=== PATIENT | male | born 1995 | race Hispanic/Latino ===

== ENCOUNTER 2025-02-14 16:53 | Emergency (ER) | payer OTHER, SELFPAY ==
[2025-02-14] VITALS (8 sets, daily range): BP systolic 106–181; BP diastolic 65–116; PULSE 90–116; RESP 14–20; TEMP 36.5; O2SAT 98–100
--- NOTE | ~2025-02-14 | XR_ITS ---
XR chest 2V Ordering provider: MANAGER OF MARKETING PHYSICIAN History: 29 years Male with . chest pain x 1 wk, vapes . Comparison: None. FINDINGS: MEDIASTINUM: The cardiac silhouette is not enlarged. LUNGS: No infiltrates, effusions or pneumothorax. OTHER: No free air under the diaphragm. IMPRESSION: No acute cardiopulmonary pathology. Reviewed, dictated and finalized at location A.
--- NOTE | ~2025-02-14 | CT_ITS ---
CT abdomen pelvis w con Ordering provider: Juliana Santos PA-C History: 29 years Male with . epigastric pain, transaminitis, alcohol abuse . Comparison: None. Technique: CT abdomen and pelvis with IV and without oral contrast. Automated exposure control and it erative reconstruction technique were employed. The dose-length product was 439.57 mGy-cm. 100 mL Omn ipaque 350 was given IV Findings: VISUALIZED LOWER CHEST: Normal. UPPER ABDOMINAL ORGANS: Liver: Fat infiltration. Area of focal fat infiltration is also seen in the left lobe adjacent to the interlobar fissure. Gallbladder: Normal. Spleen: Normal. Stomach/duodenum: Normal. Pancreas: Focal area of enlargement is seen in the body of the pancreas near to the tail with no defi nite fat stranding seen around the pancreas. Clinical correlation for pancreatitis and follow-up advi sed. Adrenals: Normal. Kidneys: Small hypodensity in the right kidney upper pole suggestive of a cyst. Minimal fullness in t he right renal pelvis with no definite stones. PELVIC ORGANS: The bladder is underfilled with thickened wall. Evaluation for cystitis advised. BOWEL AND MESENTERY: Colon: No evidence of diverticulitis.. Normal appendix. Small Bowel: Normal. No obstruction. Peritoneum/mesentery: No free air or free fluid. No mesenteric lymphadenopathy. RETROPERITONEUM: Normal aorta. No retroperitoneal lymphadenopathy. MUSCULOSKELETAL: Superficial soft tissues: The superficial soft tissues are normal. Bones: Normal spine. IMPRESSION: 1. No evidence of appendicitis, diverticulitis or intestinal obstruction. 2. Focal area of enlargement seen in the body of the pancreas near to the tail with no definite surr ounding fat stranding. Further evaluation for pancreatitis and follow-up advised. 3. Fat infiltration of the liver. 4. Slight thickening of the wall of the urinary bladder. Evaluation for cystitis advised. Reviewed, dictated and finalized at location A. IMPRESSION: 1. No evidence of appendicitis, diverticulitis or intestinal obstruction. 2. Focal area of enlargement seen in the body of the pancreas near to the tail with no definite surrounding fat stranding. Further evaluation for pancreatiti s and follow-up advised. 3. Fat infiltration of the liver. 4. Slight thickening of the wall of the urinary bladder. Evaluation for cystit is advised.
--- NOTE | 2025-02-14 17:02 | ECG_ITS ---
Test Date: 2025-02-14 17:06:13 Measurements Intervals [place] Rate: 115 P: 65 IA: 129 QRS: 22 QRSD: 86 T: 70 QT: 289 QTc: 401 Interpretive Statements SINUS TACHYCARDIA DELAYED PRECORDIAL R/S TRANSITION BASELINE ARTIFACT- I, II, III, AVR, AVL,A VF, V1 ABNORMAL ECG No previous ECG available for comparison Electronically Signed On 02-14-2025 20:22:16 CDT by Stephen Alfonso D.O.
[2025-02-14 17:18] LABS: Basophils Absolute Auto 0.1 K/mm3 (0.0-0.1); Basophils Percent Auto 0.7 % (0.2-1.2); Hematocrit 48.4 % (42.0-52.0); Hemoglobin 16.6 g/dL (14.0-18.0); Immature Granulocyte Absolute 0.03 K/mm3 (0.00-0.031); Immature Granulocyte Percent A 0.3 % (0-0.5); Lymphocytes Absolute Auto 0.65 K/mm3 (0.9-3.2); Lymphocytes Percent Auto 7.5 % (18.3-44.2); Mean Corpuscular HGB Conc 34.3 g/dl (32-36); Mean Corpuscular Volume 84.6 fl (80-100); Mean Platelet Volume 8.6 fl (7.4-10.4); Monocytes Absolute Auto 0.7 K/mm3 (0.1-0.6); Monocytes Percent Auto 8.4 % (2.6-8.5); Neutrophils Absolute Auto 7.2 K/mm3 (1.3-6.7); Neutrophils Percent Auto 83.1 % (45.5-73.1); Platelet Count Result 210 k/mm3 (150-375); Red Blood Count 5.72 M/mm3 (4.6-6.20); White Blood Count 8.6 K/mm3 (4.5-10.0)
[2025-02-14 17:31] LABS: INR 0.9
[2025-02-14 17:32] LABS: Partial Thromboplastin Time 26.8 Seconds (22.3-36.8)
[2025-02-14 17:35] LABS: Alanine Aminotransferase 263 U/L (6-50); Albumin Level 5.3 g/dL (3.5-5.1); Alkaline Phosphatase 93 U/L (38-126); Anion Gap 17 mmol/L (4-12); Aspartate Amino Transferase 225 U/L (17-59); Bilirubin,Total 1.1 mg/dL (0.2-1.3); Blood Urea Nitrogen 7 mg/dL (9-20); Calcium 10.2 mg/dL (8.4-10.2); Carbon Dioxide 23 mmol/L (22-30); Chloride 98 mmol/L (98-107); Estimated CRCL calculation 145 ml/min; Estimated Glomerular Filt Rate > 60; Glucose 112 mg/dL (65-110); Lipase 207 U/L (23-300); Potassium 4.2 mmol/L (3.4-5.0); Sodium 138 mmol/L (137-145); Total Protein 9.3 g/dL (6.3-8.2)
[2025-02-14 17:47] LABS: Troponin I < 0.012 ng/mL (0.000-0.034)
--- NOTE | 2025-02-14 19:59 | ED_ITS ---
HPI - Chest Pain General Chief Complaint: Chest Pain Stated Complaint: chest pain Time Seen by Provider: 02/14/25 19:50 Source: patient Mode of arrival: ambulatory Limitations: no limitations History of Present Illness HPI narrative: This is a 29 year old male that presents to the ER for chest pain. Reports symptoms ongoing over the last week. Reports chest discomfort, palpitations, anxiety, shakiness. Reports his symptoms are relieved by drinking. Patient drinks about 12 beers a night. Reports he would like to stop drinking. Related Data Allergies Allergy/AdvReac Type Severity Reaction Status Date / Time No Known Allergies Allergy Verified 02/14/25 17:01 Review of Systems 2 Review of Systems: All systems reviewed & are unremarkable except as noted in HPI and below PMFSH Past Medical History Medical History (Updated 02/14/25 @ 23:12 by Juliana Santos PA-C) History of atrial fibrillation Social History Social History (Updated 02/14/25 @ 20:01 by Juliana Santos PA-C) Alcohol intake: current Exam 2 Narrative: GENERAL: Anxious, shaky HEAD: Normocephalic, atraumatic. EYES: EOMI. ENT: Nares clear, no rhinorrhea or epistaxis. Mucous membranes moist. Oropharynx without tonsillar hypertrophy exudate or other lesions. CHEST: Clear to auscultation. No respiratory distress. No wheezes rales or rhonchi HEART: Regular rate and rhythm. No murmur heard. Normal peripheral pulses. ABDOMEN: Soft, nontender, nondistended, normal active bowel sounds. EXTREMITIES: Normal range of motion. No edema. SKIN: Warm, dry, no rash. NEURO: No focal deficits. Alert and oriented x3. PSYCH: Anxious Course Course Emergency Course: Patient updated on his workup, resting comfortably. Agrees with plan of care Vital Signs Vital signs: Vital Signs Temperature 97.7 F 02/14/25 16:57 Pulse Rate 116 H 02/14/25 16:57 Respiratory Rate 20 02/14/25 16:57 Blood Pressure 173/116 H 02/14/25 16:57 Pulse Oximetry 99 02/14/25 16:57 Oxygen Delivery Room Air 02/14/25 16:57 Temperature 97.7 F 02/14/25 16:57 Pulse Rate 95 02/14/25 22:57 Respiratory Rate 14 02/14/25 22:57 Blood Pressure 121/90 06/21/25 22:57 Pulse Oximetry 100 02/14/25 22:57 Oxygen Delivery Room Air 02/14/25 19:43 MDM - Chest Pain MDM Narrative Medical decision making narrative: Patient presents the emergency department for symptoms of chest pain, anxiety, shakiness. Reports they are relieved when he drinks alcohol. Reports he drinks beer nightly. He does reports he would like to stop drinking. No previous history of alcohol withdrawal or seizures. Tachycardic and hypertensive upon arrival, hydrated with IV fluids, given dose of Ativan with normalization of his vital signs. CBC without concerning findings. Metabolic panel with transaminitis. Lipase is normal. Urine drug screen is negative. Alcohol level is not elevated. EKG without acute ST changes, baseline and 3 hour troponin are negative. Chest x-ray without acute cardiopulmonary abnormality. CT abdomen and pelvis shows some enlargement of the pancreas, patient's lipase is normal. Fatty infiltration of the liver. Patient updated on his workup, resting comfortably. Agrees with plan of care. He will be started on Librium taper and pantoprazole. Provided resources for alcohol abuse. Given warnings to return to the ER Differential Diagnosis Differential diagnosis: Likely stable angina, unstable angina pectoris, costochondritis, chest pain, biliary colic and other (Pancreatitis) Lab Data Attestation: I reviewed the patient's lab results. 02/14/25 17:13 02/14/25 17:13 Labs: Lab Results 02/14/25 02/14/25 02/14/25 Range/Units 17:13 20:24 22:02 WBC 8.6 (4.5-10.0) K/mm3 RBC 5.72 (4.6-6.20) M/mm3 Hgb 16.6 (14.0-18.0) g/dL Hct 48.4 (42.0-52.0) % MCV 84.6 (80-100) fl MCH 29.0 (26-34) pg MCHC 34.3 (32-36) g/dl RDW 13.0 (11.5-14.5) % Plt Count 210 (150-375) k/mm3 MPV 8.6 (7.4-10.4) fl Immature Gran % (Auto) 0.3 (0-0.5) % Neut % (Auto) 83.1 H (45.5-73.1) % Lymph % (Auto) 7.5 L (18.3-44.2) % [place] % (Auto) 8.4 (2.6-8.5) % Eos % (Auto) 0.0 (0-4.4) % Baso % (Auto) 0.7 (0.2-1.2) % Lymph # (Auto) 0.65 L (0.9-3.2) K/mm3 [place] # (Auto) 0.7 H (0.1-0.6) K/mm3 Eos # (Auto) 0.0 (0-0.3) K/mm3 Baso # (Auto) 0.1 (0.0-0.1) K/mm3 Abs Immat Gran (auto) 0.03 (0.00-0.031) K/mm3 Absolute Neuts (auto) 7.2 H (1.3-6.7) K/mm3 Absolute Nucleated RBC 0.000 (0.0-0.012) K/mm3 Nucleated RBC % 0.0 (0.0-0.2) % PT 12.0 (11.1-14.7) Seconds INR 0.9 APTT 26.8 (22.3-36.8) Seconds Sodium 138 (137-145) mmol/L Potassium 4.2 (3.4-5.0) mmol/L Chloride 98 (98-107) mmol/L Carbon Dioxide 23 (22-30) mmol/L Anion Gap 17 H (4-12) mmol/L BUN 7 L (9-20) mg/dL Creatinine 0.61 L (0.7-1.3) mg/dL Estim Creat Clear Calc 145 ml/min Estimated GFR > 60 (59 - ) Glucose 112 H (65-110) mg/dL Calcium 10.2 (8.4-10.2) mg/dL Total Bilirubin 1.1 (0.2-1.3) mg/dL AST 225 H (17-59) U/L ALT 263 H (6-50) U/L Alkaline Phosphatase 93 (38-126) U/L Troponin I < 0.012 < 0.012 (0.000-0.034) ng/mL Total Protein 9.3 H (6.3-8.2) g/dL Albumin 5.3 H (3.5-5.1) g/dL Lipase 207 (23-300) U/L Urine Opiates Screen Negative (Negative) Urine Methadone Screen Negative (Negative) Ur Barbiturates Screen Negative (Negative) Ur Phencyclidine Scrn Negative (Negative) Ur Amphetamine Screen Negative (Negative) U Benzodiazepines Scrn Negative (Negative) Urine Cocaine Screen Negative (Negative) U Cannabinoids Screen Negative (Negative) Ethyl Alcohol < 10 (<10) mg/dL Imaging Data Radiologist's impression: ITS Impressions Chest X-Ray 02/14/25 18:26 IMPRESSION: No acute cardiopulmonary pathology. Abdomen/Pelvis CT 02/14/25 22:04 IMPRESSION: 1. No evidence of appendicitis, diverticulitis or intestinal obstruction. 2. Focal area of enlargement seen in the body of the pancreas near to the tail with no definite surrounding fat stranding. Further evaluation for pancreatitis and follow-up advised. 3. Fat infiltration of the liver. 4. Slight thickening of the wall of the urinary bladder. Evaluation for cystitis advised. ECG Data EKG #1: ECG completion date: 02/14/25 EKG Interpretation: tachycardia, sinus rhythm, no ST changes and normal QT Critical Care Time Critical Care Time Critical Care Time: No Discharge Plan Discharge Clinical Impression: Alcohol abuse, Transaminitis Chest pain Qualifiers: Chest pain type: unspecified Qualified Code(s): R07.9 - Chest pain, unspecified Patient Disposition: Home Condition: Improved Instructions: Chest Pain (ED), Abuse of Alcohol (ED), Transaminitis (ED) Additional Instructions: Return to the emergency department if you experience fever, chest pain, shortness of breath, abdominal pain with nausea and vomiting, weakness, numbness, you pass out, or any other symptoms that are concerning to you. Take Chlordiazepoxide for your withdrawal symptoms. Take pantoprazole as prescribed Follow up with resources provided for alcohol abuse Patient Language: French Prescriptions: New chlordiazepoxide HCl 25 mg capsule See Rx Instructions .ROUTE .COMPLEX PRN (Reason: alcohol withdrawal) Qty: 20 0RF Rx Instructions: Day 1, 50mg every 6 hours. Day 2, 50mg every 8 hours. Day 3, 50mg every 12 hours. Day 4, 25mg every 12 hours, then discontinue. pantoprazole 40 mg tablet,delayed release (DR/EC) 40 mg PO HS 28 Days Qty: 28 0RF Follow-up/Referrals: PHYSICIAN,SERVICE OPERATIONS MANAGER [Primary Care Provider] - Valentin Davis MD [Physician] - Quality HEART score for chest pain patients History: slightly suspicious ECG: normal Age: < or = to 45 years Risk factors: 1 or 2 risk factors Troponin: < or = to 1x normal limit Heart score: 1
[2025-02-14 20:55] LABS: Ethanol < 10 mg/dL (<10)
[2025-02-14 21:06] LABS: Troponin I < 0.012 ng/mL (0.000-0.034)
[2025-02-14] MEDS: SODIUM CHLORIDE 0.9% IV 1,000 ML 999 ML IV CONT (21:13)
[2025-02-14] MEDS: ONDANSETRON INJ 4 MG/2 ML VIAL IV PUSH (21:13)
[2025-02-14] MEDS: FAMOTIDINE 20 MG/2 ML VIAL IV PUSH (21:15)
[2025-02-14] MEDS: LORazepam INJ (*CRX) 2 MG/ML VIAL 1 MG IV PUSH (21:17)
[2025-02-14 22:26] LABS: Amphetamine Screen Urine Negative (Negative); Barbiturate Screen Urine Negative (Negative); Benzodiazepines Screen Urine Negative (Negative); Cannabinoid Screen Urine Negative (Negative); Cocaine Screen Urine Negative (Negative); Methadone Screen Urine Negative (Negative); Opiate Screen Urine Negative (Negative); Phencyclidine Screen Urine Negative (Negative)
[2025-02-14] MEDS: chlordiazePOXIDE (*CRX) 25 MG CAPSULE 50 MG PO (23:16)
== END 2025-02-14 23:33 | disposition home or self-care (01) ==
PROVIDERS: Emergency Provider Physician Assistant
DX: R07.89 Other chest pain (principal); F10.10 Alcohol abuse, uncomplicated; Y90.0 Blood alcohol level of less than 20 mg/100 ml; R74.01 Elevation of levels of liver transaminase levels; I48.91 Unspecified atrial fibrillation; R00.0 Tachycardia, unspecified; R94.31 Abnormal electrocardiogram [ECG] [EKG]
CPT/HCPCS: 36415; 71046; 74177; 80053; 80307; 82077; 83690; 84484; 85025; 85610; 85730; 93005; 96361; 96374; 96375; 99284; A9270; J2060; J2405; J7030; Q9967

== ENCOUNTER 2025-03-13 03:15 | Emergency (ER) | payer OTHER, SELFPAY ==
--- NOTE | ~2025-03-13 | XR_ITS ---
Clinical Indication: Chest pain PA and lateral views of the chest: Comparison: 02/14/2025 Findings: The lungs are clear, without evidence of focal consolidation or pleural effusion. Cardiome diastinal silhouette is within normal limits. Bones and soft tissues are unremarkable. Impression: Normal chest. Reviewed, dictated and finalized at location . Impression: Normal chest.
[2025-03-13 03:16] VITALS: BP 135/100; PULSE 108; RESP 16; TEMP 36.3; O2SAT 97
--- OUTSIDE RECORDS SUMMARY | 2025-03-13 03:17 | XMS_ITS | Clinical Summary ---
Author Organization [facility] Address [address] [place] [id number] Care Team Providers Care Process Checker Name Role Phone No, Physician Primary Care Provider [phone] Allergies No known active allergies Medications No known medications Active Problems Problem Noted Date Diagnosed Date Alcohol abuse with withdrawal without complicati on 02/05/2025 Alcohol withdrawal syndrome without complication 01/28/2024 Atrial fibrillation with RVR 08/24/2021 Alcohol abuse Encounters Date Type Department Care Team Description 02/14/2025 1:19 PM CDT - 02/14/2025 4:16 PM CDT Emergency [address] [address] Discharge Disposition: Left without being seen 02/11/[address] [address] Pricila Basilio RN 02/10/2025 3:19 PM CDT - 02/10/2025 4:46 PM CDT Emergency [address] [address] Discharge Disposition: Left Against Medical Advice 02/05/2025 10:54 AM CDT - 02/06/2025 10:55 AM CDT Hospital Encounter [address] [address] Martin Potts MD Smith, Jose Johnson MD Alcohol abuse with withdrawal without complication (HCC) (Primary Dx); Sinus tachycardia Discharge Disposition: Left Against Medical Advice from Last 3 Months Social History Tobacco Use Types Packs/Day Years Used Date Smoking Tobacco: Never Smokeless Tobacco: Never Tobacco Cessation:Counseling Given: Not Answered Alcohol Use Standard Drinks/Week Comments Yes 6 (1 standard drink = 0.6 oz pur e alcohol) [facility] Utilities Answer Date Recorded In the past 12 months has th e electric, gas, oil, or water company threatened to shut off services in your home? No 02/06/2025 Social Connection and Isolat ion Panel [NHANES] Answer Date Recorded In a typical week, how many times do you talk on the phone with family, friends, or neighbors? More than three times a week 02/06/2025 How often do you get togethe r with friends or relatives? More than three times a week 02/06/2025 How often do you attend chur ch or judaism services? 1 to 4 times per year 02/06/2025 Do you belong to any clubs o r organizations such as mosque groups, unions, fraternal or athletic groups, or school groups? No 02/06/2025 How often do you attend meet ings of the clubs or organizations you belong to? Never 02/06/2025 Are you , , di vorced, , never , or living with a partner? Never 02/06/2025 AUDIT-C Answer Date Recorded Q1: How often do you have a drink containing alcohol? 4 or more times a week 01/28/2024 Q2: How many drinks containi ng alcohol do you have on a typical day when you are drinking? 7 to 9 Q3: How often do you have si x or more drinks on one occasion? Daily or almost daily 01/28/2024 Overall Financial Resource Strain (CARDIA) Answe r Date Recorded How hard is it for you to pa y for the very basics like food, housing, medical care, and heating? Somewhat hard 02/06/2025 Hunger Vital Sign Answer Date Recorded Within the past 12 months, y ou worried that your food would run out before you got the money to buy more. Never true 02/07/20 25 Within the past 12 months, t he food you bought just didn't last and you didn't have money to get more. Never true 02/06/2025 PRAPARE - Transportation Answer Date Re corded In the past 12 months, has l ack of transportation kept you from medical appointments or from getting medications? No 01/25 In the past 12 months, has l ack of transportation kept you from meetings, work, or from getting things needed for daily living? No 02/06/2025 Housing Stability Vital Sign Answer Chase e Recorded In the last 12 months, was t here a time when you were not able to pay the mortgage or rent on time? No 02/06/2025 In the past 12 months, how m any times have you moved where you were living? 0 02/06/2025 At any time in the past 12 m [facility], were you homeless or living in a jail (including now)? No 02/06/2025 Personal Safety Answer Date Recorded Have you ever been in or are you currently in a harmful physical or emotional relationship or is someone making you feel afraid or unsafe? Denies 02/14/2025 Sex and Gender Information Value Date Recorded Sex Assigned at Not on file Legal Sex Male 8:46 PM [employer] Gender Identity Male 08/26/2023 6:42 AM [employer] Sexual Orientation Not on file Obstetrics History Last Filed Vital Signs Vital Sign Reading Time Taken Comments Blood Pressure 165/115 02/14/2025 2:59 PM CDT Pulse 123 02/14/2025 2:59 PM CDT Temperature 36.7 C (98.1 F) 02/14/2025 2:59 PM CDT Respiratory Rate 16 02/14/2025 2:59 PM CDT Oxygen Saturation 98% 02/14/2025 2:59 PM CDT Inhaled Oxygen Concentration - - Weight 81.6 kg (180 lb) 02/14/2025 2:59 PM CDT Height 170.2 cm (5' 7) 02/14/2025 2:59 PM CDT Body Mass Index 28.19 02/14/2025 2:59 PM CDT Plan of Treatment Health Maintenance Due Date Last Done Comments Depression Screening 1997 Regular Well Visit/Exam 18-64 2015 Influenza Vaccine (Season Ended) 2025 06/02/20 13 DTaP/Tdap/Td Vaccine (4 - Td or Tdap) 06/11/2025 06/11/2015, 03/26/2009, 04/11/2001 Hepatitis B Screening Completed 03/18/1998 , 1997, 1997 Pneumococcal vaccine <65 Completed 04/11/2001 Varicella Vaccines Completed 03/09/2007, 03/19/1998 HPV Vaccines Completed 10/07/2013, 02/2013, 04/01/2013 Hepatitis C Screening Completed 01/29/2024 Procedures Procedure Name Priority Date/Time Associated Diagnosis Comments TROPONIN T HIGH-SENSITIVITY 2-HOUR Timed 02/14/2025 3:41 PM CDT XR CHEST PA LATERAL 2 VIEWS ED 02/14/2025 2:17 PM CDT EGFR STAT 02/14/2025 1:44 PM CDT DIFFERENTIAL AUTO STAT 02/14/2025 1:4 4 PM CDT TROPONIN T HIGH-SENSITIVITY SERIES (BASELINE, 2HR, 4HR, 6HR) STAT 02/14/2025 1:44 PM CDT COMPREHENSIVE METABOLIC PANEL STAT 02/14/2025 1:44 PM CDT CBC WITH AUTO DIFFERENTIAL STAT 02/14/2025 1:44 PM CDT ECG 12-LEAD STAT 02/14/2025 1:26 PM CDT EGFR Routine 02/06/2025 2:36 AM CDT BASIC METABOLIC PANEL Routine 02/06/2025 2:36 AM CDT CBC WITHOUT DIFFERENTIAL Routine 02/06/2025 2:36 AM CDT D-DIMER, QUANTITATIVE STAT 02/05/2025 2:31 PM CDT ECG 12-LEAD Routine 02/05/2025 2:14 PM CDT THYROID FUNCTION CASCADE Timed 02/05/2025 12:32 PM CDT LIPASE Timed 02/05/2025 12:32 PM CDT TROPONIN T HIGH-SENSITIVITY 2-HOUR Timed 02/05/2025 12:32 PM CDT PRO B-TYPE NATRIURETIC PEPTIDE STAT 02/05/2025 10:53 AM CDT TROPONIN T HIGH-SENSITIVITY SERIES (BASELINE, 2HR, 4HR, 6HR) STAT 02/05/2025 10:53 AM CDT MAGNESIUM STAT 02/05/2025 10:53 AM CDT EGFR STAT 02/05/2025 10:53 AM CDT URINALYSIS, MICROSCOPIC ONLY STAT 02/05/2025 10:53 AM CDT DIFFERENTIAL AUTO STAT 02/05/2025 10: 53 AM CDT DRUGS OF ABUSE SCREEN, URINE WITHOUT CONFIRMATION STAT 02/05/2025 10:53 AM CDT ETHANOL STAT 02/05/2025 10:53 AM CDT COMPREHENSIVE METABOLIC PANEL STAT 02/05/2025 10:53 AM CDT CBC WITH AUTO DIFFERENTIAL STAT 02/05/2025 10:53 AM CDT URINALYSIS AND REFLEX TO MICROSCOPIC AND CULTURE STAT 02/05/2025 10:53 AM CDT ECG 12-LEAD STAT 02/05/2025 10:40 AM CDT HEPATITIS PANEL, ACUTE Routine 4:59 AM CDT from Last 3 Months or Most Recently Relevant to Health Maintenance Results * Troponin T high-sensitivity 2-hour (02/14/2025 3:41 PM CDT) Trop T hs See Comment <=22 Comment: Credited due to hemolysis; if immediate recollection is needed, enter an order for a standalone troponin. Do not reorder the troponin series. Interpretive Data For further hscTnT resources including the diagnostic algorithm and an aid in interpretation, copy and paste this link: https://nrl.testcatalog.org/show/hsTrop Current Interpretive Data last revised 2020. Trop T hs interp See Comment CARMELLA HORTON Comment:Credited due to hemo lysis. If immediate recollection needed order a stand alone troponin. Blood 02/14/2025 3:41 PM CDT 02/14/2025 3:52 PM CDT us Tess STERLING LAB BLOOD ORDERABLES Final Re sult CARMELLA HORTON [address] [facility] [place] [address] * XR Chest PA Lateral 2 Views (02/14/2025 2:17 PM CDT) Anatomical Region Laterality Modality Body, Chest N/A Computed Radiogr aphy 02/14/2025 2:39 PM CDT Narrative 02/14/2025 2:42 PM CDT EXAM DESCRIPTION: XR CHEST PA LATERAL 2 VIEWS REASON FOR STUDY: chest pain Chest pain x 2 weeks and nausea and vomiting x 3 days. Pt states that he has HTN, denies meds. Pt states he uses ETOH daily for blood pressure and chest pain. He states this numbs his pain. TECHNIQUE: Frontal and lateral radiographic view(s) of the chest. COMPARISON: None available. FINDINGS: LUNGS: No focal opacity, pleural effusion, or pneumothorax. HEART/MEDIASTINUM: Cardiac silhouette normal in size. Mediastinal and hilar contours appear normal. LINES/TUBES: None. BONES: No acute osseous abnormality. IMPRESSION: No acute cardiopulmonary abnormality. THIS IS AN ELECTRONICALLY VERIFIED FINAL REPORT 02/14/2025 2:42 PM - Electronically signed by Freedom Thomas M.D. T: Report ID: [id number] Reading Location: [place] [address] Procedure Note Freedom Thomas, DO - 02/14/2025 EXAM DESCRIPTION: XR CHEST PA LATERAL 2 VIEWS REASON FOR STUDY: chest pain Chest pain x 2 weeks and nausea and vomiting x 3 days. Pt states that hehas HTN, denies meds. Pt states he uses ETOH daily for blood pressureand chest pain. He states this numbs his pain. TECHNIQUE: Frontal and lateral radiographic view(s) of the chest. COMPARISON: None available. FINDINGS: LUNGS: No focal opacity, pleural effusion, or pneumothorax. HEART/MEDIASTINUM: Cardiac silhouette normal in size. Mediastinal andhilar contours appear normal. LINES/TUBES: None. BONES: No acute osseous abnormality. IMPRESSION: No acute cardiopulmonary abnormality. THIS IS AN ELECTRONICALLY VERIFIED FINAL REPORT 02/14/2025 2:42 PM - Electronically signed by Freedom Thomas M.D. T: Report ID: [id number] Reading Location: [place] [address] Tess STERLING IMG XR PROCEDURES Final Resul t * Troponin T high-sensitivity series (baseline, 2hr, 4hr, 6hr) (02/14/2025 1:44 PM CDT) [facility] Trop T hs <6 <=22 ng/L Comment: Interpretive Data For further hscTnT resources including the diagnostic algorithm and an aid in interpretation, copy and paste this link: https://nrl.testcatalog.org/show/hsTrop Current Interpretive Data last revised 2020. Blood 02/14/2025 1:44 PM CDT 02/14/2025 1:48 PM CDT Tess STERLING LAB BLOOD ORDERABLES Final Re sult CARMELLA [address] [facility] Department [place] [address] * eGFR (02/14/2025 1:44 PM CDT) [facility] eGFR >90 >=60 mL/min/1. 73 m2 Comment: Interpretive Data Reference Interval Normal >/= 90 mL/min/1.73m2 Mildly decreased* 60 - 89 mL/min/1.73m2 Mildly to moderately decreased 45 - 59 mL/min/1.73m2 Moderately to severely decreased 30 - 44 mL/min/1.73m2 Severely decreased 15 - 29 mL/min/1.73m2 Kidney Failure < 15 mL/min/1.73m2 *Relative to young adult level Estimated glomerular filtration rate is determined by the 2020 CKD-EPI equation recommended by the National Kidney Foundation (A Unifying Approach to GFR Estimation: Recommendations of the NKF-ASK Task Force on Reassessing the Inclusion of Race in Diagnosing Kidney Disease, JASN 202). The CKD-EPI equation should not be used for patients with unstable renal function and has not been validated in children and those over 70. Current interpretive data was last reviewed 2021. Blood 02/14/2025 1:44 PM CDT 02/14/2025 1:48 PM CDT us Tess STERLING LAB BLOOD ORDERABLES Final Re sult [place] [id number] [facility] Department [place] [address] * (ABNORMAL) Differential, auto (02/14/2025 1:44 PM CDT) Pathologist [facility] Neutrophil abs 4.12 1.50 - 6.50 K/cumm Imm gran abs 0.01 0.00 - 0.10 K/cumm [facility] Lymphocyte abs 0.68(L) 0.80 - 3.30 K/cumm [facility] Monocyte abs 0.45 0.20 - 0.80 K/cumm [facility] Eosinophil abs 0.02 0.00 - 0.50 K/cumm [facility] Basophil abs 0.05 0.00 - 0.10 K/cumm [facility] Neutrophil pct 77.3 % [facility] Comment: Interpretive Data Percent cell count reference ranges are not reported, since discordance with absolute values may lead to misinterpretation of CBC data. Current Interpretive Data was last revised on 2017. Imm gran pct 0.2 % [facility] Comment: Interpretive Data Percent cell count reference ranges are not reported, since discordance with absolute values may lead to misinterpretation of CBC data. Current Interpretive Data was last revised on 2017. Lymphocyte pct 12.8 % [facility] Comment: Interpretive Data Percent cell count reference ranges are not reported, since discordance with absolute values may lead to misinterpretation of CBC data. Current Interpretive Data was last revised on 2017. Monocyte pct 8.4 % [facility] Comment: Interpretive Data Percent cell count reference ranges are not reported, since discordance with absolute values may lead to misinterpretation of CBC data. Current Interpretive Data was last revised on 2017. Eosinophil pct 0.4 % [facility] Comment: Interpretive Data Percent cell count reference ranges are not reported, since discordance with absolute values may lead to misinterpretation of CBC data. Current Interpretive Data was last revised on 2017. Basophil pct 0.9 % [facility] Comment: Interpretive Data Percent cell count reference ranges are not reported, since discordance with absolute values may lead to misinterpretation of CBC data. Current Interpretive Data was last revised on 2017. Blood 02/14/2025 1:44 PM CDT 02/14/2025 1:48 PM CDT us Tess STERLING LAB BLOOD ORDERABLES Final Re sult [facility] [address] [facility] Department of Laboratories [place], [place] [id number] * (ABNORMAL) CBC with auto differential (02/14/2025 1:44 PM CDT) Pathologist [facility] WBC 5.33 3.80 - 9.90 K/cumm Hgb 17.0 13.0 - 17.5 g/dL [facility] Hct 48.9 38.9 - 50.3 % [facility] Plt 198 150 - 400 K/cumm [facility] MPV 8.9(L) 9.1 - 12.3 fL [facility] RBC 5.83(H) 4.30 - 5.80 M/cumm [facility] MCV 83.9 81.3 - 96.4 fL [facility] MCH 29.2 27.1 - 33.3 pg [facility] MCHC 34.8 32.3 - 35.7 g/dL [facility] RDW CV 13.0 11.1 - 14.9 % [facility] RDW SD 39.0 35.7 - 48.1 fL [facility] NRBC abs 0.00 0.00 - 0.01 K/cumm [facility] Blood Venous blood specimen / Unknown 02/14/2025 1:44 PM CDT 02/14/2025 1:48 PM CDT us Tess STERLING LAB BLOOD ORDERABLES Final Re sult [facility] [address] [facility] Department [place] [address] * (ABNORMAL) Comprehensive metabolic panel (02/14/2025 1:44 PM CDT) Sodium 139 135 - 145 mmol/L Potassium, pl 4.0 3.3 - 4.9 mmol/L [facility] Comment:Hemolyzed; Potassium value may be falsely elevated by as much as 1.0 mmol/L. Suggest redraw and reanalysis. Chloride 98 97 - 110 mmol/L [facility] CO2 21(L) 22 - 32 mmol/L [facility] Anion gap 20(H) 2 - 15 mmol/L [facility] BUN 7 6 - 25 mg/dL [facility] Creatinine 0.63(L) 0.80 - 1.30 mg/dL [facility] Glucose 100 70 - 199 mg/dL [facility] Comment: Interpretive Data Fasting glucose >/= 126 mg/dl is diagnostic for diabetes. Fasting is defined as no caloric intake for at least 8 hours. Fasting glucose between 100 mg/dl to 125 mg/dl is diagnostic of prediabetes. In a patient with classic symptoms of hyperglycemia or hyperglycemic crisis, a random glucose >/= 200 mg/dl is diagnostic for diabetes. In the absence of unequivocal hyperglycemia, results should be confirmed by repeat testing. The classification and Diagnosis of Diabetes Diabetes Care 2021; 46: S19-S40. Current interpretive data was last revised 2022. Calcium 9.8 8.5 - 10.3 mg/dL [facility] Bilirubin, total 0.7 0.1 - 1.2 mg/dL [facility] Protein, pl 8.6(H) 6.5 - 8.5 g/dL [facility] Albumin 5.0 3.5 - 5.0 g/dL [facility] Alk phos 86 40 - 130 Units/L [facility] ALT 238(H) 7 - 55 Units/L [facility] AST 203(H) 10 - 50 Units/L [facility] Comment:Hemolyzed; result ma y be falsely elevated Blood 02/14/2025 1:44 PM CDT 02/14/2025 1:48 PM CDT Tess STERLING LAB BLOOD ORDERABLES Final Re sult Performing Organization Address City/[facility]/ZIP Co de Phone Number [facility] [address] [facility] Department [place] [address] * ECG 12 lead (02/14/2025 1:26 PM CDT) Pathologist [facility] Ventricular Rate EKG/Min 117 BPM [facility] Atrial Rate 117 BPM [facility] NV-Interval (MSEC) 126 ms [facility] QRS-Interval (MSEC) 78 ms [facility] QT-Interval (MSEC) 308 ms [facility] QTc 429 ms [facility] P [place] 51 degrees [facility] R [place] 39 degrees [facility] T [place] 59 degrees [facility] Diagnosis Sinus tachycardia Otherwise normal ECG When compared with ECG of 05-FEB-2025 14:14, No significant change was found Confirmed by AMANDA MCCRACKEN M.D. ([id number]) on 02/16/2025 9:13:41 AM [facility] 02/14/2025 1:26 PM CDT 02/16/2025 9:13 AM CDT us Tess STERLING ECG ORDERABLES Final Result Performing Organization Address City/[facility]/ZIP Co de Phone Number [facility] * eGFR (02/06/2025 2:36 AM CDT) Pathologist [facility] eGFR >90 >=60 mL/min/1. 73 m2 Comment: Interpretive Data Reference Interval Normal >/= 90 mL/min/1.73m2 Mildly decreased* 60 - 89 mL/min/1.73m2 Mildly to moderately decreased 45 - 59 mL/min/1.73m2 Moderately to severely decreased 30 - 44 mL/min/1.73m2 Severely decreased 15 - 29 mL/min/1.73m2 Kidney Failure < 15 mL/min/1.73m2 *Relative to young adult level Estimated glomerular filtration rate is determined by the 2020 CKD-EPI equation recommended by the National Kidney Foundation (A Unifying Approach to GFR Estimation: Recommendations of the NKF-ASK Task Force on Reassessing the Inclusion of Race in Diagnosing Kidney Disease, JASN 2020). The CKD-EPI equation should not be used for patients with unstable renal function and has not been validated in children and those over 70. Current interpretive data was last reviewed 2021. Blood 02/06/2025 2:36 AM CDT 02/06/2025 3:00 AM CDT us Melanie Guzman NP LAB BLOOD ORDERABLES Final R esult [facility] [address] [facility] Department [place] [address] * CBC without differential (02/06/2025 2:36 AM CDT) [facility] WBC 7.53 3.80 - 9.90 K/cumm Hgb 15.2 13.0 - 17.5 g/dL [facility] Hct 43.2 38.9 - 50.3 % [facility] Plt 193 150 - 400 K/cumm [facility] MPV 9.3 9.1 - 12.3 fL [facility] RBC 5.00 4.30 - 5.80 M/cumm [facility] MCV 86.4 81.3 - 96.4 fL [facility] MCH 30.4 27.1 - 33.3 pg [facility] MCHC 35.2 32.3 - 35.7 g/dL [facility] RDW CV 12.6 11.1 - 14.9 % [facility] RDW SD 39.5 35.7 - 48.1 fL [facility] NRBC abs 0.00 0.00 - 0.01 K/cumm [facility] Blood 02/06/2025 2:36 AM CDT 02/06/2025 3:00 AM CDT Melanie Guzman LAB BLOOD ORDERABLES Final R esult Performing Organization Address City/[facility] Co de Phone Number [facility] [address] [facility] Department [place] [address] * (ABNORMAL) Basic metabolic panel (02/06/2025 2:36 AM CDT) Pathologist [facility] Sodium 137 135 - 145 mmol/L Potassium, pl 4.2 3.3 - 4.9 mmol/L [facility] Chloride 99 97 - 110 mmol/L [facility] CO2 27 22 - 32 mmol/L [facility] Anion gap 11 2 - 15 mmol/L [facility] BUN 10 6 - 25 mg/dL [facility] Creatinine 0.70(L) 0.80 - 1.30 mg/dL [facility] Glucose 89 70 - 199 mg/dL [facility] Comment: Interpretive Data Fasting glucose >/= 126 mg/dl is diagnostic for diabetes. Fasting is defined as no caloric intake for at least 8 hours. Fasting glucose between 100 mg/dl to 125 mg/dl is diagnostic of prediabetes. In a patient with classic symptoms of hyperglycemia or hyperglycemic crisis, a random glucose >/= 200 mg/dl is diagnostic for diabetes. In the absence of unequivocal hyperglycemia, results should be confirmed by repeat testing. The classification and Diagnosis of Diabetes Diabetes Care 202; 46: S19-S40. Current interpretive data was last revised 2022. Calcium 9.2 8.5 - 10.3 mg/dL [facility] Blood 02/06/2025 2:36 AM CDT 02/06/2025 3:00 AM CDT Melanie Guzman NP LAB BLOOD ORDERABLES Final R esult Performing Organization Address City/[facility] Co de Phone Number CARMELLA [address] [place] [address] * D-dimer, quantitative (02/05/2025 2:31 PM CDT) D-Dimer <270 <=499 ng/mL FEU Comment: Interpretive data FDA approved the D-dimer, in conjunction with a low or moderate pretest probability score, to exclude venous thromboembolic events (VTE) (PE and DVT) in outpatients when the D-dimer result is < 500 ng/ml FEU. Evidence supports using an age-adjusted D-dimer cut-off for outpatients older than 50 (age x 10) to improve specificity without sacrificing sensitivity. Example: age 68, VTE cut-off 680 ng/ml FEU. References; Schaleksandr HT et al. Brit Med J. 2013;346:f2492. Consuelo et al. Annals Int Med. 2015;163:701-11. Current interpretive data was last revised on 2019. Blood 02/05/2025 2:31 PM CDT 02/05/2025 2:33 PM CDT us Martin Potts MD LAB BLOOD ORDERABLE S Final Result Performing Organization Address [facility] Co de Phone Number CARMELLA [address] [place] [address] * ECG 12 lead (02/05/2025 2:14 PM CDT) Ventricular Rate EKG/Min 143 BPM [facility] Atrial Rate 143 BPM [facility] [place]-Interval (MSEC) 122 ms [facility] QRS-Interval (MSEC) 78 ms [facility] QT-Interval (MSEC) 290 ms [facility] QTc 447 ms [facility] P [place] 47 degrees [facility] R [place] -6 degrees [facility] T [place] 72 degrees [facility] Diagnosis Sinus tachycardia Otherwise normal ECG When compared with ECG of 05-FEB-2025 10:40, Rate has increased Confirmed by RUSSEL DON M.D. ([id number]) on 02/09/2025 11:46:12 AM [facility] 02/05/2025 2:14 PM CDT 02/09/2025 11:46 AM CDT us Martin Potts MD ECG ORDERABLES Fin al Result Performing Organization Address City/[facility]/ZIP Co de Phone Number [facility] * Troponin T high-sensitivity 2-hour (02/05/2025 12:32 PM CDT) Trop T hs <6 <=22 ng/L Comment: Interpretive Data For further hscTnT resources including the diagnostic algorithm and an aid in interpretation, copy and paste this link: https://nrl.testcatalog.org/show/hsTrop Current Interpretive Data last revised 2020. Trop T hs delta 0 ng/L [facility] Trop T hs interp Insignificant [facility] Blood 02/05/2025 12:3 2 PM CDT 02/05/2025 12:36 PM CDT us Martin Potts MD LAB BLOOD ORDERABLE S Final Result Performing Organization Address [facility] de Phone Number CARMELLA [address] [place] [address] * Thyroid Function [place] (02/05/2025 12:32 PM CDT) TSH 1.71 0.30 - 4.20 mcIUnit/mL Blood 02/05/2025 12:3 2 PM CDT 02/05/2025 12:36 PM CDT Melanie Guzman NP LAB BLOOD ORDERABLES Final R esult Performing Organization Address [facility] Co de Phone Number CARMELLA [address] [employer] [place] [place] [address] * Lipase (02/05/2025 12:32 PM CDT) Lipase 42 10 - 99 Units/L Blood 02/05/2025 12:3 2 PM CDT 02/05/2025 12:36 PM CDT Melanie Guzman NP LAB BLOOD ORDERABLES Final R esult Performing Organization Address [facility] Co de Phone Number CARMELLA [address] [place] [address] * Troponin T high-sensitivity series (baseline, 2hr, 4hr, 6hr) (02/05/2025 10:53 AM CDT) Trop T hs <6 <=22 ng/L Comment: Interpretive Data For further hscTnT resources including the diagnostic algorithm and an aid in interpretation, copy and paste this link: [email or web address].testcatalog.org/show/[email or web address] Current Interpretive Data last revised 2020. Blood 02/05/2025 10:5 3 AM CDT 02/05/2025 10:57 AM CDT Martin Potts MD LAB BLOOD ORDERABLE S Final Result Performing Organization Address [facility] Co de Phone Number CARMELLA [address] [place] [address] * eGFR (02/05/2025 10:53 AM CDT) eGFR >90 >=60 mL/min/1. 73 m2 Comment: Interpretive Data Reference Interval Normal >/= 90 mL/min/1.73m2 Mildly decreased* 60 - 89 mL/min/1.73m2 Mildly to moderately decreased 45 - 59 mL/min/1.73m2 Moderately to severely decreased 30 - 44 mL/min/1.73m2 Severely decreased 15 - 29 mL/min/1.73m2 Kidney Failure < 15 mL/min/1.73m2 *Relative to young adult level Estimated glomerular filtration rate is determined by the 2020 CKD-EPI equation recommended by the National Kidney Foundation (A Unifying Approach to GFR Estimation: Recommendations of the NKF-ASK Task Force on Reassessing the Inclusion of Race in Diagnosing Kidney Disease, JASN 2020). The CKD-EPI equation should not be used for patients with unstable renal function and has not been validated in children and those over 70. Current interpretive data was last reviewed 2021. Blood 02/05/2025 10:5 3 AM CDT 02/05/2025 10:57 AM CDT us Robert Sheehan MD LAB BLOOD ORDERABLES Final Resul t [place] [id number] [facility] [place] [address] * Differential, auto (02/05/2025 10:53 AM CDT) Neutrophil abs 5.05 1.50 - 6.50 K/cumm Imm gran abs 0.02 0.00 - 0.10 K/cumm [facility] Lymphocyte abs 1.20 0.80 - 3.30 K/cumm [facility] Monocyte abs 0.48 0.20 - 0.80 K/cumm [facility] Eosinophil abs 0.03 0.00 - 0.50 K/cumm [facility] Basophil abs 0.04 0.00 - 0.10 K/cumm [facility] Neutrophil pct 74.1 % [facility] Comment: Interpretive Data Percent cell count reference ranges are not reported, since discordance with absolute values may lead to misinterpretation of CBC data. Current Interpretive Data was last revised on 2017. Imm gran pct 0.3 % [facility] Comment: Interpretive Data Percent cell count reference ranges are not reported, since discordance with absolute values may lead to misinterpretation of CBC data. Current Interpretive Data was last revised on 2017. Lymphocyte pct 17.6 % [facility] Comment: Interpretive Data Percent cell count reference ranges are not reported, since discordance with absolute values may lead to misinterpretation of CBC data. Current Interpretive Data was last revised on 2017. Monocyte pct 7.0 % [facility] Comment: Interpretive Data Percent cell count reference ranges are not reported, since discordance with absolute values may lead to misinterpretation of CBC data. Current Interpretive Data was last revised on 2017. Eosinophil pct 0.4 % CARMELLA Comment: Interpretive Data Percent cell count reference ranges are not reported, since discordance with absolute values may lead to misinterpretation of CBC data. Current Interpretive Data was last revised on 2017. Basophil pct 0.6 % CARMELLA Comment: Interpretive Data Percent cell count reference ranges are not reported, since discordance with absolute values may lead to misinterpretation of CBC data. Current Interpretive Data was last revised on 2017. Blood 02/05/2025 10:5 3 AM CDT 02/05/2025 10:57 AM CDT us Martin Potts MD LAB BLOOD ORDERABLE S Final Result CARMELLA [address] [facility] [place] [address] * Pro B-type natriuretic peptide (02/05/2025 10:53 AM CDT) NT-proBNP <36 <=300 pg/mL Comment: Interpretive Comments: A. Dyspnea in Acute Care Setting All Ages: < 300 pg/ml, acute heart failure unlikely. < 50 yrs: 300 - 450 pg/ml, further investigation warranted. > 450 pg/ml, acute heart failure likely. 50 - 74 yrs: 300 - 900 pg/ml, further investigation warranted. > 900 pg/ml, acute heart failure likely . > or = 75 yrs: 450 - 1800 pg/ml, further investigation warranted. > 1800 pg/ml, acute heart failure likely. B. Non-acute Setting < 75 yrs < 125 pg/ml, rules out heart failure. > or = 125 pg/ml, further investigation warranted. > or = 75 yrs < 450 pg/ml, rules out heart failure. > or = 450 pg/ml, further investigation warranted. - Knowledge of each individual patient's NT-proBNP range may be more useful than using similar cut-points for every patient. Please note that marked elevations in NT-proBNP levels may be observed in state other than Left Ventricular Congestive Failure, including: acute coronary syndromes, right heart strain/failure (including pulmonary embolism and cor pulmonale), critical illness, renal failure, as well as advanced age. - References: 1. Vasu HARRELL et.al. Eur Heart J. 2006:27:330-337. 2. Moncho RW, Jose CLEMENTS. J. AM Luz Cardiol: Cardiovasc Imag. 2009;2: 216- 225. Interpretive Data Last Revised Date: 2018. Blood 02/05/2025 10:5 3 AM CDT 02/05/2025 10:57 AM CDT Martin Potts MD LAB BLOOD ORDERABLE S Final Result CARMELLA [facility] [place] [address] * (ABNORMAL) Urinalysis reflex to microscopic and culture Urine (02/05/2025 10:53 AM CDT) Color, ur Straw Yellow Clarity, ur Clear Clear CARMELLA Specific gravity, ur 1.005 1.003 - 1.030 [facility] pH, urine 5.5 CARMELLA Comment: Interpretive Data U rine pH is affected by diet, medications, systemic acid-base disturbances, and renal tubular function. pH may affect urinary stone formation. For example, urine pH below 6.0 may help reduce the tendency for calcium phosphate stones and pH greater than 6.0 may reduce the tendency for uric acid stone formation. Source: [facility] Current Interpretive Data was last revised on 2017 Protein, ur ql 1+(A) Negative [facility] Glucose, ur ql Negative Negative [facility] Ketones, ur 1+(A) Negative [facility] Bilirubin, ur Negative Negative [facility] Blood, ur Negative Negative [facility] Urobilinogen, ur <2.0 <2.0 mg/dL [facility] Nitrite, ur Negative Negative [facility] Leukocyte esterase, ur Negative Negative [facility] UA reflex comment Reflex to microscopic UA will be performed. CARMELLA Urine 02/05/2025 10:5 3 AM CDT 02/05/2025 10:57 AM CDT us Martin Potts MD LAB MICROBIOLOGY - GENERAL ORDERABLES Final Result Performing Organization Address [facility] Co de Phone Number CARMELLA [address] [address] * (ABNORMAL) CBC with auto differential (02/05/2025 10:53 AM CDT) [facility] WBC 6.82 3.80 - 9.90 K/cumm Hgb 17.3 13.0 - 17.5 g/dL [facility] Hct 49.7 38.9 - 50.3 % [facility] Plt 240 150 - 400 K/cumm [facility] MPV 8.7(L) 9.1 - 12.3 fL [facility] RBC 5.83(H) 4.30 - 5.80 M/cumm [facility] MCV 85.2 81.3 - 96.4 fL [facility] MCH 29.7 27.1 - 33.3 pg [facility] MCHC 34.8 32.3 - 35.7 g/dL [facility] RDW CV 12.9 11.1 - 14.9 % [facility] RDW SD 40.0 35.7 - 48.1 fL [facility] NRBC abs 0.00 0.00 - 0.01 K/cumm [facility] Blood 02/05/2025 10:5 3 AM CDT 02/05/2025 10:57 AM CDT Martin Potts MD LAB BLOOD ORDERABLE S Final Result Performing Organization Address [facility] Co de Phone Number CARMELLA [address] [address] * Drugs of Abuse Screen, Urine without Confirmation (02/05/2025 10:53 AM CDT) [facility] Amphetamine, ur Not Detected CutOff 500ng/mL Comment: Interpretive Data - Amphetamines: Samples containing greater than 500 ng/mL d-methamphetamine or other cross-reacting amphetamine compounds are reported as positive. Amphetamine immunoassays are subject to significant false positive rates due to cross-reactivity of non-amphetamine drugs. Confirmatory testing required for definitive results. Current Interpretive Data was last reviewed 2023. Barbiturates, ur Not Detected CutOff 200ng/mL [facility] Comment: Interpretive Data - Barbiturates: Samples containing greater than 200 ng/mL secobarbital or other cross-reacting barbiturate compounds are reported as positive. False positive and false negative results are possible. Confirmatory testing required for definitive results. Current Interpretive Data was last reviewed 2023. Benzodiazepines, ur Not Detected CutOff 100ng/mL [facility] Comment: Interpretive Data - Benzodiazepines: Samples containing greater than 100 ng/mL nordiazepam or other cross-reacting compounds are reported as positive. False positive and false negative results are possible. Confirmatory testing required for definitive results. Current Interpretive Data was last reviewed 2023. Cannabinoids, ur Not Detected CutOff 50 ng/mL [facility] Comment: Interpretive Data - Cannabinoids: Samples containing greater than 50 ng/mL delta-9 THC -COOH or other cross- reacting compounds are reported as positive. False positive and false negative results are possible. Confirmatory testing required for definitive results. Current Interpretive Data was last reviewed 2023. Cocaine, ur Not Detected CutOff 150ng/mL [facility] Comment: Interpretive Data - Cocaine: Samples containing greater than 150 ng/mL benzoylecgonine or other cross- reacting compounds are reported as positive. False positive and false negative results are possible. Confirmatory testing required for definitive results. Current Interpretive Data was last reviewed 2023. Fentanyl, Ur Not Detected CutOff 5 ng/mL [facility] Comment: Interpretive Data - Fentanyl: Samples containing greater than 5 ng/mL norfentanyl, fentanyl, or other cross-reacting fentanyl compounds are reported as positive. False positive and false negative results are possible. Confirmatory testing required for definitive results. Current Interpretive Data was last reviewed 2023. Methadone, ur Not Detected CutOff 300ng/mL [facility] Comment: Interpretive Data - Methadone: Samples containing greater than 300 ng/mL d,l-methadone or other cross-reacting compounds are reported as positive. False positive and false negative results are possible. Confirmatory testing required for definitive results. Current Interpretive Data was last reviewed 2023. Opiates, ur Not Detected CutOff 300ng/mL [facility] Comment: Interpretive Data - Opiates: Samples containing greater than 300 ng/mL morphine or other cross-reacting compounds are reported as positive. False positive and false negative results are possible. Confirmatory testing required for definitive results. Current Interpretive Data was last reviewed 2023. Oxycodone, ur Not Detected CutOff 100ng/mL [facility] Comment: Interpretive Data - Oxycodone: Samples containing greater than 100 ng/mL oxycodone or other cross-reacting compounds are reported as positive. False positive and false negative results are possible. Confirmatory testing required for definitive results. Current Interpretive Data was last reviewed 2023. Phencyclidine, ur Not Detected CutOff 25 ng/mL [facility] Comment: Interpretive Data - Phencyclidine: Samples containing greater than 25 ng/mL phencyclidine or other cross-reacting compounds are reported as positive. False positive and false negative results are possible. Confirmatory testing required for definitive results. Current Interpretive Data was last reviewed 2023. Urine Creatinine 44 mg/dL CARMELLA Comment: Interpretive Data Urine Creatinine: < 10 mg/dL is extremely dilute = or > 10 but < 20 mg/dL is dilute = or > 20 mg/dL is normal Current Interpretive Data was last revised on 2017. Urine 02/05/2025 10:5 3 AM CDT 02/05/2025 10:56 AM CDT Narrative [facility] - 02/05/2025 11:25 AM CDT Drug of Abuse screening is performed by immunoassay for medical purposes only. This is not to be used for Pain Management purposes. Martin Potts MD LAB URINE ORDERABLE S Final Result CARMELLA [address] [facility] [place] [address] * Urinalysis, microscopic only (02/05/2025 10:53 AM CDT) WBC, ur 0-5 0 - 5 /HPF RBC, ur 0-2 0 - 2 /HPF [facility] Culture Reflex Comment Reflex conditions for urine culture (WBC >10) not met. CARMELLA Urine 02/05/2025 10:5 3 AM CDT 02/05/2025 10:57 AM CDT Martin Potts MD LAB URINE ORDERABLE S Final Result Performing Organization Address [facility] de Phone Number GAL[address] [address] * Magnesium (02/05/2025 10:53 AM CDT) [facility] Magnesium 2.1 1.4 - 2.5 mg/dL Blood 02/05/2025 10:5 3 AM CDT 02/05/2025 10:57 AM CDT Martin Potts MD [facility] BLOOD ORDERABLE S Final Result Performing Organization Address [facility] Phone Number [address] [address] * (ABNORMAL) Ethanol (02/05/2025 10:53 AM CDT) [facility] Ethanol 142(H) <=10 mg/dL Comment: Interpretive Data Legal limit of intoxication > or = 80 mg/dL Levels > or = 400 mg/dL are potentially TOXIC. Current interpretive data was last revised on 2018. Blood 02/05/2025 10:5 3 AM CDT 02/05/2025 10:57 AM CDT Martin Potts MD LAB BLOOD ORDERABLE S Final Result Performing Organization Address [facility] de Phone Number [address] [address] * (ABNORMAL) Comprehensive metabolic panel (02/05/2025 10:53 AM CDT) [facility] Sodium 132(L) 135 - 145 mmol/L Potassium, pl 4.1 3.3 - 4.9 mmol/L [facility] Chloride 92(L) 97 - 110 mmol/L [facility] CO2 22 22 - 32 mmol/L [facility] Anion gap 18(H) 2 - 15 mmol/L [facility] BUN 6 6 - 25 mg/dL [facility] Creatinine 0.58(L) 0.80 - 1.30 mg/dL [facility] Glucose 99 70 - 199 mg/dL [facility] Comment: Interpretive Data Fasting glucose >/= 126 mg/dl is diagnostic for diabetes. Fasting is defined as no caloric intake for at least 8 hours. Fasting glucose between 100 mg/dl to 125 mg/dl is diagnostic of prediabetes. In a patient with classic symptoms of hyperglycemia or hyperglycemic crisis, a random glucose >/= 200 mg/dl is diagnostic for diabetes. In the absence of unequivocal hyperglycemia, results should be confirmed by repeat testing. The classification and Diagnosis of Diabetes Diabetes Care 2021; 46: S19-S40. Current interpretive data was last revised 2022. Calcium 9.0 8.5 - 10.3 mg/dL [facility] Bilirubin, total 0.5 0.1 - 1.2 mg/dL [facility] Protein, pl 8.1 6.5 - 8.5 g/dL [facility] Albumin 4.7 3.5 - 5.0 g/dL [facility] Alk phos 79 40 - 130 Units/L [facility] ALT 92(H) 7 - 55 Units/L [facility] AST 111(H) 10 - 50 Units/L [facility] Blood 02/05/2025 10:5 3 AM CDT 02/05/2025 10:57 AM CDT Martin Potts MD LAB BLOOD ORDERABLE S Final Result [facility] [address] [facility] [place] [address] * ECG 12 lead (02/05/2025 10:40 AM CDT) Ventricular Rate EKG/Min 99 BPM [facility] Atrial Rate 99 BPM [facility] NV-Interval (MSEC) 130 ms [facility] QRS-Interval (MSEC) 78 ms [facility] QT-Interval (MSEC) 340 ms [facility] QTc 436 ms [facility] P [place] 44 degrees [facility] R [place] 36 degrees [facility] T [place] 62 degrees [facility] Diagnosis Normal sinus rhythm Normal ECG When compared with ECG of 28-JAN-2024 11:14, No significant change was found Confirmed by RUSSEL DON M.D. ([id number]) on 02/09/2025 11:36:08 AM [facility] 02/05/2025 10:4 0 AM CDT 02/09/2025 11:36 AM CDT Martin Potts MD ECG ORDERABLES Fin al Result [facility] * Hepatitis panel, acute Blood (01/29/2024 4:59 AM CDT) Hep A IgM Nonreactive Nonreactive Comment: Interpretive Data: If Hep A IgM Ab is reported as Equivocal, a new sample should be drawn in two weeks for testing. Current interpretive data was last revised on 19. Hep B core IgM Nonreactive Nonreactive [facility] Comment: Interpretive Data If HepB Core IgM Ab is reported as Equivocal, a new sample should be drawn in two weeks for testing. Current interpretive data was last revised on 19. Hep C Ab Nonreactive Nonreactive [facility] Comment: Antibodies to HCV not detected. Does NOT exclude the possibility of recent exposure to HCV. Current interpretive data was last revised on 22 Interpretive Data Nonreactive: Antibodies to HCV not detected. Does NOT exclude the possibility of recent exposure to HCV. Equivocal: Equivocal for HCV antibodies. Supplemental molecular testing will be automatically performed to determine infection status in accordance with current CDC screening recommendations. Reactive: Positive for HCV antibodies. This may represent current or past HCV infection. Supplemental molecular testing will be automatically performed to determine current infection status in accordance with current CDC screening recommendations. Interpretive data was last revised on 2019. HepBsAg Nonreactive Nonreactive [facility] Blood 01/29/2024 4:59 AM CDT 01/29/2024 5:09 AM CDT us Santana Chaudhry MD LAB MICROBIOLOGY - GENE RAL ORDERABLES Final Result [facility] [address] [place] [address] from Last 3 Months or Most Recently Relevant to Health Maintenance Insurance [facility] P[facility] * Guarantor: Matt Forman Account Type Relation to Patient Date of Phone Billing Address Personal/Family Self 1995 [id number] [place] [address] [facility] PPO Advance Directives For more information, please contact: [phone] * Full Code (Latest Code Status on File) Date Activated Date Inactivated Comments 02/05/2025 4:29 PM 02/06/2025 3:10 PM * Full Code Date Activated Date Inactivated Comments 01/28/2024 5:53 PM 01/29/2024 4:04 PM * Full Code Date Activated Date Inactivated Comments 08/25/2021 9:18 AM 08/25/2021 4:55 PM Care Teams Process Checker Relationship Specialty Start Date End Date No, Physician PCP - General 08/24/21
--- OUTSIDE RECORDS SUMMARY | 2025-03-13 03:17 | XMS_ITS | Clinical Summary ---
Author Organization [facility] Address [address] [place] [address] Care Team Providers Care Plug Cutter Name Role Phone Lebron Tanner MD Primary Care Provider [phone] Source Comments [facility] [employer],non-owned Affiliates and Associated Physician Practices is amultiple site organization consisting of ambulatory clinics and hospital sitesin [place], [place], [place] and [place]. This disclosure is being madepursuant to the Care Everywhere program and may not contain all information available regarding this patient. Last updated 18.[facility] [employer] Allergies No known active allergies Medications * Be aware that medications may not be up to date on this document. Alwaysverify current medications with the patient. acetaminophen (TYLENOL) 160 MG/5ML suspension Take 20 mL by mouth every 4 hours as needed for Fever or Pain. 240 mL 1 06/18/2011 Active hydrocodone-acet aminophen solution (LORTAB) 7.5-500 MG/15ML solution Take 5-10 mL by mouth every 6 hours as needed for Pain. 120 mL 0 06/18/2011 Active Social History Tobacco Use Types Packs/Day Years Used Date Smoking Tobacco: Never Assessed Sex and Gender Information Value Date Recorded Sex Assigned at Not on file Legal Sex Male 12:39 PM [employer] Gender Identity Not on file Sexual Orientation Not on file Last Filed Vital Signs Vital Sign Reading Time Taken Comments Blood Pressure 129/80 06/18/2011 4:30 PM CDT Pulse 90 06/18/2011 4:30 PM CDT Temperature 37.6 C (99.7 F) 06/18/2011 11:49 AM CDT Respiratory Rate 24 06/18/2011 4:30 PM CDT Oxygen Saturation 100% 06/18/2011 4:30 PM CDT Inhaled Oxygen Concentration - - Weight 57 kg (125 lb 10.6 oz) 06/18/2011 11:49 A M CDT Height - - Body Mass Index - - Plan of Treatment Health Maintenance Due Date Last Done Comments HIV SCREENING 2012 HEPATITIS C SCREENING 02/25/2015 DTAP/TDAP/TD VACCINES (1 - Tdap) 2016 HEPATITIS B VACCINE (1 of 3 - 19+ 3-dose series) 2016 HPV VACCINE (1 - 3-dose SCDM series) 2024 COVID-19 VACCINE (1 - 2023-2 5 season) 2024 DEPRESSION SCREENING 08/27/2024 INFLUENZA VACCINE (#1) 2025 ZOSTER VACCINE (1 of 2) 2047 HIB VACCINE Aged Out No longer eligi ble based on patient's age to complete this topic MENINGOCOCCAL (Group B) VACC INE SHARED DECISION-MAKING Aged Out No longer eligibl e based on patient's age to complete this topic MENINGOCOCCAL GROUPS A/C/Y/W VACCINE Aged Out No longer eligible b ased on patient's age to complete this topic PNEUMOCOCCAL VACCINE Aged Out No long er eligible based on patient's age to complete this topic Care Teams Plug Cutter Relationship Specialty Start Date End Date Lebron Tanner MD [address] [address] PCP - General 06/18/11
--- OUTSIDE RECORDS SUMMARY | 2025-03-13 03:18 | XMS_ITS | Referral Summary ---
Author Organization [facility] Address [address] [place] [id number] Care Team Providers Care Faculty Member Name Role Phone No, Physician Primary Care Provider [phone] Encounters Date Type Department Care Team Description 02/14/2025 1:19 PM CDT - 02/14/2025 4:16 PM CDT Emergency [address] [address] Discharge Disposition: Left without being seen 02/11/[address] [address] Pricila Basilio RN 02/10/2025 3:19 PM CDT - 02/10/2025 4:46 PM CDT Emergency [address] [address] Discharge Disposition: Left Against Medical Advice 02/05/2025 10:54 AM CDT - 02/06/2025 10:55 AM CDT Hospital Encounter [address] [address] Martin Potts MD Smith, Jose Johnson MD Alcohol abuse with withdrawal without complication (HCC) (Primary Dx); Sinus tachycardia Discharge Disposition: Left Against Medical Advice from Last 3 Months Allergies No known active allergies Medications No known medications Active Problems Problem Noted Date Diagnosed Date Alcohol abuse with withdrawal without complicati on 02/05/2025 Alcohol withdrawal syndrome without complication 01/28/2024 Atrial fibrillation with RVR 08/24/2021 Alcohol abuse Social History Tobacco Use Types Packs/Day Years Used Date Smoking Tobacco: Never Smokeless Tobacco: Never Tobacco Cessation:Counseling Given: Not Answered Alcohol Use Standard Drinks/Week Comments Yes 6 (1 standard drink = 0.6 oz pur e alcohol) [facility] Utilities Answer Date Recorded In the past [...] often do you attend chur ch or sikh services? 1 to 4 times per year 02/06/2025 Do you belong to any clubs o r organizations such as scientology groups, unions, fraternal or athletic groups, or [...] any time in the past 12 m [facility], were you homeless or living in a group home (including now)? No 02/06/2025 Personal Safety Answer Date Recorded Have you ever been in or are you currently in a harmful physical or emotional relationship or is someone making you feel afraid or unsafe? 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 T: Report ID: [id number] Reading Location: [place] [address] Procedure Note Freedom Thomas, DO - 02/14/2025 [...] by Freedom Thomas M.D. T: Report ID: [id number] Reading Location: [place] [address] Tess STERLING IMG XR PROCEDURES Final Resul t * Troponin T high-sensitivity series (baseline, 2hr, 4hr, 6hr) (02/14/2025 1:44 PM CDT) Trop T hs <6 <=22 ng/L Comment: Interpretive Data For further hscTnT resources including the diagnostic algorithm and an aid in interpretation, copy and paste this link: https://nrl.testcatalog.org/show/hsTrop Current Interpretive Data last revised 2020. Blood 02/14/2025 1:44 PM CDT 02/14/2025 1:48 PM CDT Tess STERLING LAB BLOOD ORDERABLES [facility] [address] [facility] [place] [address] * eGFR (02/14/2025 1:44 PM CDT) eGFR >90 >=60 mL/min/1. 73 m2 [...] STERLING LAB BLOOD ORDERABLES Final Re sult [facility] [address] [facility] [place] [address] * (ABNORMAL) Differential, auto (02/14/2025 1:44 PM CDT) Neutrophil abs 4.12 1.50 - 6.50 K/cumm Imm gran abs 0.01 0.00 - 0.10 K/cumm [facility] Lymphocyte abs 0.68(L) 0.80 - 3.30 K/cumm [facility] Monocyte abs 0.45 0.20 - 0.80 K/cumm [facility] Eosinophil abs 0.02 0.00 - 0.50 K/cumm [facility] Basophil abs 0.05 0.00 - 0.10 K/cumm [facility] Neutrophil pct 77.3 % [facility] Comment: Interpretive Data Percent cell count reference ranges are not reported, since discordance with absolute values may lead to misinterpretation of CBC data. Current Interpretive Data was last revised on 2017. Imm gran pct 0.2 % [facility] Comment: Interpretive Data Percent cell count reference ranges are not reported, since discordance with absolute values may lead to misinterpretation of CBC data. Current Interpretive Data was last revised on 2017. Lymphocyte pct 12.8 % [facility] Comment: Interpretive Data Percent cell count reference ranges are not reported, since discordance with absolute values may lead to misinterpretation of CBC data. Current Interpretive Data was last revised on 2017. Monocyte pct 8.4 % [facility] Comment: Interpretive Data Percent cell count reference ranges are not reported, since discordance with absolute values may lead to misinterpretation of CBC data. Current Interpretive Data was last revised on 2017. Eosinophil pct 0.4 % [facility] Comment: Interpretive Data Percent cell count reference ranges are not reported, since discordance with absolute values may lead to misinterpretation of CBC data. Current Interpretive Data was last revised on 2017. Basophil pct 0.9 % [facility] Comment: Interpretive Data Percent cell count reference ranges are not reported, since discordance with absolute values may lead to misinterpretation of CBC data. Current Interpretive Data was last revised on 2017. Blood 02/14/2025 1:44 PM CDT 02/14/2025 1:48 PM CDT Tess STERLING LAB BLOOD ORDERABLES Final Re sult [facility] [address] [facility] [place] [address] * (ABNORMAL) CBC with auto differential (02/14/2025 1:44 PM CDT) WBC 5.33 3.80 - 9.90 K/cumm Hgb 17.0 13.0 - 17.5 g/dL [facility] Hct 48.9 38.9 - 50.3 % [facility] Plt 198 150 - 400 K/cumm [facility] MPV 8.9(L) 9.1 - 12.3 fL [facility] RBC 5.83(H) 4.30 - 5.80 M/cumm [facility] MCV 83.9 81.3 - 96.4 fL [facility] MCH 29.2 27.1 - 33.3 pg [facility] MCHC 34.8 32.3 - 35.7 g/dL [facility] RDW CV 13.0 11.1 - 14.9 % [facility] RDW SD 39.0 35.7 - 48.1 fL [facility] NRBC abs 0.00 0.00 - 0.01 K/cumm [facility] Blood Venous blood specimen / Unknown 02/14/2025 1:44 PM CDT 02/14/2025 1:48 PM CDT Tess STERLING LAB BLOOD ORDERABLES Final Re sult [facility] [address] [facility] [place] [address] * (ABNORMAL) Comprehensive metabolic panel (02/14/2025 1:44 PM CDT) Sodium 139 135 - 145 mmol/L Potassium, pl 4.0 3.3 - 4.9 mmol/L [facility] Comment:Hemolyzed; Potassium value may be falsely elevated by as much as 1.0 mmol/L. Suggest redraw and reanalysis. Chloride 98 97 - 110 mmol/L [facility] CO2 21(L) 22 - 32 mmol/L [facility] Anion gap 20(H) 2 - 15 mmol/L [facility] BUN 7 6 - 25 mg/dL [facility] Creatinine 0.63(L) 0.80 - 1.30 mg/dL [facility] Glucose 100 70 - 199 mg/dL [facility] Comment: Interpretive Data Fasting glucose >/= 126 [...] 2022. Calcium 9.8 8.5 - 10.3 mg/dL [facility] Bilirubin, total 0.7 0.1 - 1.2 mg/dL [facility] Protein, pl 8.6(H) 6.5 - 8.5 g/dL [facility] Albumin 5.0 3.5 - 5.0 g/dL [facility] Alk phos 86 40 - 130 Units/L [facility] ALT 238(H) 7 - 55 Units/L [facility] AST 203(H) 10 - 50 Units/L [facility] Comment:Hemolyzed; result ma y be falsely elevated Blood 02/14/2025 1:44 PM CDT 02/14/2025 1:48 PM CDT Tess STERLING LAB BLOOD ORDERABLES Final Re sult [facility] [address] [facility] [place] [address] * ECG 12 lead (02/14/2025 1:26 PM CDT) Ventricular Rate EKG/Min 117 BPM [facility] Atrial Rate 117 BPM [facility] HI-Interval (MSEC) 126 ms [facility] QRS-Interval (MSEC) 78 ms [facility] QT-Interval (MSEC) 308 ms [facility] QTc 429 ms [facility] P Hammond 51 degrees [facility] R Hammond 39 degrees [facility] T Hammond 59 degrees [facility] Diagnosis Sinus tachycardia Otherwise normal ECG When compared with ECG of 05-FEB-2025 14:14, No significant change was found Confirmed by AMANDA MCCRACKEN M.D. ([id number]) on 02/16/2025 9:13:41 AM [facility] 02/14/2025 1:26 PM CDT 02/16/2025 9:13 AM CDT Tess STERLING ECG ORDERABLES Final Result Performing Organization Address [facility]/ZIP Co de Phone Number [facility] * eGFR (02/06/2025 2:36 AM CDT) eGFR >90 >=60 mL/min/1. 73 [...] 2:36 AM CDT 02/06/2025 3:00 AM CDT Melaniematthew Guzman CIVIL DRAFTER LAB BLOOD ORDERABLES Final R esult Performing Organization Address [facility] Co de Phone Number CARMELLA [address] [place] [address] * CBC without differential (02/06/2025 2:36 AM CDT) WBC 7.53 3.80 - 9.90 K/cumm Hgb 15.2 13.0 - 17.5 g/dL [facility] Hct 43.2 38.9 - 50.3 % [facility] Plt 193 150 - 400 K/cumm [facility] MPV 9.3 9.1 - 12.3 fL [facility] RBC 5.00 4.30 - 5.80 M/cumm [facility] MCV 86.4 81.3 - 96.4 fL [facility] MCH 30.4 27.1 - 33.3 pg [facility] MCHC 35.2 32.3 - 35.7 g/dL [facility] RDW CV 12.6 11.1 - 14.9 % [facility] RDW SD 39.5 35.7 - 48.1 fL [facility] NRBC abs 0.00 0.00 - 0.01 K/cumm [facility] Blood 02/06/2025 2:36 AM CDT 02/06/2025 3:00 AM CDT Melanie Megan CIVIL DRAFTER LAB BLOOD ORDERABLES Final R esult Performing Organization Address [facility] Co de Phone Number CARME[facility]A [address] [place] [address] * (ABNORMAL) Basic metabolic panel (02/06/2025 2:36 AM CDT) Sodium 137 135 - 145 mmol/L Potassium, pl 4.2 3.3 - 4.9 mmol/L [facility] Chloride 99 97 - 110 mmol/L [facility] CO2 27 22 - 32 mmol/L [facility] Anion gap 11 2 - 15 mmol/L [facility] BUN 10 6 - 25 mg/dL [facility] Creatinine 0.70(L) 0.80 - 1.30 mg/dL [facility] Glucose 89 70 - 199 mg/dL [facility] Comment: Interpretive Data Fasting glucose >/= 126 [...] 2022. Calcium 9.2 8.5 - 10.3 mg/dL [facility] Blood 02/06/2025 2:36 AM CDT 02/06/2025 3:00 AM CDT Melanie Guzman NP LAB BLOOD ORDERABLES Final R esult [facility] [address] [facility] [place] [address] * D-dimer, quantitative (02/05/2025 2:31 PM CDT) [...] 68, VTE cut-off 680 ng/ml FEU. References; Schouten HT et al. Brit Med J. 2013;346:f2492. Consuelo et al. Annals Int Med. 2015;163:701-11. Current interpretive data was last revised on 2019. Blood 02/05/2025 2:31 PM CDT 02/05/2025 2:33 PM CDT us Martin Potts MD LAB BLOOD ORDERABLE S Final Result Performing Organization Address [facility]/ZIP Co de Phone Number [facility] [address] [facility] [place] [address] * ECG 12 lead (02/05/2025 2:14 PM CDT) Ventricular Rate EKG/Min 143 BPM [facility] Atrial Rate 143 BPM [facility] HI-Interval (MSEC) 122 ms [facility] QRS-Interval (MSEC) 78 ms [facility] QT-Interval (MSEC) 290 ms [facility] QTc 447 ms [facility] P Hammond 47 degrees [facility] R Hammond -6 degrees [facility] T Hammond 72 degrees [facility] Diagnosis Sinus tachycardia Otherwise normal ECG When compared with ECG of 05-FEB-2025 10:40, Rate has increased Confirmed by RUSSEL DON M.D. ([id number]) on 02/09/2025 11:46:12 AM [facility] 02/05/2025 2:14 PM CDT 02/09/2025 11:46 AM CDT us Martin Potts MD ECG ORDERABLES Fin al Result Performing Organization Address [facility]/ZIP Co de Phone Number [facility] * Troponin T high-sensitivity 2-hour (02/05/2025 12:32 PM CDT) Trop T hs <6 <=22 ng/L Comment: Interpretive Data For further hscTnT resources including the diagnostic algorithm and an aid in interpretation, copy and paste this link: https://nrl.testcatalog.org/show/hsTrop Current Interpretive Data last revised 2020. Trop T hs delta 0 ng/L [facility] Trop T hs interp Insignificant [facility] Blood 02/05/2025 12:3 2 PM CDT 02/05/2025 12:36 PM CDT us Martin Potts MD LAB BLOOD ORDERABLE S Final Result Performing Organization Address [facility]/ZIP Co de Phone Number [address] [place] [address] * Thyroid Function Morrison (02/05/2025 12:32 PM CDT) [facility] TSH 1.71 0.30 - 4.20 mcIUnit/mL Blood 02/05/2025 12:3 2 PM CDT 02/05/2025 12:36 PM CDT Melanie Megan CIVIL DRAFTER LAB BLOOD ORDERABLES Final R esult Performing Organization Address [facility] Co de Phone Number [address] [place] [address] * Lipase (02/05/2025 12:32 PM CDT) [facility] Lipase 42 10 - 99 Units/L Blood 02/05/2025 12:3 2 PM CDT 02/05/2025 12:36 PM CDT [facility] Megan CIVIL DRAFTER LAB BLOOD ORDERABLES Final R esult Performing Organization Address [facility] Co de Phone Number [address] [place] [address] * Troponin T high-sensitivity series (baseline, 2hr, 4hr, 6hr) (02/05/2025 10:53 AM CDT) [facility] Trop T hs <6 <=22 ng/L Comment: Interpretive Data For further hscTnT resources including the diagnostic algorithm and an aid in interpretation, copy and paste this link: https://nrl.testcatalog.org/show/hsTrop Current Interpretive Data last revised 2020. Blood 02/05/2025 10:5 3 AM CDT 02/05/2025 10:57 AM CDT us Martin Potts MD LAB BLOOD ORDERABLE S Final Result Performing Organization Address [facility] Co de Phone Number CARME[facility]A [address] [place] [address] * eGFR (02/05/2025 10:53 AM CDT) eGFR [...] MD LAB BLOOD ORDERABLES Final Resul t Performing Organization Address [facility]/ZIP Co de Phone Number CARME[facility]A [address] [place] [address] * Differential, auto (02/05/2025 10:53 AM CDT) Neutrophil abs 5.05 1.50 - 6.50 K/cumm Imm gran abs 0.02 0.00 - 0.10 K/cumm [facility] Lymphocyte abs 1.20 0.80 - 3.30 K/cumm [facility] Monocyte abs 0.48 0.20 - 0.80 K/cumm [facility] Eosinophil abs 0.03 0.00 - 0.50 K/cumm [facility] Basophil abs 0.04 0.00 - 0.10 K/cumm [facility] Neutrophil pct 74.1 % [facility] Comment: Interpretive Data Percent cell count reference ranges are not reported, since discordance with absolute values may lead to misinterpretation of CBC data. Current Interpretive Data was last revised on 2017. Imm gran pct 0.3 % [facility] Comment: Interpretive Data Percent cell count reference ranges are not reported, since discordance with absolute values may lead to misinterpretation of CBC data. Current Interpretive Data was last revised on 2017. Lymphocyte pct 17.6 % [facility] Comment: Interpretive Data Percent cell count reference ranges are not reported, since discordance with absolute values may lead to misinterpretation of CBC data. Current Interpretive Data was last revised on 2017. Monocyte pct 7.0 % [facility] Comment: Interpretive Data Percent cell count reference ranges are not reported, since discordance with absolute values may lead to misinterpretation of CBC data. Current Interpretive Data was last revised on 2017. Eosinophil pct 0.4 % [facility] Comment: Interpretive Data Percent cell count reference ranges are not reported, since discordance with absolute values may lead to misinterpretation of CBC data. Current Interpretive Data was last revised on 2017. Basophil pct 0.6 % [facility] Comment: Interpretive Data Percent cell count reference ranges are not reported, since discordance with absolute values may lead to misinterpretation of CBC data. Current Interpretive Data was last revised on 2017. Blood 02/05/2025 10:5 3 AM CDT 02/05/2025 10:57 AM CDT us Martin Chacorta Potts MD LAB BLOOD ORDERABLE S Final Result [facility] [address] [place] [address] * Pro B-type natriuretic peptide (02/05/2025 10:53 [...] ORDERABLE S Final Result Performing Organization Address [facility]/ZIP Co de Phone Number [facility]MELLA H[facility] [place] [address] * (ABNORMAL) Urinalysis reflex to microscopic and culture Urine (02/05/2025 10:53 AM CDT) Pathologist [facility] Color, ur Straw Yellow Clarity, ur Clear Clear [facility] Specific gravity, ur 1.005 1.003 - 1.030 [facility] pH, urine 5.5 [facility] Comment: Interpretive Data U rine pH is affected by diet, medications, systemic acid-base disturbances, and renal tubular function. pH may affect urinary stone formation. For example, urine pH below 6.0 may help reduce the tendency for calcium phosphate stones and pH greater than 6.0 may reduce the tendency for uric acid stone formation. Source: [facility] Current Interpretive Data was last revised on 2017 Protein, ur ql 1+(A) Negative [facility] Glucose, ur ql Negative Negative [facility] Ketones, ur 1+(A) Negative [facility] Bilirubin, ur Negative Negative [facility] Blood, ur Negative Negative [facility] Urobilinogen, ur <2.0 <2.0 mg/dL [facility] Nitrite, ur Negative Negative [facility] Leukocyte esterase, ur Negative Negative [facility] UA reflex comment Reflex to microscopic UA will be performed. [facility] Urine 02/05/2025 10:5 3 AM CDT 02/05/2025 10:57 AM CDT Martin Potts MD LAB MICROBIOLOGY - GENERAL ORDERABLES Final Result [facility]A [facility] [address] [facility] [place] [address] * (ABNORMAL) CBC with auto differential (02/05/2025 10:53 AM CDT) Pathologist [facility] WBC 6.82 3.80 - 9.90 K/cumm Hgb 17.3 13.0 - 17.5 g/dL [facility] Hct 49.7 38.9 - 50.3 % [facility] Plt 240 150 - 400 K/cumm [facility] MPV 8.7(L) 9.1 - 12.3 fL [facility] RBC 5.83(H) 4.30 - 5.80 M/cumm [facility] MCV 85.2 81.3 - 96.4 fL [facility] MCH 29.7 27.1 - 33.3 pg [facility] MCHC 34.8 32.3 - 35.7 g/dL [facility] RDW CV 12.9 11.1 - 14.9 % [facility] RDW SD 40.0 35.7 - 48.1 fL [facility] NRBC abs 0.00 0.00 - 0.01 K/cumm [facility] Blood 02/05/2025 10:5 3 AM CDT 02/05/2025 10:57 AM CDT us Martin Potts MD LAB BLOOD ORDERABLE S Final Result [facility] [address] [facility] [place] [address] * Drugs of Abuse Screen, Urine without Confirmation (02/05/2025 10:53 AM CDT) Amphetamine, ur Not Detected CutOff 500ng/mL Comment: Interpretive Data - Amphetamines: Samples containing greater than 500 ng/mL d-methamphetamine or other cross-reacting amphetamine compounds are reported as positive. Amphetamine immunoassays are subject to significant false positive rates due to cross-reactivity of non-amphetamine drugs. Confirmatory testing required for definitive results. Current Interpretive Data was last reviewed 2023. Barbiturates, ur Not Detected CutOff 200ng/mL [facility] Comment: Interpretive Data - Barbiturates: Samples containing greater than 200 ng/mL secobarbital or other cross-reacting barbiturate compounds are reported as positive. False positive and false negative results are possible. Confirmatory testing required for definitive results. Current Interpretive Data was last reviewed 2023. Benzodiazepines, ur Not Detected CutOff 100ng/mL [facility] Comment: Interpretive Data - Benzodiazepines: Samples containing greater than 100 ng/mL nordiazepam or other cross-reacting compounds are reported as positive. False positive and false negative results are possible. Confirmatory testing required for definitive results. Current Interpretive Data was last reviewed 2023. Cannabinoids, ur Not Detected CutOff 50 ng/mL [facility] Comment: Interpretive Data - Cannabinoids: Samples containing greater than 50 ng/mL delta-9 THC -COOH or other cross- reacting compounds are reported as positive. False positive and false negative results are possible. Confirmatory testing required for definitive results. Current Interpretive Data was last reviewed 2023. Cocaine, ur Not Detected CutOff 150ng/mL [facility] Comment: Interpretive Data - Cocaine: Samples containing greater than 150 ng/mL benzoylecgonine or other cross- reacting compounds are reported as positive. False positive and false negative results are possible. Confirmatory testing required for definitive results. Current Interpretive Data was last reviewed 2023. Fentanyl, Ur Not Detected CutOff 5 ng/mL [facility] Comment: Interpretive Data - Fentanyl: Samples containing greater than 5 ng/mL norfentanyl, fentanyl, or other cross-reacting fentanyl compounds are reported as positive. False positive and false negative results are possible. Confirmatory testing required for definitive results. Current Interpretive Data was last reviewed 2023. Methadone, ur Not Detected CutOff 300ng/mL [facility] Comment: Interpretive Data - Methadone: Samples containing greater than 300 ng/mL d,l-methadone or other cross-reacting compounds are reported as positive. False positive and false negative results are possible. Confirmatory testing required for definitive results. Current Interpretive Data was last reviewed 2023. Opiates, ur Not Detected CutOff 300ng/mL [facility] Comment: Interpretive Data - Opiates: Samples containing greater than 300 ng/mL morphine or other cross-reacting compounds are reported as positive. False positive and false negative results are possible. Confirmatory testing required for definitive results. Current Interpretive Data was last reviewed 2023. Oxycodone, ur Not Detected CutOff 100ng/mL [facility] Comment: Interpretive Data - Oxycodone: Samples containing greater than 100 ng/mL oxycodone or other cross-reacting compounds are reported as positive. False positive and false negative results are possible. Confirmatory testing required for definitive results. Current Interpretive Data was last reviewed 2023. Phencyclidine, ur Not Detected CutOff 25 ng/mL [facility] Comment: Interpretive Data - Phencyclidine: Samples containing [...] AM CDT 02/05/2025 10:56 AM CDT Narrative [facility] [facility] - 02/05/2025 11:25 AM CDT Drug of Abuse screening is performed by immunoassay for medical purposes only. This is not to be used for Pain Management purposes. Martin Potts MD LAB URINE ORDERABLE S Final Result Performing Organization Address [facility] Co de Phone Number CARMELLA [address] [place] [address] * Urinalysis, microscopic only (02/05/2025 10:53 AM CDT) WBC, ur 0-5 0 - 5 /HPF RBC, ur 0-2 0 - 2 /HPF CARMELLA Culture Reflex Comment Reflex conditions for urine culture (WBC >10) not met. CARMELLA Urine 02/05/2025 10:5 3 AM CDT 02/05/2025 10:57 AM CDT Martin Potts MD LAB URINE ORDERABLE S Final Result Performing Organization Address City/[facility] Co de Phone Number [address] [employer] [place], [place] [id number] * Magnesium (02/05/2025 10:53 AM CDT) Magnesium 2.1 1.4 - 2.5 mg/dL Blood 02/05/2025 10:5 3 AM CDT 02/05/2025 10:57 AM CDT Mratin Potts MD LAB BLOOD ORDERABLE S Final Result Performing Organization Address [facility] de Phone Number CARMELLA [address] [address] * (ABNORMAL) Ethanol (02/05/2025 10:53 AM CDT) Pathologist [facility] Ethanol 142(H) <=10 mg/dL Comment: Interpretive Data Legal limit of intoxication > or = 80 mg/dL Levels > or = 400 mg/dL are potentially TOXIC. Current interpretive data was last revised on 2018. Blood 02/05/2025 10:5 3 AM CDT 02/05/2025 10:57 AM CDT Martin Potts MD LAB BLOOD ORDERABLE S Final Result Performing Organization Address [facility] de Phone Number CARMELLA [address] [address] * (ABNORMAL) Comprehensive metabolic panel (02/05/2025 10:53 AM CDT) [facility] Sodium 132(L) 135 - 145 mmol/L Potassium, pl 4.1 3.3 - 4.9 mmol/L [facility] Chloride 92(L) 97 - 110 mmol/L [facility] CO2 22 22 - 32 mmol/L [facility] Anion gap 18(H) 2 - 15 mmol/L [facility] BUN 6 6 - 25 mg/dL [facility] Creatinine 0.58(L) 0.80 - 1.30 mg/dL [facility] Glucose 99 70 - 199 mg/dL [facility] Comment: Interpretive Data Fasting glucose >/= 126 [...] 2022. Calcium 9.0 8.5 - 10.3 mg/dL [facility] Bilirubin, total 0.5 0.1 - 1.2 mg/dL [facility] Protein, pl 8.1 6.5 - 8.5 g/dL [facility] Albumin 4.7 3.5 - 5.0 g/dL [facility] Alk phos 79 40 - 130 Units/L [facility] ALT 92(H) 7 - 55 Units/L [facility] AST 111(H) 10 - 50 Units/L [facility] Blood 02/05/2025 10:5 3 AM CDT 02/05/2025 10:57 AM CDT us Martin Potts MD LAB BLOOD ORDERABLE S Final Result Performing Organization Address [facility] de Phone Number [facility] [address] [place] [address] * ECG 12 lead (02/05/2025 10:40 AM CDT) Pathologist [facility] Ventricular Rate EKG/Min 99 BPM [facility] Atrial Rate 99 BPM [facility] HI-Interval (MSEC) 130 ms [facility] QRS-Interval (MSEC) 78 ms [facility] QT-Interval (MSEC) 340 ms [facility] QTc 436 ms [facility] P [place] 44 degrees [facility] R [place] 36 degrees [facility] T [place] 62 degrees [facility] Diagnosis Normal sinus rhythm Normal ECG When compared with ECG of 28-JAN-2024 11:14, No significant change was found Confirmed by RUSSEL DON M.D. ([id number]) on 02/09/2025 11:36:08 AM [facility] 02/05/2025 10:4 0 AM CDT 02/09/2025 11:36 AM CDT us Martin Potts MD ECG ORDERABLES Fin al Result Performing Organization Address [facility] Co de Phone Number [facility] * Hepatitis panel, acute Blood (01/29/2024 4:59 AM CDT) Hep A IgM Nonreactive Nonreactive Comment: Interpretive Data: If Hep A IgM Ab is reported as Equivocal, a new sample should be drawn in two weeks for testing. Current interpretive data was last revised on 19. Hep B core IgM Nonreactive Nonreactive [facility] Comment: Interpretive Data If HepB Core IgM Ab is reported as Equivocal, a new sample should be drawn in two weeks for testing. Current interpretive data was last revised on 19. Hep C Ab Nonreactive Nonreactive [facility] Comment: Antibodies to HCV not detected. Does [...] last revised on 2019. HepBsAg Nonreactive Nonreactive [facility] Blood 01/29/2024 4:59 AM CDT 01/29/2024 5:09 AM CDT Santana Chaudhry MD LAB MICROBIOLOGY - [facility] ORDERABLES Final Result Performing Organization Address City/[facility]/ZIP Co de Phone Number [facility] [address] [place] [address] from Last 3 Months or Most Recently Relevant to Health Maintenance Insurance [employer] [facility] PPO [facility] PPO * Guarantor: Matt Forman Account Type Relation to Patient Date of Phone Billing Address Personal/Family Self [id number] [place] [address] [facility] PPO Advance Directives For more information, please contact: [phone] * Full Code (Latest Code Status on File) Date Activated Date Inactivated Comments 02/05/2025 4:29 PM 02/06/2025 3:10 PM * Full Code Date Activated Date Inactivated Comments 01/28/2024 5:53 PM 01/29/2024 4:04 PM * Full Code Date Activated Date Inactivated Comments 08/25/2021 9:18 AM 08/25/2021 4:55 PM Care Teams Faculty Member Relationship Specialty Start Date End Date No, Physician PCP - General 08/24/21
--- NOTE | 2025-03-13 03:33 | ECG_ITS ---
Test Date: 2025-03-13 03:40:22 Measurements Intervals [place] Rate: 90 P: 11 IA: 108 QRS: 56 QRSD: 95 T: 77 QT: 347 QTc: 427 Interpretive Statements SINUS RHYTHM WITH SHORT IA INTERVAL NORMAL ELECTROCARDIOGRAM Compared to ECG 02/14/2025 17:06:13 NO SIGNIFICANT DIFFERENCE Electronically Signed On 03-13-2025 07:50:04 CDT by Freedom Aguiar M.D.
[2025-03-13 04:07] VITALS: BP 134/89; PULSE 91; RESP 23; O2SAT 99
[2025-03-13 04:39] LABS: INR 0.9; Prothrombin Time 11.9 Seconds (11.1-14.7)
[2025-03-13 04:40] LABS: Partial Thromboplastin Time 29.1 Seconds (22.3-36.8)
--- NOTE | 2025-03-13 04:46 | ED.ALCOHOL ---
HPI - Alcohol General Chief Complaint: Alcohol Stated Complaint: Alcohol Withdrawl Time Seen by Provider: 03/13/25 04:35 History of Present Illness HPI narrative: 30-year-old male with a history of alcohol abuse presenting to the emergency department for concerns of alcohol withdrawal. He states his last drink was 1 hour ago. Drinks approximately 12 beers per day. States whenever he gets tremulous at home and feels hot and sweaty he takes alcohol and this comes down his sensations. He is interested in stopping drinking. States that he is about to lose his job because he drinks too much. Has been here recently for alcohol withdrawal and was prescribed Librium which he did take and felt much improved but had a relapse. No trauma or injury. Denies any nausea, vomiting, abdominal pain, back pain, chest pain presently. Was otherwise in his normal state of health. Denies any other substance use. Related Data Allergies Allergy/AdvReac Type Severity Reaction Status Date / Time No Known Allergies Allergy Verified 03/13/25 03:16 Review of Systems Review of Systems: As reviewed above in HPI [facility] Past Medical History Medical History History of atrial fibrillation Social History Social History Alcohol intake: current Exam Narrative: GENERAL: [Well-appearing, well-nourished, and in no acute distress.] HEAD: [Normocephalic, atraumatic.] EYES: [PERRLA and EOMI.] ENT: Nares clear, no rhinorrhea or epistaxis. Mucous membranes moist. NECK: Supple. CHEST: [Clear to auscultation. No respiratory distress.] HEART: [Regular rate and rhythm]. No murmur heard. [Normal peripheral pulses.] ABDOMEN: [Soft, nondistended], [nontender], [No rigidity or guarding] EXTREMITIES: Normal range of motion. [No edema.] SKIN: Warm, dry, no rash. NEURO: [No focal deficits]. Alert and oriented [x3.] PSYCH: [Normal mood and affect.] Course Vital Signs Vital signs: Vital Signs Temperature 36.3 C L 03/13/25 03:16 Pulse Rate 108 H 03/13/25 03:16 Respiratory Rate 16 03/13/25 03:16 Blood Pressure 135/100 H 03/13/25 03:16 Pulse Oximetry 97 03/13/25 03:16 Oxygen Delivery Room Air 03/13/25 03:16 Temperature 36.3 C L 03/13/25 03:16 Pulse Rate 83 03/13/25 06:07 Respiratory Rate 22 H 03/13/25 06:07 Blood Pressure 118/77 03/13/25 06:07 Pulse Oximetry 97 03/13/25 06:07 Oxygen Delivery Room Air 03/13/25 04:07 MDM - Alcohol MDM Narrative Medical decision making narrative: 30-year-old male with a history of alcohol abuse presenting to the emergency department for concerns of alcohol withdrawal. He states his last drink was 1 hour ago. Drinks approximately 12 beers per day. States whenever he gets tremulous at home and feels hot and sweaty he takes alcohol and this comes down his sensations. He is interested in stopping drinking. States that he is about to lose his job because he drinks too much. Has been here recently for alcohol withdrawal and was prescribed Librium which he did take and felt much improved but had a relapse. No trauma or injury. Denies any nausea, vomiting, abdominal pain, back pain, chest pain presently. Was otherwise in his normal state of health. Denies any other substance use. Patient is clinically sober at this time, not appearing intoxicated, normal vital signs with any tachycardia, fever, hypoxia, blood pressure elevations. Given his drink was 1 hour prior to arrival unlikely that he is actually going through alcohol withdrawal but he does have a history of alcohol dependence. Laboratory studies were drawn including alcohol level, CBC, CMP, troponin, EKG and chest x-ray were obtained. He was given a banana bag for fluid rehydration and electrolytes. Placed on retail security professional and re-evaluated. Is interested in starting Librium once again and upon discharge will get a prescription. Patient's workup shows no leukocytosis or anemia. Normal platelet count. Electrolytes her largely normal with normal sodium chloride and potassium. Mildly elevated anion gap and no acidosis. Likely secondary from alcoholic ketoacidosis and starvation ketosis. Normal glucose, LFTs chronically elevated, troponin negative. Normal lipase. Alcohol level elevated 257. Patient has no clinical signs or symptoms withdrawn he is alcohol intoxicated at this time. Patient received fluid hydration and electrolyte replenishment. Patient is interested in getting a prescription for Librium when he verónica up to prevent withdrawals and this was provided on discharge. Patient has a sober local delivery driver that can take him home at this time and clinically he is well-appearing and does not appear intoxicated, able to ambulate without any difficulty. Patient given return precautions and discharge instructions. Medical Records Attestation: I reviewed the patient's medical records. Lab Data Attestation: I reviewed the patient's lab results. 03/13/25 04:12 03/13/25 04:12 Labs: Lab Results 03/13/25 Range/Units 04:12 WBC 7.7 (4.5-10.0) K/mm3 RBC 5.88 (4.6-6.20) M/mm3 Hgb 17.6 (14.0-18.0) g/dL Hct 50.3 (42.0-52.0) % MCV 85.5 (80-100) fl MCH 29.9 (26-34) pg MCHC 35.0 (32-36) g/dl RDW 13.1 (11.5-14.5) % Plt Count 203 (150-375) k/mm3 MPV 9.5 (7.4-10.4) fl Immature Gran % (Auto) 0.1 (0-0.5) % Neut % (Auto) 62.9 (45.5-73.1) % Lymph % (Auto) 26.9 (18.3-44.2) % [place] % (Auto) 8.2 (2.6-8.5) % Eos % (Auto) 0.9 (0-4.4) % Baso % (Auto) 1.0 (0.2-1.2) % Lymph # (Auto) 2.07 (0.9-3.2) K/mm3 [place] # (Auto) 0.6 (0.1-0.6) K/mm3 Eos # (Auto) 0.1 (0-0.3) K/mm3 Baso # (Auto) 0.1 (0.0-0.1) K/mm3 Abs Immat Gran (auto) 0.01 (0.00-0.031) K/mm3 Absolute Neuts (auto) 4.8 (1.3-6.7) K/mm3 Absolute Nucleated RBC 0.000 (0.0-0.012) K/mm3 Nucleated RBC % 0.0 (0.0-0.2) % PT 11.9 (11.1-14.7) Seconds INR 0.9 APTT 29.1 (22.3-36.8) Seconds Sodium 142 (137-145) mmol/L Potassium 4.0 (3.4-5.0) mmol/L Chloride 103 (98-107) mmol/L Carbon Dioxide 21 L (22-30) mmol/L Anion Gap 18 H (4-12) mmol/L BUN 5 L (9-20) mg/dL Creatinine 0.65 L (0.7-1.3) mg/dL Estim Creat Clear Calc 140 ml/min Estimated GFR > 60 (59 - ) Glucose 107 (65-110) mg/dL Calcium 9.6 (8.4-10.2) mg/dL Total Bilirubin 0.5 (0.2-1.3) mg/dL AST 162 H (17-59) U/L ALT 162 H (6-50) U/L Alkaline Phosphatase 112 (38-126) U/L Troponin I < 0.012 (0.000-0.034) ng/mL Total Protein 8.8 H (6.3-8.2) g/dL Albumin 5.0 (3.5-5.1) g/dL Lipase 291 (23-300) U/L Ethyl Alcohol 257 (<10) mg/dL Imaging Data Attestation: I personally reviewed and interpreted this imaging study as follows: My impression: Impressions Chest X-Ray 03/13/25 05:48 Impression: Normal chest. Radiologist's impression: ITS Impressions Chest X-Ray 03/13/25 05:48 Impression: Normal chest. Discharge Plan Discharge Clinical Impression: Alcoholic intoxication Patient Disposition: Home Condition: Stable Instructions: Antibiotic Form Additional Instructions: Your alcohol level is elevated today and you are not going through withdrawal but you do have a higher propensity for alcohol withdrawal so we will prescribe you Librium to take but he cannot drink on this medication as it can cause profound sedation and health issues. Take the medication only if you plan on stopping drinking entirely. Return with any new or worsening/emergent concerns at any time. Patient Language: Nicaraguan Prescriptions: New chlordiazepoxide HCl 25 mg capsule See Rx Instructions .Route .COMPLEX Qty: 20 0RF Rx Instructions: 50mg of chlordiazepoxide every 8 hours for two days, then decrease to 25mg every 8 hours for another two days followed by 25mg as needed No Action chlordiazepoxide HCl 25 mg capsule See Rx Instructions .ROUTE .COMPLEX PRN (Reason: alcohol withdrawal) Qty: 20 0RF Rx Instructions: Day 1, 50mg every 6 hours. Day 2, 50mg every 8 hours. Day 3, 50mg every 12 hours. Day 4, 25mg every 12 hours, then discontinue. pantoprazole 40 mg tablet,delayed release (DR/EC) 40 mg PO HS 28 Days Qty: 28 0RF chlordiazepoxide HCl 25 mg capsule See Rx Instructions .ROUTE .COMPLEX PRN (Reason: alcohol withdrawal) Qty: 20 0RF Rx Instructions: 25mg dose; Day 1, 50mg every 6 hours. Day 2, 50mg every 8 hours. Day 3, 50mg every 12 hours. Day 4, 25mg every 12 hours, then discontinue. Follow-up/Referrals: PHYSICIAN,MERCHANDISE DIRECTOR [Primary Care Provider] - Time of Disposition: 06:38
[2025-03-13 04:48] LABS: Alanine Aminotransferase 162 U/L (6-50); Albumin Level 5.0 g/dL (3.5-5.1); Alkaline Phosphatase 112 U/L (38-126); Anion Gap 18 mmol/L (4-12); Aspartate Amino Transferase 162 U/L (17-59); Bilirubin,Total 0.5 mg/dL (0.2-1.3); Blood Urea Nitrogen 5 mg/dL (9-20); Calcium 9.6 mg/dL (8.4-10.2); Carbon Dioxide 21 mmol/L (22-30); Chloride 103 mmol/L (98-107); Estimated CRCL calculation 140 ml/min; Estimated Glomerular Filt Rate > 60; Glucose 107 mg/dL (65-110); Lipase 291 U/L (23-300); Potassium 4.0 mmol/L (3.4-5.0); Sodium 142 mmol/L (137-145); Total Protein 8.8 g/dL (6.3-8.2)
[2025-03-13 04:49] LABS: Hematocrit 50.3 % (42.0-52.0); Hemoglobin 17.6 g/dL (14.0-18.0); Immature Granulocyte Percent A 0.1 % (0-0.5); Lymphocytes Absolute Auto 2.07 K/mm3 (0.9-3.2); Mean Corpuscular HGB Conc 35.0 g/dl (32-36); Mean Corpuscular Hemoglobin 29.9 pg (26-34); Mean Corpuscular Volume 85.5 fl (80-100); Nucleated Red Blood Cells Absolute Auto 0.000 K/mm3 (0.0-0.012); Nucleated Red Blood Cells Perc 0.0 % (0.0-0.2); Platelet Count Result 203 k/mm3 (150-375); Red Blood Count 5.88 M/mm3 (4.6-6.20); White Blood Count 7.7 K/mm3 (4.5-10.0)
[2025-03-13 04:59] LABS: Troponin I < 0.012 ng/mL (0.000-0.034)
--- OUTSIDE RECORDS SUMMARY | 2025-03-13 05:07 | XMS_ITS | Clinical Summary ---
Author Organization [facility] Address [address] [place] [address] Care Team Providers Care Manager Fitness Name Role Phone Lebron Tanner MD Primary Care Provider [phone] Source Comments [facility],non-owned Affiliates and Associated Physician Practices is amultiple site organization consisting of ambulatory clinics and hospital sitesin [place], [place], [place] and [place]. This disclosure is being madepursuant to the Care Everywhere program and may not contain all information available regarding this patient. Last updated 18.[facility] Allergies No known active allergies Medications * [...] on file Legal Sex Male 12:39 PM [employer] Gender Identity Not on file Sexual Orientation [...] age to complete this topic Care Teams Manager Fitness Relationship Specialty Start Date End Date Lebron Tanner MD [address] [address] PCP - General 06/18/11
--- OUTSIDE RECORDS SUMMARY | 2025-03-13 05:07 | XMS_ITS | Referral Summary ---
Author Organization [facility] Address [address] [place] [id number] Care Team Providers Care Group Marketing Vp Name Role Phone No, Physician Primary Care Provider [phone] Encounters Date Type Department Care Team Description 02/14/2025 1:19 PM CDT - 02/14/2025 4:16 PM CDT Emergency [address] [address] Discharge Disposition: Left without being seen 02/11/[address] [address] Pricila Basilio RN 02/10/2025 3:19 PM CDT - 02/10/2025 4:46 PM CDT Emergency [address] [address] Discharge Disposition: Left Against Medical Advice 02/05/2025 10:54 AM CDT - 02/06/2025 10:55 AM CDT Hospital Encounter [address] [address] Martin Potts MD Smith, Jose Johnson MD [...] drink = 0.6 oz pur e alcohol) [facility] Utilities Answer Date Recorded In the past [...] often do you attend chur ch or taoist services? 1 to 4 times per year 02/06/2025 Do you belong to any clubs o r organizations such as buddhist groups, unions, fraternal or athletic groups, or [...] any time in the past 12 [facility], were you homeless or living in a detention (including now)? No 02/06/2025 Personal Safety Answer Date Recorded Have you ever been in or are you currently in a harmful physical or emotional relationship or is someone making you feel afraid or unsafe? 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 T: Report ID: [id number] Reading Location: [place] [address] Procedure Note Freedom Thomas, DO - 02/14/2025 [...] by Freedom Thomas M.D. T: Report ID: [id number] Reading Location: [place] [address] Tess STERLING IMG XR PROCEDURES Final Resul [...] [facility]ERLING LAB BLOOD ORDERABLES [facility] [address] [facility] [place] [address] * eGFR (02/14/2025 1:44 PM [...] STERLING LAB BLOOD ORDERABLES Final Re sult [facility] [address] [facility] [place] [address] * (ABNORMAL) Differential, auto (02/14/2025 1:44 PM CDT) Neutrophil abs 4.12 1.50 - 6.50 K/cumm Imm gran abs 0.01 0.00 - 0.10 K/cumm [facility] Lymphocyte abs 0.68(L) 0.80 - 3.30 K/cumm [facility] Monocyte abs 0.45 0.20 - 0.80 K/cumm [facility] Eosinophil abs 0.02 0.00 - 0.50 K/cumm [facility] Basophil abs 0.05 0.00 - 0.10 K/cumm [facility] Neutrophil pct 77.3 % [facility] Comment: Interpretive Data Percent cell count reference ranges are not reported, since discordance with absolute values may lead to misinterpretation of CBC data. Current Interpretive Data was last revised on 2017. Imm gran pct 0.2 % [facility] Comment: Interpretive Data Percent cell count reference ranges are not reported, since discordance with absolute values may lead to misinterpretation of CBC data. Current Interpretive Data was last revised on 2017. Lymphocyte pct 12.8 % [facility] Comment: Interpretive Data Percent cell count reference ranges are not reported, since discordance with absolute values may lead to misinterpretation of CBC data. Current Interpretive Data was last revised on 2017. Monocyte pct 8.4 % [facility] Comment: Interpretive Data Percent cell count reference ranges are not reported, since discordance with absolute values may lead to misinterpretation of CBC data. Current Interpretive Data was last revised on 2017. Eosinophil pct 0.4 % [facility] Comment: Interpretive Data Percent cell count reference ranges are not reported, since discordance with absolute values may lead to misinterpretation of CBC data. Current Interpretive Data was last revised on 2017. Basophil pct 0.9 % [facility] Comment: Interpretive Data Percent cell count reference ranges are not reported, since discordance with absolute values may lead to misinterpretation of CBC data. Current Interpretive Data was last revised on 2017. Blood 02/14/2025 1:44 PM CDT 02/14/2025 1:48 PM CDT Tess STERLING LAB BLOOD ORDERABLES Final Re sult [facility] [address] [facility] Department [place] [address] * (ABNORMAL) CBC with auto differential (02/14/2025 1:44 PM CDT) WBC 5.33 3.80 - 9.90 K/cumm Hgb 17.0 13.0 - 17.5 g/dL [facility] Hct 48.9 38.9 - 50.3 % [facility] Plt 198 150 - 400 K/cumm [facility] MPV 8.9(L) 9.1 - 12.3 fL [facility] RBC 5.83(H) 4.30 - 5.80 M/cumm [facility] MCV 83.9 81.3 - 96.4 fL [facility] MCH 29.2 27.1 - 33.3 pg [facility] MCHC 34.8 32.3 - 35.7 g/dL [facility] RDW CV 13.0 11.1 - 14.9 % [facility] RDW SD 39.0 35.7 - 48.1 fL [facility] NRBC abs 0.00 0.00 - 0.01 K/cumm [facility] Blood Venous blood specimen / Unknown 02/14/2025 1:44 PM CDT 02/14/2025 1:48 PM CDT Tess STERLING LAB BLOOD ORDERABLES Final Re sult [facility] [address] [facility] [place] [address] * (ABNORMAL) Comprehensive metabolic panel (02/14/2025 1:44 PM CDT) Sodium 139 135 - 145 mmol/L Potassium, pl 4.0 3.3 - 4.9 mmol/L [facility] Comment:Hemolyzed; Potassium value may be falsely elevated by as much as 1.0 mmol/L. Suggest redraw and reanalysis. Chloride 98 97 - 110 mmol/L [facility] CO2 21(L) 22 - 32 mmol/L [facility] Anion gap 20(H) 2 - 15 mmol/L [facility] BUN 7 6 - 25 mg/dL [facility] Creatinine 0.63(L) 0.80 - 1.30 mg/dL [facility] Glucose 100 70 - 199 mg/dL [facility] Comment: Interpretive Data Fasting glucose >/= 126 [...] 2022. Calcium 9.8 8.5 - 10.3 mg/dL [facility] Bilirubin, total 0.7 0.1 - 1.2 mg/dL [facility] Protein, pl 8.6(H) 6.5 - 8.5 g/dL [facility] Albumin 5.0 3.5 - 5.0 g/dL [facility] Alk phos 86 40 - 130 Units/L [facility] ALT 238(H) 7 - 55 Units/L [facility] AST 203(H) 10 - 50 Units/L [facility] Comment:Hemolyzed; result ma y be falsely elevated Blood 02/14/2025 1:44 PM CDT 02/14/2025 1:48 PM CDT Tess STERLING LAB BLOOD ORDERABLES Final Re sult [facility] [address] [facility] [place] [address] * ECG 12 lead (02/14/2025 1:26 PM CDT) Ventricular Rate EKG/Min 117 BPM [facility] Atrial Rate 117 BPM [facility] DE-Interval (MSEC) 126 ms [facility] QRS-Interval (MSEC) 78 ms [facility] QT-Interval (MSEC) 308 ms [facility] QTc 429 ms [facility] P [place] 51 degrees [facility] R [place] 39 degrees [facility] T [place] 59 degrees [facility] Diagnosis Sinus tachycardia Otherwise normal ECG When compared with ECG of 05-FEB-2025 14:14, No significant change was found Confirmed by AMANDA MCCRACKEN M.D. ([id number]) on 02/16/2025 9:13:41 AM [facility] 02/14/2025 1:26 PM CDT 02/16/2025 9:13 AM CDT Tess STERLING ECG ORDERABLES Final Result Performing Organization Address [facility]/ZIP Co de Phone Number [facility] * eGFR (02/06/2025 2:36 AM CDT) eGFR [...] CDT 02/06/2025 3:00 AM CDT Melaniematthew Guzman WOMEN'S ACTIVITIES ADVISER LAB BLOOD ORDERABLES Final R esult Performing Organization Address [facility] Co de Phone Number CARMELLA [address] [place] [address] * CBC without differential (02/06/2025 2:36 AM CDT) WBC 7.53 3.80 - 9.90 K/cumm Hgb 15.2 13.0 - 17.5 g/dL [facility] Hct 43.2 38.9 - 50.3 % [facility] Plt 193 150 - 400 K/cumm [facility] MPV 9.3 9.1 - 12.3 fL [facility] RBC 5.00 4.30 - 5.80 M/cumm [facility] MCV 86.4 81.3 - 96.4 fL [facility] MCH 30.4 27.1 - 33.3 pg [facility] MCHC 35.2 32.3 - 35.7 g/dL [facility] RDW CV 12.6 11.1 - 14.9 % [facility] RDW SD 39.5 35.7 - 48.1 fL [facility] NRBC abs 0.00 0.00 - 0.01 K/cumm [facility] Blood 02/06/2025 2:36 AM CDT 02/06/2025 3:00 AM CDT Melanie Megan WOMEN'S ACTIVITIES ADVISER LAB BLOOD ORDERABLES Final R esult Performing Organization Address City/[facility] Co de Phone Number CAR[facility]LLA [address] [place] [address] * (ABNORMAL) Basic metabolic panel (02/06/2025 2:36 AM CDT) Sodium 137 135 - 145 mmol/L Potassium, pl 4.2 3.3 - 4.9 mmol/L [facility] Chloride 99 97 - 110 mmol/L [facility] CO2 27 22 - 32 mmol/L [facility] Anion gap 11 2 - 15 mmol/L [facility] BUN 10 6 - 25 mg/dL [facility] Creatinine 0.70(L) 0.80 - 1.30 mg/dL [facility] Glucose 89 70 - 199 mg/dL [facility] Comment: Interpretive Data Fasting glucose >/= 126 [...] 2022. Calcium 9.2 8.5 - 10.3 mg/dL [facility] Blood 02/06/2025 2:36 AM CDT 02/06/2025 3:00 AM CDT Melanie Guzman NP LAB BLOOD ORDERABLES Final R esult [facility] [address] [facility] [place] [address] * D-dimer, quantitative (02/05/2025 2:31 PM CDT) [...] ORDERABLE S Final Result Performing Organization Address City/[facility]/ZIP Co de Phone Number [facility]A [address] [facility] [place] [address] * ECG 12 lead (02/05/2025 2:14 PM CDT) Ventricular Rate EKG/Min 143 BPM [facility] Atrial Rate 143 BPM [facility] DE-Interval (MSEC) 122 ms [facility] QRS-Interval (MSEC) 78 ms [facility] QT-Interval (MSEC) 290 ms [facility] QTc 447 ms [facility] P [place] 47 degrees [facility] R [place] -6 degrees [facility] T [place] 72 degrees [facility] Diagnosis Sinus tachycardia Otherwise normal ECG When compared with ECG of 05-FEB-2025 10:40, Rate has increased Confirmed by RUSSEL DON M.D. ([id number]) on 02/09/2025 11:46:12 AM [facility] 02/05/2025 2:14 PM CDT 02/09/2025 11:46 AM CDT us Martin Potts MD ECG ORDERABLES Fin al Result Performing Organization Address [facility]/ZIP Co de Phone Number [facility] * Troponin T high-sensitivity 2-hour (02/05/2025 12:32 [...] ORDERABLE S Final Result Performing Organization Address City/[facility]/ZIP Co de Phone Number [facility] [place] [address] * Thyroid Function Cassia (02/05/2025 12:32 PM CDT) [facility] TSH 1.71 0.30 - 4.20 mcIUnit/mL Blood 02/05/2025 12:3 2 PM CDT 02/05/2025 12:36 PM CDT Melanie Megan WOMEN'S ACTIVITIES ADVISER LAB BLOOD ORDERABLES Final R esult Performing Organization Address [facility] Co de Phone Number [address] [place] [address] * Lipase (02/05/2025 12:32 PM CDT) [facility] Lipase 42 10 - 99 Units/L Blood 02/05/2025 12:3 2 PM CDT 02/05/2025 12:36 PM CDT [facility] Megan WOMEN'S ACTIVITIES ADVISER LAB BLOOD ORDERABLES Final R esult Performing Organization Address [facility] Co de Phone Number [address] [place] [address] * Troponin T high-sensitivity series (baseline, 2hr, 4hr, 6hr) (02/05/2025 10:53 AM CDT) [facility] Trop T hs <6 <=22 ng/L Comment: Interpretive Data For further hscTnT resources including the diagnostic algorithm and an aid in interpretation, copy and paste this link: [email or web address].testcatalog.org/show/[email or web address] Current Interpretive Data last revised 2020. Blood 02/05/2025 10:5 3 AM CDT 02/05/2025 10:57 AM CDT us Martin Potts MD LAB BLOOD ORDERABLE S Final Result Performing Organization Address [facility] Co de Phone Number [facility]LLA [address] [place] [address] * eGFR (02/05/2025 10:53 AM CDT) eGFR [...] ORDERABLES Final Resul t Performing Organization Address City/[facility]/ZIP Co de Phone Number [facility]LLA [address] [place] [address] * Differential, auto (02/05/2025 10:53 AM CDT) Neutrophil abs 5.05 1.50 - 6.50 K/cumm Imm gran abs 0.02 0.00 - 0.10 K/cumm [facility] Lymphocyte abs 1.20 0.80 - 3.30 K/cumm [facility] Monocyte abs 0.48 0.20 - 0.80 K/cumm [facility] Eosinophil abs 0.03 0.00 - 0.50 K/cumm [facility] Basophil abs 0.04 0.00 - 0.10 K/cumm [facility] Neutrophil pct 74.1 % [facility] Comment: Interpretive Data Percent cell count reference ranges are not reported, since discordance with absolute values may lead to misinterpretation of CBC data. Current Interpretive Data was last revised on 2017. Imm gran pct 0.3 % [facility] Comment: Interpretive Data Percent cell count reference ranges are not reported, since discordance with absolute values may lead to misinterpretation of CBC data. Current Interpretive Data was last revised on 2017. Lymphocyte pct 17.6 % [facility] Comment: Interpretive Data Percent cell count reference ranges are not reported, since discordance with absolute values may lead to misinterpretation of CBC data. Current Interpretive Data was last revised on 2017. Monocyte pct 7.0 % [facility] Comment: Interpretive Data Percent cell count reference ranges are not reported, since discordance with absolute values may lead to misinterpretation of CBC data. Current Interpretive Data was last revised on 2017. Eosinophil pct 0.4 % [facility] Comment: Interpretive Data Percent cell count reference ranges are not reported, since discordance with absolute values may lead to misinterpretation of CBC data. Current Interpretive Data was last revised on 2017. Basophil pct 0.6 % [facility] Comment: Interpretive Data Percent cell count reference ranges are not reported, since discordance with absolute values may lead to misinterpretation of CBC data. Current Interpretive Data was last revised on 2017. Blood 02/05/2025 10:5 3 AM CDT 02/05/2025 10:57 AM CDT us Martin Chacorta Potts MD LAB BLOOD ORDERABLE S Final Result [facility] [address] [place] [address] * Pro B-type natriuretic peptide (02/05/2025 10:53 [...] CDT 02/05/2025 10:57 AM CDT us Martin oPtts MD LAB BLOOD ORDERABLE S Final Result Performing Organization Address City/[facility]/ZIP Co de Phone Number [facility] [place] [address] * (ABNORMAL) Urinalysis reflex to microscopic and culture Urine (02/05/2025 10:53 AM CDT) Pathologist [facility] Color, ur Straw Yellow Clarity, ur Clear Clear [facility] Specific gravity, ur 1.005 1.003 - 1.030 [facility] pH, urine 5.5 [facility] Comment: Interpretive Data U rine pH is affected by diet, medications, systemic acid-base disturbances, and renal tubular function. pH may affect urinary stone formation. For example, urine pH below 6.0 may help reduce the tendency for calcium phosphate stones and pH greater than 6.0 may reduce the tendency for uric acid stone formation. Source: [facility] Current Interpretive Data was last revised on 2017 Protein, ur ql 1+(A) Negative [facility] Glucose, ur ql Negative Negative [facility] Ketones, ur 1+(A) Negative [facility] Bilirubin, ur Negative Negative [facility] Blood, ur Negative Negative [facility] Urobilinogen, ur <2.0 <2.0 mg/dL [facility] Nitrite, ur Negative Negative [facility] Leukocyte esterase, ur Negative Negative [facility] UA reflex comment Reflex to microscopic UA will be performed. [facility] Urine 02/05/2025 10:5 3 AM CDT 02/05/2025 10:57 AM CDT Martin Potts MD LAB MICROBIOLOGY - GENERAL ORDERABLES Final Result [facility] [address] [facility] [place] [address] * (ABNORMAL) CBC with auto differential (02/05/2025 10:53 AM CDT) Pathologist [facility] WBC 6.82 3.80 - 9.90 K/cumm Hgb 17.3 13.0 - 17.5 g/dL [facility] Hct 49.7 38.9 - 50.3 % [facility] Plt 240 150 - 400 K/cumm [facility] MPV 8.7(L) 9.1 - 12.3 fL [facility] RBC 5.83(H) 4.30 - 5.80 M/cumm [facility] MCV 85.2 81.3 - 96.4 fL [facility] MCH 29.7 27.1 - 33.3 pg [facility] MCHC 34.8 32.3 - 35.7 g/dL [facility] RDW CV 12.9 11.1 - 14.9 % [facility] RDW SD 40.0 35.7 - 48.1 fL [facility] NRBC abs 0.00 0.00 - 0.01 K/cumm [facility] Blood 02/05/2025 10:5 3 AM CDT 02/05/2025 10:57 AM CDT us Martin Potts MD LAB BLOOD ORDERABLE S Final Result [facility] [address] [facility] [place] [address] * Drugs of Abuse Screen, Urine without [...] 2023. Barbiturates, ur Not Detected CutOff 200ng/mL [facility] Comment: Interpretive Data - Barbiturates: Samples containing greater than 200 ng/mL secobarbital or other cross-reacting barbiturate compounds are reported as positive. False positive and false negative results are possible. Confirmatory testing required for definitive results. Current Interpretive Data was last reviewed 2023. Benzodiazepines, ur Not Detected CutOff 100ng/mL [facility] Comment: Interpretive Data - Benzodiazepines: Samples containing greater than 100 ng/mL nordiazepam or other cross-reacting compounds are reported as positive. False positive and false negative results are possible. Confirmatory testing required for definitive results. Current Interpretive Data was last reviewed 2023. Cannabinoids, ur Not Detected CutOff 50 ng/mL [facility] Comment: Interpretive Data - Cannabinoids: Samples containing greater than 50 ng/mL delta-9 THC -COOH or other cross- reacting compounds are reported as positive. False positive and false negative results are possible. Confirmatory testing required for definitive results. Current Interpretive Data was last reviewed 2023. Cocaine, ur Not Detected CutOff 150ng/mL [facility] Comment: Interpretive Data - Cocaine: Samples containing greater than 150 ng/mL benzoylecgonine or other cross- reacting compounds are reported as positive. False positive and false negative results are possible. Confirmatory testing required for definitive results. Current Interpretive Data was last reviewed 2023. Fentanyl, Ur Not Detected CutOff 5 ng/mL [facility] Comment: Interpretive Data - Fentanyl: Samples containing greater than 5 ng/mL norfentanyl, fentanyl, or other cross-reacting fentanyl compounds are reported as positive. False positive and false negative results are possible. Confirmatory testing required for definitive results. Current Interpretive Data was last reviewed 2023. Methadone, ur Not Detected CutOff 300ng/mL [facility] Comment: Interpretive Data - Methadone: Samples containing greater than 300 ng/mL d,l-methadone or other cross-reacting compounds are reported as positive. False positive and false negative results are possible. Confirmatory testing required for definitive results. Current Interpretive Data was last reviewed 2023. Opiates, ur Not Detected CutOff 300ng/mL [facility] Comment: Interpretive Data - Opiates: Samples containing greater than 300 ng/mL morphine or other cross-reacting compounds are reported as positive. False positive and false negative results are possible. Confirmatory testing required for definitive results. Current Interpretive Data was last reviewed 2023. Oxycodone, ur Not Detected CutOff 100ng/mL [facility] Comment: Interpretive Data - Oxycodone: Samples containing greater than 100 ng/mL oxycodone or other cross-reacting compounds are reported as positive. False positive and false negative results are possible. Confirmatory testing required for definitive results. Current Interpretive Data was last reviewed 2023. Phencyclidine, ur Not Detected CutOff 25 ng/mL [facility] Comment: Interpretive Data - Phencyclidine: Samples containing [...] AM CDT 02/05/2025 10:56 AM CDT Narrative [facility] - 02/05/2025 11:25 AM CDT Drug of Abuse screening is performed by immunoassay for medical purposes only. This is not to be used for Pain Management purposes. Martin Potts MD LAB URINE ORDERABLE S Final Result Performing Organization Address [facility] Co de Phone Number CARMELLA [address] [place] [address] * Urinalysis, microscopic only (02/05/2025 10:53 AM CDT) WBC, ur 0-5 0 - 5 /HPF RBC, ur 0-2 0 - 2 /HPF [facility] Culture Reflex Comment Reflex conditions for urine culture (WBC >10) not met. [facility] Urine 02/05/2025 10:5 3 AM CDT 02/05/2025 10:57 AM CDT Martin Potts MD LAB URINE ORDERABLE S Final Result Performing Organization Address City/[facility] Co de Phone Number [address] [place], [place] [id number] * Magnesium (02/05/2025 10:53 AM CDT) Magnesium 2.1 1.4 - 2.5 mg/dL Blood 02/05/2025 10:5 3 AM CDT 02/05/2025 10:57 AM CDT Martin Potts MD LAB BLOOD ORDERABLE S Final Result Performing Organization Address [facility] de Phone Number CARMELLA [address] [address] * (ABNORMAL) Ethanol (02/05/2025 10:53 AM CDT) Pathologist [facility] Ethanol 142(H) <=10 mg/dL Comment: Interpretive Data Legal limit of intoxication > or = 80 mg/dL Levels > or = 400 mg/dL are potentially TOXIC. Current interpretive data was last revised on 2018. Blood 02/05/2025 10:5 3 AM CDT 02/05/2025 10:57 AM CDT Martin Potts MD LAB BLOOD ORDERABLE S Final Result Performing Organization Address [facility] de Phone Number CARMELLA [address] [address] * (ABNORMAL) Comprehensive metabolic panel (02/05/2025 10:53 AM CDT) [facility] Sodium 132(L) 135 - 145 mmol/L Potassium, pl 4.1 3.3 - 4.9 mmol/L [facility] Chloride 92(L) 97 - 110 mmol/L [facility] CO2 22 22 - 32 mmol/L [facility] Anion gap 18(H) 2 - 15 mmol/L [facility] BUN 6 6 - 25 mg/dL [facility] Creatinine 0.58(L) 0.80 - 1.30 mg/dL [facility] Glucose 99 70 - 199 mg/dL [facility] Comment: Interpretive Data Fasting glucose >/= 126 [...] 2022. Calcium 9.0 8.5 - 10.3 mg/dL [facility] Bilirubin, total 0.5 0.1 - 1.2 mg/dL [facility] Protein, pl 8.1 6.5 - 8.5 g/dL [facility] Albumin 4.7 3.5 - 5.0 g/dL [facility] Alk phos 79 40 - 130 Units/L [facility] ALT 92(H) 7 - 55 Units/L [facility] AST 111(H) 10 - 50 Units/L [facility] Blood 02/05/2025 10:5 3 AM CDT 02/05/2025 10:57 AM CDT us Martin Potts MD LAB BLOOD ORDERABLE S Final Result Performing Organization Address [facility] de Phone Number [facility] [address] [facility] [place] [address] * ECG 12 lead (02/05/2025 10:40 AM CDT) Pathologist [facility] Ventricular Rate EKG/Min 99 BPM [facility] Atrial Rate 99 BPM [facility] DE-Interval (MSEC) 130 ms [facility] QRS-Interval (MSEC) 78 ms [facility] QT-Interval (MSEC) 340 ms [facility] QTc 436 ms [facility] P [place] 44 degrees [facility] R [place] 36 degrees [facility] T [place] 62 degrees [facility] Diagnosis Normal sinus rhythm Normal ECG When compared with ECG of 28-JAN-2024 11:14, No significant change was found Confirmed by RUSSEL DON M.D. ([id number]) on 02/09/2025 11:36:08 AM [facility] 02/05/2025 10:4 0 AM CDT 02/09/2025 11:36 AM CDT us Martin Potts MD ECG ORDERABLES Fin al Result Performing Organization Address [facility] Co de Phone Number [facility] * Hepatitis panel, acute Blood (01/29/2024 4:59 AM CDT) Hep A IgM Nonreactive Nonreactive Comment: Interpretive Data: If Hep A IgM Ab is reported as Equivocal, a new sample should be drawn in two weeks for testing. Current interpretive data was last revised on 19. Hep B core IgM Nonreactive [facility] Comment: Interpretive Data If HepB Core IgM Ab is reported as Equivocal, a new sample should be drawn in two weeks for testing. Current interpretive data was last revised on 19. Hep C Ab Nonreactive Nonreactive [facility] Comment: Antibodies to HCV not detected. Does [...] last revised on 2019. HepBsAg Nonreactive Nonreactive [facility] Blood 01/29/2024 4:59 AM CDT 01/29/2024 5:09 AM CDT Santana Chaudhry MD LAB MICROBIOLOGY - [facility] ORDERABLES Final Result Performing Organization Address City/[facility]/ZIP Co de Phone Number [facility] [phone] [place] [address] from Last 3 Months or Most Recently Relevant to Health Maintenance Insurance [employer] [facility] PPO [facility] PPO * Guarantor: Matt Forman Account Type Relation to Patient Date of Phone Billing Address Personal/Family Self 1995 [id number] [place] [address] [facility] PPO Advance Directives For more information, please contact: [phone] * Full Code (Latest Code Status on File) Date Activated Date Inactivated Comments 02/05/2025 4:29 PM 02/06/2025 3:10 PM * Full Code Date Activated Date Inactivated Comments 01/28/2024 5:53 PM 01/29/2024 4:04 PM * Full Code Date Activated Date Inactivated Comments 08/25/2021 9:18 AM 08/25/2021 4:55 PM [employer] Relationship Specialty Start Date End Date No, Physician PCP - General 08/24/21
--- OUTSIDE RECORDS SUMMARY | 2025-03-13 05:07 | XMS_ITS | Clinical Summary ---
Author Organization [facility] Address [address] [place] [id number] Care Team Providers Care Computational Theory Scientist Name Role Phone No, Physician Primary Care Provider [phone] Allergies No known active allergies Medications No known medications Active Problems Problem Noted Date Diagnosed Date Alcohol abuse with withdrawal without complicati on 02/05/2025 Alcohol withdrawal syndrome without complication 01/28/2024 Atrial fibrillation with RVR 08/24/2021 Alcohol abuse Encounters Date Type Department Care Team Description 02/14/2025 1:19 PM CDT - 02/14/2025 4:16 PM CDT Emergency [address] [address] Discharge Disposition: Left without being seen 02/11/[address] [address] Pricila Basilio RN 02/10/2025 3:19 PM CDT - 02/10/2025 4:46 PM CDT Emergency [address] [address] Discharge Disposition: Left Against Medical Advice 02/05/2025 10:54 AM CDT - 02/06/2025 10:55 AM CDT Hospital Encounter [address] [address] Martin Potts MD Smith, Jose Johnson MD [...] drink = 0.6 oz pur e alcohol) [facility] Utilities Answer Date Recorded In the [...] often do you attend chur ch or methodist services? 1 to 4 times per year 02/06/2025 Do you belong to any clubs o r organizations such as restorationist groups, unions, fraternal or athletic groups, or [...] any time in the past 12 [facility], were you homeless or living in a chcf (including now)? No 02/06/2025 Personal Safety Answer Date Recorded Have you ever been in or are you currently in a harmful physical or emotional relationship or is someone making you feel afraid or unsafe? 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 T: Report ID: [id number] Reading Location: [place] [address] Procedure Note Freedom Thomas, DO - 02/14/2025 [...] by Freedom Thomas M.D. T: Report ID: [id number] Reading Location: [place] [address] Tess STERLING IMG XR PROCEDURES Final Resul t * Troponin T high-sensitivity series (baseline, 2hr, 4hr, 6hr) (02/14/2025 1:44 PM CDT) [facility] Trop T hs <6 <=22 ng/L Comment: Interpretive Data For further hscTnT resources including the diagnostic algorithm and an aid in interpretation, copy and paste this link: https://nrl.testcatalog.org/show/hsTrop Current Interpretive Data last revised 2020. Blood 02/14/2025 1:44 PM CDT 02/14/2025 1:48 PM CDT Tess STERLING LAB BLOOD ORDERABLES Final Re sult CARMELLA [address] [facility] [place] [address] * eGFR (02/14/2025 1:44 PM CDT) [facility] eGFR >90 >=60 mL/min/1. 73 m2 [...] STERLING LAB BLOOD ORDERABLES Final Re sult [place] [address] [facility] Department [place] [address] * (ABNORMAL) Differential, auto (02/14/2025 1:44 PM CDT) Pathologist [facility] Neutrophil abs 4.12 1.50 - 6.50 K/cumm Imm gran abs 0.01 0.00 - 0.10 K/cumm [facility] Lymphocyte abs 0.68(L) 0.80 - 3.30 K/cumm [facility] Monocyte abs 0.45 0.20 - 0.80 K/cumm [facility] Eosinophil abs 0.02 0.00 - 0.50 K/cumm [facility] Basophil abs 0.05 0.00 - 0.10 K/cumm [facility] Neutrophil pct 77.3 % [facility] Comment: Interpretive Data Percent cell count reference [...] revised on 2017. Lymphocyte pct 12.8 % [facility] Comment: Interpretive Data Percent cell count reference ranges are not reported, since discordance with absolute values may lead to misinterpretation of CBC data. Current Interpretive Data was last revised on 2017. Monocyte pct 8.4 % [facility] Comment: Interpretive Data Percent cell count reference ranges are not reported, since discordance with absolute values may lead to misinterpretation of CBC data. Current Interpretive Data was last revised on 2017. Eosinophil pct 0.4 % [facility] Comment: Interpretive Data Percent cell count reference ranges are not reported, since discordance with absolute values may lead to misinterpretation of CBC data. Current Interpretive Data was last revised on 2017. Basophil pct 0.9 % [facility] Comment: Interpretive Data Percent cell count reference ranges are not reported, since discordance with absolute values may lead to misinterpretation of CBC data. Current Interpretive Data was last revised on 2017. Blood 02/14/2025 1:44 PM CDT 02/14/2025 1:48 PM CDT us Tess STERLING LAB BLOOD ORDERABLES Final Re sult [facility] [address] [facility] Department of Laboratories [place], [place] [id number] * (ABNORMAL) CBC with auto differential (02/14/2025 1:44 PM CDT) Pathologist [facility] WBC 5.33 3.80 - 9.90 K/cumm Hgb 17.0 13.0 - 17.5 g/dL [facility] Hct 48.9 38.9 - 50.3 % [facility] Plt 198 150 - 400 K/cumm [facility] MPV 8.9(L) 9.1 - 12.3 fL [facility] RBC 5.83(H) 4.30 - 5.80 M/cumm [facility] MCV 83.9 81.3 - 96.4 fL [facility] MCH 29.2 27.1 - 33.3 pg [facility] MCHC 34.8 32.3 - 35.7 g/dL [facility] RDW CV 13.0 11.1 - 14.9 % [facility] RDW SD 39.0 35.7 - 48.1 fL [facility] NRBC abs 0.00 0.00 - 0.01 K/cumm [facility] Blood Venous blood specimen / Unknown 02/14/2025 1:44 PM CDT 02/14/2025 1:48 PM CDT us Tess STERLING LAB BLOOD ORDERABLES Final Re sult [facility] [address] [facility] [place] [address] * (ABNORMAL) Comprehensive metabolic panel (02/14/2025 1:44 PM CDT) Sodium 139 135 - 145 mmol/L Potassium, pl 4.0 3.3 - 4.9 mmol/L [facility] Comment:Hemolyzed; Potassium value may be falsely elevated by as much as 1.0 mmol/L. Suggest redraw and reanalysis. Chloride 98 97 - 110 mmol/L [facility] CO2 21(L) 22 - 32 mmol/L [facility] Anion gap 20(H) 2 - 15 mmol/L [facility] BUN 7 6 - 25 mg/dL [facility] Creatinine 0.63(L) 0.80 - 1.30 mg/dL [facility] Glucose 100 70 - 199 mg/dL [facility] Comment: Interpretive Data Fasting glucose >/= 126 [...] 2022. Calcium 9.8 8.5 - 10.3 mg/dL [facility] Bilirubin, total 0.7 0.1 - 1.2 mg/dL [facility] Protein, pl 8.6(H) 6.5 - 8.5 g/dL [facility] Albumin 5.0 3.5 - 5.0 g/dL [facility] Alk phos 86 40 - 130 Units/L [facility] ALT 238(H) 7 - 55 Units/L [facility] AST 203(H) 10 - 50 Units/L [facility] Comment:Hemolyzed; result ma y be falsely elevated Blood 02/14/2025 1:44 PM CDT 02/14/2025 1:48 PM CDT Tess STERLING LAB BLOOD ORDERABLES Final Re sult Performing Organization Address City/[facility]/ZIP Co de Phone Number [facility] [place] [address] [facility] Department [place] [address] * ECG 12 lead (02/14/2025 1:26 PM CDT) Pathologist [facility] Ventricular Rate EKG/Min 117 BPM [facility] Atrial Rate 117 BPM [facility] AK-Interval (MSEC) 126 ms [facility] QRS-Interval (MSEC) 78 ms [facility] QT-Interval (MSEC) 308 ms [facility] QTc 429 ms [facility] P Stella 51 degrees [facility] R Stella 39 degrees [facility] T Stella 59 degrees [facility] Diagnosis Sinus tachycardia Otherwise normal ECG When compared with ECG of 05-FEB-2025 14:14, No significant change was found Confirmed by AMANDA MCCRACKEN M.D. ([id number]) on 02/16/2025 9:13:41 AM [facility] 02/14/2025 1:26 PM CDT 02/16/2025 9:13 AM CDT us Tess STERLING ECG ORDERABLES Final Result Performing Organization Address City/[facility]/ZIP Co de Phone Number [facility] * eGFR (02/06/2025 2:36 AM CDT) Pathologist [facility] eGFR >90 >=60 mL/min/1. 73 m2 Comment: [...] NP LAB BLOOD ORDERABLES Final R esult [facility] [address] [facility] [place] [address] * CBC without differential (02/06/2025 2:36 AM CDT) [facility] WBC 7.53 3.80 - 9.90 K/cumm Hgb 15.2 13.0 - 17.5 g/dL [facility] Hct 43.2 38.9 - 50.3 % [facility] Plt 193 150 - 400 K/cumm [facility] MPV 9.3 9.1 - 12.3 fL [facility] RBC 5.00 4.30 - 5.80 M/cumm [facility] MCV 86.4 81.3 - 96.4 fL [facility] MCH 30.4 27.1 - 33.3 pg [facility] MCHC 35.2 32.3 - 35.7 g/dL [facility] RDW CV 12.6 11.1 - 14.9 % [facility] RDW SD 39.5 35.7 - 48.1 fL [facility] NRBC abs 0.00 0.00 - 0.01 K/cumm [facility] Blood 02/06/2025 2:36 AM CDT 02/06/2025 3:00 AM CDT Melanie Guzman LAB BLOOD ORDERABLES Final R esult Performing Organization Address City/[facility] Co de Phone Number [facility] [address] [facility] Department [place] [address] * (ABNORMAL) Basic metabolic panel (02/06/2025 2:36 AM CDT) Pathologist [facility] Sodium 137 135 - 145 mmol/L Potassium, pl 4.2 3.3 - 4.9 mmol/L [facility] Chloride 99 97 - 110 mmol/L [facility] CO2 27 22 - 32 mmol/L [facility] Anion gap 11 2 - 15 mmol/L [facility] BUN 10 6 - 25 mg/dL [facility] Creatinine 0.70(L) 0.80 - 1.30 mg/dL [facility] Glucose 89 70 - 199 mg/dL [facility] Comment: Interpretive Data Fasting glucose >/= 126 [...] 2022. Calcium 9.2 8.5 - 10.3 mg/dL [facility] Blood 02/06/2025 2:36 AM CDT 02/06/2025 3:00 AM CDT Melanie Guzman NP LAB BLOOD ORDERABLES Final R esult Performing Organization Address City/[facility] Co de Phone Number CARMELLA [address] [place] [address] * D-dimer, quantitative (02/05/2025 2:31 PM CDT) [...] ORDERABLE S Final Result Performing Organization Address [facility] Co de Phone Number CARMELLA [address] [place] [address] * ECG 12 lead (02/05/2025 2:14 PM CDT) Ventricular Rate EKG/Min 143 BPM [facility] Atrial Rate 143 BPM [facility] AK-Interval (MSEC) 122 ms [facility] QRS-Interval (MSEC) 78 ms [facility] QT-Interval (MSEC) 290 ms [facility] QTc 447 ms [facility] P Stella 47 degrees [facility] R Stella -6 degrees [facility] T Stella 72 degrees [facility] Diagnosis Sinus tachycardia Otherwise normal ECG When compared with ECG of 05-FEB-2025 10:40, Rate has increased Confirmed by RUSSEL DON M.D. ([id number]) on 02/09/2025 11:46:12 AM [facility] 02/05/2025 2:14 PM CDT 02/09/2025 11:46 AM CDT us Martin Potts MD ECG ORDERABLES Fin al Result Performing Organization Address City/[facility]/ZIP Co de Phone Number [facility] * Troponin T high-sensitivity 2-hour (02/05/2025 12:32 PM CDT) Trop T hs <6 <=22 ng/L Comment: Interpretive Data For further hscTnT resources including the diagnostic algorithm and an aid in interpretation, copy and paste this link: https://nrl.testcatalog.org/show/hsTrop Current Interpretive Data last revised 2020. Trop T hs delta 0 ng/L [facility] T[facility] T hs interp Insignificant [facility] Blood 02/05/2025 12:3 2 PM CDT 02/05/2025 12:36 PM CDT us Martin Potts MD LAB BLOOD ORDERABLE S Final Result Performing Organization Address [facility] de Phone Number CARMELLA [address] [place] [address] * Thyroid Function [facility] (02/05/2025 12:32 PM CDT) TSH 1.71 0.30 - 4.20 mcIUnit/mL Blood 02/05/2025 12:3 2 PM CDT 02/05/2025 12:36 PM CDT Melanie Guzman NP LAB BLOOD ORDERABLES Final R esult Performing Organization Address [facility] Co de Phone Number CARMELLA [address] [place] [address] * Lipase (02/05/2025 12:32 PM CDT) Lipase 42 10 - 99 Units/L Blood 02/05/2025 12:3 2 PM CDT 02/05/2025 12:36 PM CDT Melanie Guzman NP LAB BLOOD ORDERABLES Final R esult Performing Organization Address [facility] Co de Phone Number CARMELLA [address] [place] [address] * Troponin T high-sensitivity series (baseline, 2hr, [...] ORDERABLE S Final Result Performing Organization Address [facility] Co de Phone Number CARMELLA [address] [place] [address] * eGFR (02/05/2025 10:53 AM CDT) eGFR [...] MD LAB BLOOD ORDERABLES Final Resul t [place] [address] [facility] [place] [address] * Differential, auto (02/05/2025 10:53 AM CDT) Neutrophil abs 5.05 1.50 - 6.50 K/cumm Imm gran abs 0.02 0.00 - 0.10 K/cumm [facility] Lymphocyte abs 1.20 0.80 - 3.30 K/cumm [facility] Monocyte abs 0.48 0.20 - 0.80 K/cumm [facility] Eosinophil abs 0.03 0.00 - 0.50 K/cumm [facility] Basophil abs 0.04 0.00 - 0.10 K/cumm [facility] Neutrophil pct 74.1 % [facility] Comment: Interpretive Data Percent cell count reference ranges are not reported, since discordance with absolute values may lead to misinterpretation of CBC data. Current Interpretive Data was last revised on 2017. Imm gran pct 0.3 % [facility] Comment: Interpretive Data Percent cell count reference ranges are not reported, since discordance with absolute values may lead to misinterpretation of CBC data. Current Interpretive Data was last revised on 2017. Lymphocyte pct 17.6 % [facility] Comment: Interpretive Data Percent cell count reference ranges are not reported, since discordance with absolute values may lead to misinterpretation of CBC data. Current Interpretive Data was last revised on 2017. Monocyte pct 7.0 % [facility] Comment: Interpretive Data Percent cell count reference [...] LAB BLOOD ORDERABLE S Final Result CARMELLA [address] [facility] [place] [address] * Pro B-type natriuretic peptide (02/05/2025 10:53 [...] LAB BLOOD ORDERABLE S Final Result CARMELLA [facility] [place] [address] * (ABNORMAL) Urinalysis reflex to microscopic and culture Urine (02/05/2025 10:53 AM CDT) Color, ur Straw Yellow Clarity, ur Clear Clear CARMELLA Specific gravity, ur 1.005 1.003 - 1.030 [facility] pH, urine 5.5 CARMELLA Comment: Interpretive Data U rine pH is affected by diet, medications, systemic acid-base disturbances, and renal tubular function. pH may affect urinary stone formation. For example, urine pH below 6.0 may help reduce the tendency for calcium phosphate stones and pH greater than 6.0 may reduce the tendency for uric acid stone formation. Source: [facility] Current Interpretive Data was last revised on 2017 Protein, ur ql 1+(A) Negative [facility] Glucose, ur ql Negative Negative [facility] Ketones, ur 1+(A) Negative [facility] Bilirubin, ur Negative Negative [facility] Blood, ur Negative Negative [facility] Urobilinogen, ur <2.0 <2.0 mg/dL [facility] Nitrite, ur Negative Negative [facility] Leukocyte esterase, ur Negative Negative [facility] UA reflex comment Reflex to microscopic UA will be performed. CARMELLA Urine 02/05/2025 10:5 3 AM CDT 02/05/2025 10:57 AM CDT us Martin Potts MD LAB MICROBIOLOGY - GENERAL ORDERABLES Final Result Performing Organization Address City/[facility] Co de Phone Number CARMELLA [address] [address] * (ABNORMAL) CBC with auto differential (02/05/2025 10:53 AM CDT) [facility] WBC 6.82 3.80 - 9.90 K/cumm Hgb 17.3 13.0 - 17.5 g/dL [facility] Hct 49.7 38.9 - 50.3 % [facility] Plt 240 150 - 400 K/cumm [facility] MPV 8.7(L) 9.1 - 12.3 fL [facility] RBC 5.83(H) 4.30 - 5.80 M/cumm [facility] MCV 85.2 81.3 - 96.4 fL [facility] MCH 29.7 27.1 - 33.3 pg [facility] MCHC 34.8 32.3 - 35.7 g/dL [facility] RDW CV 12.9 11.1 - 14.9 % [facility] RDW SD 40.0 35.7 - 48.1 fL [facility] NRBC abs 0.00 0.00 - 0.01 K/cumm [facility] Blood 02/05/2025 10:5 3 AM CDT 02/05/2025 10:57 AM CDT Martin Potts MD LAB BLOOD ORDERABLE S Final Result Performing Organization Address [facility] Co de Phone Number CARMELLA [address] [address] * Drugs of Abuse Screen, Urine without Confirmation (02/05/2025 10:53 AM CDT) [facility] Amphetamine, ur Not Detected CutOff 500ng/mL Comment: Interpretive Data - Amphetamines: Samples containing greater than 500 ng/mL d-methamphetamine or other cross-reacting amphetamine compounds are reported as positive. Amphetamine immunoassays are subject to significant false positive rates due to cross-reactivity of non-amphetamine drugs. Confirmatory testing required for definitive results. Current Interpretive Data was last reviewed 2023. Barbiturates, ur Not Detected CutOff 200ng/mL [facility] Comment: Interpretive Data - Barbiturates: Samples containing greater than 200 ng/mL secobarbital or other cross-reacting barbiturate compounds are reported as positive. False positive and false negative results are possible. Confirmatory testing required for definitive results. Current Interpretive Data was last reviewed 2023. Benzodiazepines, ur Not Detected CutOff 100ng/mL [facility] Comment: Interpretive Data - Benzodiazepines: Samples containing greater than 100 ng/mL nordiazepam or other cross-reacting compounds are reported as positive. False positive and false negative results are possible. Confirmatory testing required for definitive results. Current Interpretive Data was last reviewed 2023. Cannabinoids, ur Not Detected CutOff 50 ng/mL [facility] Comment: Interpretive Data - Cannabinoids: Samples containing greater than 50 ng/mL delta-9 THC -COOH or other cross- reacting compounds are reported as positive. False positive and false negative results are possible. Confirmatory testing required for definitive results. Current Interpretive Data was last reviewed 2023. Cocaine, ur Not Detected CutOff 150ng/mL [facility] Comment: Interpretive Data - Cocaine: Samples containing greater than 150 ng/mL benzoylecgonine or other cross- reacting compounds are reported as positive. False positive and false negative results are possible. Confirmatory testing required for definitive results. Current Interpretive Data was last reviewed 2023. Fentanyl, Ur Not Detected CutOff 5 ng/mL [facility] Comment: Interpretive Data - Fentanyl: Samples containing greater than 5 ng/mL norfentanyl, fentanyl, or other cross-reacting fentanyl compounds are reported as positive. False positive and false negative results are possible. Confirmatory testing required for definitive results. Current Interpretive Data was last reviewed 2023. Methadone, ur Not Detected CutOff 300ng/mL [facility] Comment: Interpretive Data - Methadone: Samples containing greater than 300 ng/mL d,l-methadone or other cross-reacting compounds are reported as positive. False positive and false negative results are possible. Confirmatory testing required for definitive results. Current Interpretive Data was last reviewed 2023. Opiates, ur Not Detected CutOff 300ng/mL [facility] Comment: Interpretive Data - Opiates: Samples containing [...] Phencyclidine, ur Not Detected CutOff 25 ng/mL [facility] [place] Comment: Interpretive Data - Phencyclidine: Samples containing [...] AM CDT 02/05/2025 10:56 AM CDT Narrative [facility] - 02/05/2025 11:25 AM CDT Drug of Abuse screening is performed by immunoassay for medical purposes only. This is not to be used for Pain Management purposes. Martin Potts MD LAB URINE ORDERABLE S Final Result CARMELLA [address] [facility] [place] [address] * Urinalysis, microscopic only (02/05/2025 10:53 AM CDT) WBC, ur 0-5 0 - 5 /HPF RBC, ur 0-2 0 - 2 /HPF [facility] Culture Reflex Comment Reflex conditions for urine culture (WBC >10) not met. CARMELLA Urine 02/05/2025 10:5 3 AM CDT 02/05/2025 10:57 AM CDT Martin Potts MD LAB URINE ORDERABLE S Final Result Performing Organization Address [facility] de Phone Number [address] [address] * Magnesium (02/05/2025 10:53 AM CDT) [facility] Magnesium 2.1 1.4 - 2.5 mg/dL Blood 02/05/2025 10:5 3 AM CDT 02/05/2025 10:57 AM CDT Martin Potts MD [facility] BLOOD ORDERABLE S Final Result Performing Organization Address [facility] Phone Number [address] [address] * (ABNORMAL) Ethanol (02/05/2025 10:53 AM CDT) [facility] Ethanol 142(H) <=10 mg/dL Comment: Interpretive Data Legal limit of intoxication > or = 80 mg/dL Levels > or = 400 mg/dL are potentially TOXIC. Current interpretive data was last revised on 2018. Blood 02/05/2025 10:5 3 AM CDT 02/05/2025 10:57 AM CDT Martin Potts MD LAB BLOOD ORDERABLE S Final Result Performing Organization Address [facility] de Phone Number [address] [address] * (ABNORMAL) Comprehensive metabolic panel (02/05/2025 10:53 AM CDT) [facility] Sodium 132(L) 135 - 145 mmol/L Potassium, pl 4.1 3.3 - 4.9 mmol/L [facility] Chloride 92(L) 97 - 110 mmol/L [facility] CO2 22 22 - 32 mmol/L [facility] Anion gap 18(H) 2 - 15 mmol/L [facility] BUN 6 6 - 25 mg/dL [facility] Creatinine 0.58(L) 0.80 - 1.30 mg/dL [facility] Glucose 99 70 - 199 mg/dL [facility] Comment: Interpretive Data Fasting glucose >/= 126 [...] 2022. Calcium 9.0 8.5 - 10.3 mg/dL [facility] Bilirubin, total 0.5 0.1 - 1.2 mg/dL [facility] Protein, pl 8.1 6.5 - 8.5 g/dL [facility] Albumin 4.7 3.5 - 5.0 g/dL [facility] Alk phos 79 40 - 130 Units/L [facility] ALT 92(H) 7 - 55 Units/L [facility] AST 111(H) 10 - 50 Units/L [facility] Blood 02/05/2025 10:5 3 AM CDT 02/05/2025 10:57 AM CDT Martin Potts MD LAB BLOOD ORDERABLE S Final Result [facility] [address] [facility] [place] [address] * ECG 12 lead (02/05/2025 10:40 AM CDT) Ventricular Rate EKG/Min 99 BPM [facility] Atrial Rate 99 BPM [facility] AK-Interval (MSEC) 130 ms [facility] QRS-Interval (MSEC) 78 ms [facility] QT-Interval (MSEC) 340 ms [facility] QTc 436 ms [facility] P [place]ella 44 degrees [facility] R Stella 36 degrees [facility] T Stella 62 degrees [facility] Diagnosis Normal sinus rhythm Normal ECG When compared with ECG of 28-JAN-2024 11:14, No significant change was found Confirmed by RUSSEL DON M.D. ([id number]) on 02/09/2025 11:36:08 AM [facility] 02/05/2025 10:4 0 AM CDT 02/09/2025 11:36 AM CDT Martin Potts MD ECG ORDERABLES Fin al Result [facility] * Hepatitis panel, acute Blood (01/29/2024 4:59 AM CDT) Hep A IgM Nonreactive Nonreactive Comment: Interpretive Data: If Hep A IgM Ab is reported as Equivocal, a new sample should be drawn in two weeks for testing. Current interpretive data was last revised on 19. Hep B core IgM Nonreactive Nonreactive [facility] Comment: Interpretive Data If HepB Core IgM Ab is reported as Equivocal, a new sample should be drawn in two weeks for testing. Current interpretive data was last revised on 19. Hep C Ab Nonreactive Nonreactive [facility] Comment: Antibodies to HCV not detected. Does [...] last revised on 2019. HepBsAg Nonreactive Nonreactive [facility] Blood 01/29/2024 4:59 AM CDT 01/29/2024 5:09 AM CDT us Santana Chaudhry MD LAB MICROBIOLOGY - GENE RAL ORDERABLES Final Result [facility] [address] [facility] [place] [address] from Last 3 Months or Most Recently Relevant to Health Maintenance Insurance [facility] PPO [facility] P[facility] * Guarantor: Matt Forman Account Type Relation to Patient Date of Phone Billing Address Personal/Family Self [id number] [place] [address] [facility] PPO Advance Directives For more information, please contact: [phone] * Full Code (Latest Code Status on File) Date Activated Date Inactivated Comments 02/05/2025 4:29 PM 02/06/2025 3:10 PM * Full Code Date Activated Date Inactivated Comments 01/28/2024 5:53 PM 01/29/2024 4:04 PM * Full Code Date Activated Date Inactivated Comments 08/25/2021 9:18 AM 08/25/2021 4:55 PM Care Teams Computational Theory Scientist Relationship Specialty Start Date End Date No, Physician PCP - General 08/24/21
[2025-03-13] MEDS: THIAMINE HCL INJ 100 MG, FOLIC ACID INJ 1 MG, MAGNESIUM SULFATE INJ 1 GM in LACTATED RI... 1000 MG IV CONT (05:15)
[2025-03-13 06:07] VITALS: BP 118/77; PULSE 83; RESP 22; O2SAT 97
[2025-03-13 06:49] VITALS: BP 118/77; PULSE 95; RESP 24; O2SAT 100
== END 2025-03-13 06:50 | disposition home or self-care (01) ==
PROVIDERS: Emergency Provider Student in an Organized Health Care Education/Training Program
DX: F10.229 Alcohol dependence with intoxication, unspecified (principal); Y90.8 Blood alcohol level of 240 mg/100 ml or more
CPT/HCPCS: 36415; 71046; 80053; 82077; 83690; 84484; 85025; 85610; 85730; 93005; 96365; 99284; J3411; J3475; J7120

== ENCOUNTER 2025-06-01 13:46 | Observation (INO) | payer SELFPAY ==
--- OUTSIDE RECORDS SUMMARY | 2025-05-30 20:05 | XMS_ITS | Encounter Summary ---
Author Organization [facility] Healthcare Address [address] [place] [id number] Care Team Providers Care Duster Tender Name Role Phone No, Physician Primary Care Provider [phone] Reason for Visit * Reason Comments Chest Pain Encounter Details Date Type Department Care Team ([facility] st Contact Info) Description 05/30/2025 8:05 PM CDT - 05/30/2025 9:02 PM CDT Emergency [address] [address] Discharge Disposition: Left Against Medical Advice Social History Tobacco Use Types Packs/Day Years Used Date Smoking Tobacco: Never Smokeless Tobacco: Never Alcohol Use Standard Drinks/Week Comments Yes 6 (1 standard drink = 0.6 oz pur e alcohol) [facility] Utilities Answer Date Recorded In the past 12 months has [employer] electric, gas, oil, or water company threatened to shut off services in your home? No 02/06/2025 Social Connection and Isolation Panel Answer Date Recorded In a typical week, how many times do you talk on the phone with family, friends, or neighbors? More than three times a week 02/06/2025 How often do you get togethe r with friends or relatives? More than three times a week 02/06/2025 How often do you attend chur ch or sabianism services? 1 to 4 times per year 02/06/2025 Do you belong to any clubs o r organizations such as cheondoism groups, unions, fraternal or athletic groups, or [...] any time in the past 12 m [facility], were you homeless or living in a care home (including now)? No 02/06/2025 Personal Safety Answer Date Recorded Have you ever been in or are you currently in a harmful physical or emotional relationship or is someone making you feel afraid or unsafe? Denies 05/30/2025 Sex and Gender Information Value Date Recorded Sex Assigned at Not on file Legal Sex Male 8:46 PM SCABBLER Gender Identity Male 08/26/2023 6:42 AM SCABBLER Sexual Orientation Not on file documented as of this encounter Last Filed Vital Signs Vital Sign Reading Time Taken Comments Blood Pressure 157/111 05/30/2025 8:09 PM CDT Pulse 131 05/30/2025 8:09 PM CDT Temperature 36.8 C (98.2 F) 05/30/2025 8:09 PM CDT Respiratory Rate 20 05/30/2025 8:09 PM CDT Oxygen Saturation 98% 05/30/2025 8:09 PM CDT Inhaled Oxygen Concentration - - Weight 77.1 kg (170 lb) 05/30/2025 8:09 PM CDT Height - - Body Mass Index 26.63 02/14/2025 2:59 PM CDT documented in this encounter Discharge Disposition Disposition Code Departure Means Destination Left Against Medical Advice documented in this encounter ED Notes * Renata Garcia RN - 05/30/2025 8:10 PM CDT Pt here with c/o 8/10 chest pain that has been present since yesterday, pt reports an aching sensation, pt states he has been drinking, last drink was about an hour ago, pt states he does drink beer and vodka daily, pt states he has had vomiting earlier at 1300, denies nausea, vomiting, dizziness, and sob. Pt states he is interested in detox, pt states he attempted to detox at home but he kept getting major headaches. Pt is c/o RESTREPO at this time. Pt has rash noted to both arms and abd, pt states it has been present for a while now. documented in this encounter Plan of Treatment Not on file documented as of this encounter Procedures Procedure Name Priority Date/Time Associated Diagnosis Comments TROPONIN T HIGH-SENSITIVITY SERIES (BASELINE, 2HR, 4HR, 6HR) STAT 05/30/2025 8:18 PM CDT EGFR STAT 05/30/2025 8:18 PM CDT DIFFERENTIAL AUTO STAT 05/30/2025 8:1 8 PM CDT CBC WITH AUTO DIFFERENTIAL STAT 05/30/2025 8:18 PM CDT ETHANOL STAT 05/30/2025 8:18 PM CDT COMPREHENSIVE METABOLIC PANEL STAT 05/30/2025 8:18 PM CDT ECG 12-LEAD STAT 05/30/2025 8:09 PM CDT documented in this encounter Results * eGFR (05/30/2025 8:18 PM CDT) Pathologist [facility] eGFR >90 >=60 mL/min/1. 73 m2 Comment: [...] interpretive data was last reviewed 2021. Blood 05/30/2025 8:18 PM CDT 05/30/2025 8:20 PM CDT Randy Sandoval MD LAB BLOOD ORDERABLES nal Result [facility] [address] [facility] Department [place] [address] * Differential, auto (05/30/2025 8:18 PM CDT) Pathologist [facility] Neutrophil abs 3.75 1.50 - 6.50 K/cumm Imm gran abs 0.02 0.00 - 0.10 K/cumm [facility] Lymphocyte abs 1.16 0.80 - 3.30 K/cumm [facility] Monocyte abs 0.35 0.20 - 0.80 K/cumm [facility] Eosinophil abs 0.01 0.00 - 0.50 K/cumm [facility] Basophil abs 0.07 0.00 - 0.10 K/cumm [facility] Neutrophil pct 70.0 % [facility] Comment: Interpretive Data Percent cell count reference ranges are not reported, since discordance with absolute values may lead to misinterpretation of CBC data. Current Interpretive Data was last revised on 2017. Imm gran pct 0.4 % [facility] Comment: Interpretive Data Percent cell count reference ranges are not reported, since discordance with absolute values may lead to misinterpretation of CBC data. Current Interpretive Data was last revised on 2017. Lymphocyte pct 21.6 % [facility] Comment: Interpretive Data Percent cell count reference ranges are not reported, since discordance with absolute values may lead to misinterpretation of CBC data. Current Interpretive Data was last revised on 2017. Monocyte pct 6.5 % [facility] Comment: Interpretive Data Percent cell count reference ranges are not reported, since discordance with absolute values may lead to misinterpretation of CBC data. Current Interpretive Data was last revised on 2017. Eosinophil pct 0.2 % [facility] Comment: Interpretive Data Percent cell count reference ranges are not reported, since discordance with absolute values may lead to misinterpretation of CBC data. Current Interpretive Data was last revised on 2017. Basophil pct 1.3 % [facility] Comment: Interpretive Data Percent cell count reference ranges are not reported, since discordance with absolute values may lead to misinterpretation of CBC data. Current Interpretive Data was last revised on 2017. Blood 05/30/2025 8:18 PM CDT 05/30/2025 8:20 PM CDT us Randy Sandoval MD LAB BLOOD ORDERABLES Fi nal Result [facility] [address] [facility] Department [place] [address] * (ABNORMAL) Ethanol (05/30/2025 8:18 PM CDT) Ethanol 356(H) <=10 mg/dL Comment: Interpretive Data Legal limit of intoxication > or = 80 mg/dL Levels > or = 400 mg/dL are potentially TOXIC. Current interpretive data was last revised on 2018. Blood 05/30/2025 8:18 PM CDT 05/30/2025 8:20 PM CDT Randy Sandoval MD LAB BLOOD ORDERABLES Fi nal Result Performing Organization Address [facility] de Phone Number [address] [address] * Troponin T high-sensitivity series (baseline, 2hr, 4hr, 6hr) (05/30/2025 8:18 PM CDT) [facility] Trop T hs <6 <=22 ng/L Comment: Interpretive Data For further hscTnT resources including the diagnostic algorithm and an aid in interpretation, copy and paste this link: https://nrl.testcatalog.org/show/[email or web address] Current Interpretive Data last revised 2020. Blood 05/30/2025 8:18 PM CDT 05/30/2025 8:20 PM CDT Randy Sandoval MD LAB BLOOD ORDERABLES nal Result Performing Organization Address [facility] de Phone Number [address] [address] * (ABNORMAL) Comprehensive metabolic panel (05/30/2025 8:18 PM CDT) [facility] Sodium 142 135 - 145 mmol/L Potassium, pl 3.4 3.3 - 4.9 mmol/L [facility] Chloride 95(L) 97 - 110 mmol/L [facility] CO2 25 22 - 32 mmol/L [facility] Anion gap 22(H) 2 - 15 mmol/L [facility] BUN 3(L) 6 - 25 mg/dL [facility] Creatinine 0.51(L) 0.80 - 1.30 mg/dL [facility] Glucose 138 70 - 199 mg/dL [facility] Comment: Interpretive Data Fasting glucose >/= [...] interpretive data was last revised 2022. Calcium 9.5 8.5 - 10.3 mg/dL [facility] Bilirubin, total 0.5 0.1 - 1.2 mg/dL [facility] Protein, pl 8.2 6.5 - 8.5 g/dL [facility] Albumin 4.8 3.5 - 5.0 g/dL [facility] Alk phos 109 40 - 130 Units/L [facility] ALT 146(H) 7 - 55 Units/L [facility] AST 124(H) 10 - 50 Units/L [facility] Blood 05/30/2025 8:18 PM CDT 05/30/2025 8:20 PM CDT Randy Sandoval MD LAB BLOOD ORDERABLES nal Result [facility] [address] [facility] Department [place] [address] * (ABNORMAL) CBC with auto differential (05/30/2025 8:18 PM CDT) [facility] WBC 5.36 3.80 - 9.90 K/cumm Hgb 17.5 13.0 - 17.5 g/dL [facility] Hct 49.2 38.9 - 50.3 % [facility] Plt 267 150 - 400 K/cumm [facility] MPV 8.8(L) 9.1 - 12.3 fL [facility] RBC 5.77 4.30 - 5.80 M/cumm [facility] MCV 85.3 81.3 - 96.4 fL [facility] MCH 30.3 27.1 - 33.3 pg [facility] MCHC 35.6 32.3 - 35.7 g/dL [facility] RDW CV 13.2 11.1 - 14.9 % [facility] RDW SD 40.6 35.7 - 48.1 fL [facility] NRBC abs 0.00 0.00 - 0.01 K/cumm [facility] Blood Venous blood specimen / Unknown 05/30/2025 8:18 PM CDT 05/30/2025 8:20 PM CDT Randy Sandoval MD LAB BLOOD ORDERABLES Fi nal Result [facility] [address] [facility] Department [place] [address] * ECG 12 lead (05/30/2025 8:09 PM CDT) Ventricular Rate EKG/Min 118 BPM [facility] Atrial Rate 118 BPM [facility] [place]-Interval (MSEC) 122 ms [facility] QRS-Interval (MSEC) 82 ms [facility] QT-Interval (MSEC) 320 ms [facility] QTc 448 ms [facility] P [place] 46 degrees [facility] R [place] 46 degrees [facility] T [place] 54 degrees [facility] Diagnosis Sinus tachycardia Otherwise normal ECG When compared with ECG of 14-FEB-2025 13:26, No significant change was found Confirmed by AMANDA MCCRACKEN M.D. ([id number]) on 05/31/2025 9:42:03 AM [facility] 05/30/2025 8:09 PM CDT 05/31/2025 9:42 AM CDT us Randy Sandoval MD ECG ORDERABLES Final R esult Performing Organization Address City/[facility]/ZIP Co de Phone Number [facility] documented in this encounter Visit Diagnoses Not on filedocumented in this encounter Administered Medications Inactive Administered Medications - up to 3 most recent administrations Medication Order MAR Action Action Date Dose Rate Site aspirin chewable tablet 324 mg 324 mg, oral, Once, On 05/30/25 at 2008, For 1 dose, Indications: Chest PainIndications:Chest Pain Given 05/30/2025 8:23 PM CDT 324 mg documented in this encounter Active and Recently Administered Medications Times are shown in CDT. Scheduled Medication Order 05/28/2025 05/29/2025 05/30/2025 aspirin chewable tablet 324 mg (COMPLETED) 324 mg, oral, Once, On 05/30/25 at 2008, For 1 dose, Indications: Chest Pain 2022 (Given - Provid er: Renata Garcia RN) documented in this encounter Orders Medications Ordered That John ht Not Have Been Administered Count Last Ordered Date First Ordered Date aspirin chewable tablet 324 mg 1 05/30/2025 documented in this encounter Care Teams Duster Tender Relationship Specialty Start Date End Date No, Physician PCP - General 08/24/21 documented as of this encounter
[2025-06-01] VITALS (19 sets, daily range): BP systolic 123–168; BP diastolic 84–116; PULSE 74–116; RESP 14–23; TEMP 36.6–37.1; O2SAT 96–100; BMI 24.8
--- NOTE | ~2025-06-01 | XR_ITS ---
EXAMINATION: XR chest 2V, 06/01/2025 14:12 CDT HISTORY: cough, pt states cp from drinking alcohol x 2 wks COMPARISON: No comparisons available. Technique: 2 views obtained. Findings: The lungs are clear, no effusion. No pneumothorax. Heart is normal size. Mediastinal and hilar contours are within normal limits. Bony thorax no acute abnormality. Impression: No acute cardiopulmonary abnormality. Reviewed, dictated and finalized at location P. Impression: No acute cardiopulmonary abnormality.
--- NOTE | ~2025-06-01 | CT_ITS ---
Matt Forman EXAMINATION: CT abdomen pelvis w con COMPARISON: None HISTORY: upper abd pain, elevated lipase TECHNIQUE: Axial images were obtained through the abdomen, pelvis post administration of IV contrast. Oral contrast was also administered. Coronal reconstruction images were obtained from the axial views. CT scan performed using dose optimization techniques including the following automated exposure control; adjustment of mA and/or kV; use of iterative reconstruction technique. Automatic exposure control was used to reduce radiation dose. Permanent radiation dose record is archived to PACS. FINDINGS: CT abdomen: LUNG BASES: The lung bases are clear. The visualized portions of the heart and pericardium are unremarkable. LIVER: The liver is enlarged. Severe hepatic steatosis. Portal vein patent. No intrahepatic biliary duct dilatation. SPLEEN: Unremarkable. KIDNEYS: Right Kidney: Unremarkable. No calculi. No hydronephrosis. Left Kidney: Unremarkable. No calculi. No hydronephrosis ADRENAL GLANDS: Unremarkable. PANCREAS: Unremarkable. GALLBLADDER/BILIARY: Unremarkable. No biliary dilatation. STOMACH AND ESOPHAGUS: The stomach is decompressed. BOWEL/MESENTERY: Moderate fecal content. No colitis or diverticulitis. Appendix not identified, no inflammation surrounding the cecum. Mesentery normal. No dilated or thickened loops of small bowel. ADENOPATHY/RETROPERITONEUM: No lymphadenopathy. AORTA/VASCULATURE: Normal caliber aorta. FREE FLUID OR FREE AIR: No free fluid.. CT pelvis: SOLID ORGANS/REPRODUCTIVE: Unremarkable. BLADDER: Within normal limits. OSSEOUS STRUCTURES: No acute osseous abnormality.No suspicious lesions. OVERLYING SOFT TISSUES: Unremarkable. IMPRESSION: 1. No acute intra-abdominal process. Incidental findings above Reviewed, dictated and finalized at location P.
--- NOTE | 2025-06-01 13:54 | ED_ITS ---
HPI - General Adult General Chief complaint: Chest Pain <Samir Street APRN - Last Filed: 06/01/25 14:09> Stated complaint: Chest pain/vomiting blood x 2days <Samir Street APRN - Last Filed: 06/01/25 14:09> Time Seen by Provider: 06/01/25 17:17 <Samir [address] APRN - Last Filed: 06/01/25 14:09> Focused HPI: 30-year-old male heavy EtOH abuse presents ER complaining constant midsternal chest pain described as a burning sensation. Also states he has noticed specks of blood in his vomit. Admits to 5 drinks this morning. States the burning sensation is improved when he is drinking. Has a history of AFib due to alcohol use. GENERAL: Well-appearing, well-nourished, and in no acute distress. HEAD: Normocephalic, atraumatic. CHEST: Clear to auscultation. No respiratory distress. HEART: Regular rate and rhythm. NEURO: Alert and oriented x3. Patient screened in triage and initial orders placed. Additional care and disposition to be based upon diagnostic testing and treatment. <Samir Street APRN - Last Filed: 06/01/25 14:09> History of Present Illness HPI narrative: Agree with HPI. History of alcoholism and gastritis. Continues drinking. Went 4 days without drinking last week and decided to start drinking again. No history of alcoholic seizure. He is open to going to treatment facility. Reports he typically drinks 24 beers a day. He did have some vomiting today that had specks of blood. <Chuckie Lange MD - Last Filed: 06/01/25 19:45> Related Data Allergies/adverse reactions: Allergies Allergy/AdvReac Type Severity Reaction Status Date / Time No Known Allergies Allergy Verified 03/13/25 03:16 <Samir Street APRN - Last Filed: 06/01/25 14:09> Review of Systems 2 Review of Systems: All systems reviewed & are unremarkable except as noted in HPI and below <Chuckie Lange MD - Last Filed: 06/01/25 19:45> Constitutional: Constitutional: Reports no additional constitutional complaints <Chuckie Lange MD - Last Filed: 06/01/25 19:45> ENT: Reports system reviewed and no additional complaints, except as documented <Chuckie Lange MD - Last Filed: 06/01/25 19:45> Cardiovascular: Cardiovascular: Reports no additional cardiovascular complaints <Chuckie Lange MD - Last Filed: 06/01/25 19:45> Respiratory: Respiratory: Reports no additional respiratory complaints < Chuckie Lange MD - Last Filed: 06/01/25 19:45> Gastrointestinal: Gastrointestinal: Reports no additional gastrointestinal complaints <Chuckie Lange MD - Last Filed: 06/01/25 19:45> PMFSH Past Medical History Medical History: Medical History (Updated 06/01/25 @ 19:06 by Chuckie Lange MD) Alcoholism History of atrial fibrillation <Samir Street APRN - Last Filed: 06/01/25 14:09> Social History Social History: Social History Alcohol intake: current <Samir Street APRN - Last Filed: 06/01/25 14:09> Exam 2 Narrative: GENERAL: Well-appearing, well-nourished, and in no acute distress. HEAD: Normocephalic, atraumatic. ENT: Mucous membranes moist. CHEST: Clear to auscultation. No respiratory distress. HEART: Tachycardic and regular. Normal peripheral pulses. ABDOMEN: Soft, nontender, nondistended. EXTREMITIES: Normal range of motion. No edema. SKIN: Warm, dry, no rash. NEURO: Mildly tremulous. Alert and oriented x3. PSYCH: Normal mood and affect. <Chuckie Lange MD - Last Filed: 06/01/25 19:45> Course Course Emergency Course: Patient reports he is going through withdrawal. Labs show that he has an alcohol level 210, but that was earlier in the day. Viral swabs negative. Elevated transaminases which are chronic. No renal issues. Mildly low potassium likely from emesis. Patient given oral replacement. Heart rate improved with IV fluid but then went back up. Still tremulous after valium. Accepted by hospitalist service to IMU. <Chuckie Lange MD - Last Filed: 06/01/25 19:45> Vital Signs Vital signs: Vital Signs Temperature 98 F 06/01/25 13:50 Pulse Rate 109 H 06/01/25 13:50 Respiratory Rate 16 06/01/25 13:50 Blood Pressure 152/93 H 06/01/25 13:50 Pulse Oximetry 98 06/01/25 13:50 Oxygen Delivery Room Air 06/01/25 13:50 Temperature 98.3 F 06/01/25 16:42 Pulse Rate 95 06/01/25 18:37 Respiratory Rate 19 06/01/25 18:37 Blood Pressure 144/98 H 06/01/25 18:37 Pulse Oximetry 99 06/01/25 18:37 Oxygen Delivery Room Air 06/01/25 17:34 <Samir [address], BUILDING CONSTRUCTION ENGINEER - Last Filed: 06/01/25 14:09> Vital Signs Temperature 98 F 06/01/25 13:50 Pulse Rate 109 H 06/01/25 13:50 Respiratory Rate 16 06/01/25 13:50 Blood Pressure 152/93 H 06/01/25 13:50 Pulse Oximetry 98 06/01/25 13:50 Oxygen Delivery Room Air 06/01/25 13:50 Temperature 98.3 F 06/01/25 16:42 Pulse Rate 95 06/01/25 18:37 Respiratory Rate 19 06/01/25 18:37 Blood Pressure 144/98 H 06/01/25 18:37 Pulse Oximetry 99 06/01/25 18:37 Oxygen Delivery Room Air 06/01/25 17:34 <Chuckie Lange MD - Last Filed: 06/01/25 19:45> Medical Decision Making Vital Signs Vital Signs: Vital Signs Temperature 98 F 06/01/25 13:50 Pulse Rate 109 H 06/01/25 13:50 Respiratory Rate 16 06/01/25 13:50 Blood Pressure 152/93 H 06/01/25 13:50 Pulse Oximetry 98 06/01/25 13:50 Oxygen Delivery Room Air 06/01/25 13:50 Temperature 98.3 F 06/01/25 16:42 Pulse Rate 95 06/01/25 18:37 Respiratory Rate 19 06/01/25 18:37 Blood Pressure 144/98 H 06/01/25 18:37 Pulse Oximetry 99 06/01/25 18:37 Oxygen Delivery Room Air 06/01/25 17:34 <Samir Street APRN - Last Filed: 06/01/25 14:09> Vital Signs Temperature 98 F 06/01/25 13:50 Pulse Rate 109 H 06/01/25 13:50 Respiratory Rate 16 06/01/25 13:50 Blood Pressure 152/93 H 06/01/25 13:50 Pulse Oximetry 98 06/01/25 13:50 Oxygen Delivery Room Air 06/01/25 13:50 Temperature 98.3 F 06/01/25 16:42 Pulse Rate 95 06/01/25 18:37 Respiratory Rate 19 06/01/25 18:37 Blood Pressure 144/98 H 06/01/25 18:37 Pulse Oximetry 99 06/01/25 18:37 Oxygen Delivery Room Air 06/01/25 17:34 <Chuckie Lange MD - Last Filed: 06/01/25 19:45> Lab Data Result diagrams: 06/01/25 14:08 06/01/25 14:08 <Samir [address] APRN - Last Filed: 06/01/25 14:09> Labs: Lab Results 06/01/25 Range/Units 14:08 WBC 5.4 (4.5-10.0) K/mm3 RBC 5.70 (4.6-6.20) M/mm3 Hgb 17.3 (14.0-18.0) g/dL Hct 47.9 (42.0-52.0) % MCV 84.0 (80-100) fl MCH 30.4 (26-34) pg MCHC 36.1 H (32-36) g/dl RDW 12.8 (11.5-14.5) % Plt Count 197 (150-375) k/mm3 MPV 9.0 (7.4-10.4) fl Immature Gran % (Auto) 0.4 (0-0.5) % Neut % (Auto) 77.6 H (45.5-73.1) % Lymph % (Auto) 13.8 L (18.3-44.2) % Wetzel % (Auto) 7.1 (2.6-8.5) % Eos % (Auto) 0.2 (0-4.4) % Baso % (Auto) 0.9 (0.2-1.2) % Lymph # (Auto) 0.74 L (0.9-3.2) K/mm3 Wetzel # (Auto) 0.4 (0.1-0.6) K/mm3 Eos # (Auto) 0.0 (0-0.3) K/mm3 Baso # (Auto) 0.1 (0.0-0.1) K/mm3 Abs Immat Gran (auto) 0.02 (0.00-0.031) K/mm3 Absolute Neuts (auto) 4.2 (1.3-6.7) K/mm3 Absolute Nucleated RBC 0.000 (0.0-0.012) K/mm3 Nucleated RBC % 0.0 (0.0-0.2) % Sodium 135 L (137-145) mmol/L Potassium 3.1 L (3.4-5.0) mmol/L Chloride 90 L (98-107) mmol/L Carbon Dioxide 26 (22-30) mmol/L Anion Gap 19 H (4-12) mmol/L BUN 5 L (9-20) mg/dL Creatinine 0.51 L (0.7-1.3) mg/dL Estim Creat Clear Calc 174 ml/min Estimated GFR > 60 (59 - ) Glucose 157 H (65-110) mg/dL Calcium 9.2 (8.4-10.2) mg/dL Total Bilirubin 0.9 (0.2-1.3) mg/dL AST 159 H (17-59) U/L ALT 143 H (6-50) U/L Alkaline Phosphatase 102 (38-126) U/L Troponin I < 0.012 (0.000-0.034) ng/mL Total Protein 8.5 H (6.3-8.2) g/dL Albumin 5.1 (3.5-5.1) g/dL Lipase 351 H (23-300) U/L Ethyl Alcohol 210 (<10) mg/dL Influenza A (RT-PCR) Negative (Negative) Influenza B (RT-PCR) Negative (Negative) RSV (RT-PCR) Negative (Negative) SARS-CoV-2 RNA (RT-PCR) Negative (Negative) Blood Type O Positive Antibody Screen Negative <Samir Street, BUILDING CONSTRUCTION ENGINEER - Last Filed: 06/01/25 14:09> Lab Results 10/06/25 Range/Units 14:08 WBC 5.4 (4.5-10.0) K/mm3 RBC 5.70 (4.6-6.20) M/mm3 Hgb 17.3 (14.0-18.0) g/dL Hct 47.9 (42.0-52.0) % MCV 84.0 (80-100) fl MCH 30.4 (26-34) pg MCHC 36.1 H (32-36) g/dl RDW 12.8 (11.5-14.5) % Plt Count 197 (150-375) k/mm3 MPV 9.0 (7.4-10.4) fl Immature Gran % (Auto) 0.4 (0-0.5) % Neut % (Auto) 77.6 H (45.5-73.1) % Lymph % (Auto) 13.8 L (18.3-44.2) % Wetzel % (Auto) 7.1 (2.6-8.5) % Eos % (Auto) 0.2 (0-4.4) % Baso % (Auto) 0.9 (0.2-1.2) % Lymph # (Auto) 0.74 L (0.9-3.2) K/mm3 Wetzel # (Auto) 0.4 (0.1-0.6) K/mm3 Eos # (Auto) 0.0 (0-0.3) K/mm3 Baso # (Auto) 0.1 (0.0-0.1) K/mm3 Abs Immat Gran (auto) 0.02 (0.00-0.031) K/mm3 Absolute Neuts (auto) 4.2 (1.3-6.7) K/mm3 Absolute Nucleated RBC 0.000 (0.0-0.012) K/mm3 Nucleated RBC % 0.0 (0.0-0.2) % Sodium 135 L (137-145) mmol/L Potassium 3.1 L (3.4-5.0) mmol/L Chloride 90 L (98-107) mmol/L Carbon Dioxide 26 (22-30) mmol/L Anion Gap 19 H (4-12) mmol/L BUN 5 L (9-20) mg/dL Creatinine 0.51 L (0.7-1.3) mg/dL Estim Creat Clear Calc 174 ml/min Estimated GFR > 60 (59 - ) Glucose 157 H (65-110) mg/dL Calcium 9.2 (8.4-10.2) mg/dL Total Bilirubin 0.9 (0.2-1.3) mg/dL AST 159 H (17-59) U/L ALT 143 H (6-50) U/L Alkaline Phosphatase 102 (38-126) U/L Troponin I < 0.012 (0.000-0.034) ng/mL Total Protein 8.5 H (6.3-8.2) g/dL Albumin 5.1 (3.5-5.1) g/dL Lipase 351 H (23-300) U/L Ethyl Alcohol 210 (<10) mg/dL Influenza A (RT-PCR) Negative (Negative) Influenza B (RT-PCR) Negative (Negative) RSV (RT-PCR) Negative (Negative) SARS-CoV-2 RNA (RT-PCR) Negative (Negative) Blood Type O Positive Antibody Screen Negative <Chuckie Lagne MD - Last Filed: 06/01/25 19:45> Imaging Data Radiologist's impression: ITS Impressions Chest X-Ray 06/01/25 14:29 Impression: No acute cardiopulmonary abnormality. Abdomen/Pelvis CT 06/01/25 15:26 IMPRESSION: 1. No acute intra-abdominal process. Incidental findings above <Chuckie Lange MD - Last Filed: 06/01/25 19:45> Discharge Plan Discharge Clinical Impression: Alcoholism, Acute alcoholic gastritis, Alcoholic hepatitis, Alcohol intoxication, Hypokalemia <Samir Street APRN - Last Filed: 06/01/25 14:09> Patient Disposition: Still a Patient <Samir Street APRN - Last Filed: 06/01/25 14:09> Condition: Stable <Samir Street APRN - Last Filed: 06/01/25 14:09> Patient Language: Serbian <Samir Street APRN - Last Filed: 06/01/25 14:09> Prescriptions: New chlordiazepoxide HCl 25 mg capsule See Rx Instructions .ROUTE .COMPLEX PRN (Reason: alcohol withdrawal) Qty: 20 0RF Rx Instructions: Day 1: 50 mg q.6 hours Day 2: 50 mg q.8 hours Day 3: 50 mg q.12 hours Day 4: 25mg q.12 hours pantoprazole 20 mg tablet,delayed release (DR/EC) 20 mg PO BID Qty: 20 0RF ondansetron 4 mg tablet,disintegrating 4 mg PO Q6H PRN (Reason: nausea and vomiting) Qty: 10 0RF No Action chlordiazepoxide HCl 25 mg capsule See Rx Instructions .ROUTE .COMPLEX PRN (Reason: alcohol withdrawal) Qty: 20 0RF Rx Instructions: Day 1, 50mg every 6 hours. Day 2, 50mg every 8 hours. Day 3, 50mg every 12 hours. Day 4, 25mg every 12 hours, then discontinue. pantoprazole 40 mg tablet,delayed release (DR/EC) 40 mg PO HS 28 Days Qty: 28 0RF chlordiazepoxide HCl 25 mg capsule See Rx Instructions .ROUTE .COMPLEX PRN (Reason: alcohol withdrawal) Qty: 20 0RF Rx Instructions: 25mg dose; Day 1, 50mg every 6 hours. Day 2, 50mg every 8 hours. Day 3, 50mg every 12 hours. Day 4, 25mg every 12 hours, then discontinue. chlordiazepoxide HCl 25 mg capsule See Rx Instructions .Route .COMPLEX Qty: 20 0RF Rx Instructions: 50mg of chlordiazepoxide every 8 hours for two days, then decrease to 25mg every 8 hours for another two days followed by 25mg as needed chlordiazepoxide HCl 25 mg capsule See Rx Instructions .ROUTE .COMPLEX Qty: 20 0RF Rx Instructions: 50 mg of chlordiazepoxide every 8 hours for 2 days, then decrease to 25 mg every 8 hours for another 2 days, followed by 25 mg as needed. <Samir Street, CASSIE - Last Filed: 06/01/25 14:09> Follow-up/Referrals: Ciaran Sharma MD [Physician, Family Practice] - 1 Week PHYSICIAN,SEM MANAGER [Primary Care Provider, Internal Medicine] <Samir Street APRN - Last Filed: 06/01/25 14:09>
--- NOTE | 2025-06-01 13:55 | ECG_ITS ---
Test Date: 2025-06-01 13:59:40 Measurements Intervals [place] Rate: 109 P: 55 TN: 129 QRS: 48 QRSD: 93 T: 55 QT: 330 QTc: 446 Interpretive Statements SINUS TACHYCARDIA BORDERLINE ST-T WAVE ABNORMALITY- INFERIOR LEADS BASELINE ARTIFACT- I, II, AVR, AVL, AVF ABNORMAL ECG Compared to ECG 03/13/2025 03:40:22 HEART RATE HAS INCREASED Electronically Signed On 06-01-2025 14:06:53 CDT by Stephen Alfonso D.O.
[2025-06-01 14:18] LABS: Hematocrit 47.9 % (42.0-52.0); Hemoglobin 17.3 g/dL (14.0-18.0); Immature Granulocyte Percent A 0.4 % (0-0.5); Lymphocytes Absolute Auto 0.74 K/mm3 (0.9-3.2); Mean Corpuscular HGB Conc 36.1 g/dl (32-36); Mean Corpuscular Hemoglobin 30.4 pg (26-34); Mean Corpuscular Volume 84.0 fl (80-100); Nucleated Red Blood Cells Absolute Auto 0.000 K/mm3 (0.0-0.012); Nucleated Red Blood Cells Perc 0.0 % (0.0-0.2); Platelet Count Result 197 k/mm3 (150-375); Red Blood Count 5.70 M/mm3 (4.6-6.20); White Blood Count 5.4 K/mm3 (4.5-10.0)
[2025-06-01 14:32] LABS: Alanine Aminotransferase 143 U/L (6-50); Albumin Level 5.1 g/dL (3.5-5.1); Alkaline Phosphatase 102 U/L (38-126); Anion Gap 19 mmol/L (4-12); Aspartate Amino Transferase 159 U/L (17-59); Bilirubin,Total 0.9 mg/dL (0.2-1.3); Blood Urea Nitrogen 5 mg/dL (9-20); Calcium 9.2 mg/dL (8.4-10.2); Carbon Dioxide 26 mmol/L (22-30); Chloride 90 mmol/L (98-107); Estimated CRCL calculation 174 ml/min; Estimated Glomerular Filt Rate > 60; Glucose 157 mg/dL (65-110); Potassium 3.1 mmol/L (3.4-5.0); Sodium 135 mmol/L (137-145); Total Protein 8.5 g/dL (6.3-8.2)
--- OUTSIDE RECORDS SUMMARY | 2025-06-01 14:38 | XMS_ITS | Clinical Summary ---
Author Organization [facility] Address [address] [place] [address] Care Team Providers Care Full Roll Inspector Name Role Phone Lebron Tanner MD Primary Care Provider [phone] Source Comments [facility],non-owned Affiliates and Associated Physician Practices is amultiple site organization consisting of ambulatory clinics and hospital sitesin [place], [place], [place] and [place]. This disclosure is being madepursuant to the Care Everywhere program and may not contain all information available regarding this patient. 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
--- OUTSIDE RECORDS SUMMARY | 2025-06-01 14:38 | XMS_ITS | Clinical Summary ---
Author Organization [facility] Address [address] [place] [id number] Care Team Providers Care Inspector Finishing Name Role Phone No, Physician Primary Care Provider [phone] Allergies No known active allergies Medications No known medications Active Problems Problem Noted Date Diagnosed Date Alcohol abuse with withdrawal without complicati on 02/05/2025 Alcohol withdrawal syndrome without complication 01/28/2024 Atrial fibrillation with RVR 08/24/2021 Alcohol abuse Encounters Date Type Department Care Team Description 05/30/2025 8:05 PM CDT - 05/30/2025 9:02 PM CDT Emergency [address] [address] Discharge Disposition: Left Against Medical Advice from Last 3 Months Social History Tobacco Use Types Packs/Day Years Used Date Smoking Tobacco: Never Smokeless Tobacco: Never Tobacco Cessation:Counseling Given: Not Answered Alcohol Use Standard Drinks/Week Comments Yes 6 (1 standard drink = 0.6 oz pur e alcohol) [facility] Utilities Answer Date Recorded In the past 12 months has [employer], gas, oil, or water [employer] threatened to shut off services in your [...] 02/06/2025 How often do you attend chur or restorationism services? 1 to 4 times per year 02/06/2025 Do you belong to any clubs o r organizations such as methodist groups, unions, fraternal or athletic groups, or [...] any time in the past 12 m [facility], were you homeless or living in a jail (including now)? No 02/06/2025 Personal Safety Answer Date Recorded Have you ever been in or are you currently in a harmful physical or emotional relationship or is someone making you feel afraid or unsafe? 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 Gender Identity Male 08/26/2023 6:42 AM ELECTRICAL ASSISTANT Sexual Orientation Not on file Obstetrics History [...] (170 lb) 05/30/2025 8:09 PM CDT Height 170.2 cm (5' 7) 02/14/2025 2:59 PM CDT Body Mass Index 26.63 02/14/2025 2:59 PM CDT Plan of Treatment Health Maintenance Due Date Last Done Comments Depression Screening 1997 Regular Well Visit/Exam 18-64 2015 Influenza Vaccine (#1) 2025 06/02/2013 DTaP/Tdap/Td Vaccine (4 - Td or Tdap) 06/11/2025 06/11/2015, 03/26/2009, 04/11/2001 Hepatitis B Screening Completed 03/18/1998 , 1997, 1997 Pneumococcal vaccine <65 Completed 04/11/2001 Varicella Vaccines Completed 03/09/2007, 03/19/1998 HPV Vaccines Completed 10/07/2013, 02/2013, 04/01/2013 Hepatitis C Screening Completed 01/29/2024 Procedures Procedure Name Priority Date/Time Associated Diagnosis Comments EGFR STAT 05/30/2025 8:18 PM CDT DIFFERENTIAL AUTO STAT 05/30/2025 8:1 8 PM CDT ETHANOL STAT 05/30/2025 8:18 PM CDT TROPONIN T HIGH-SENSITIVITY SERIES (BASELINE, 2HR, 4HR, 6HR) STAT 05/30/2025 8:18 PM CDT COMPREHENSIVE METABOLIC PANEL STAT 05/30/2025 8:18 PM CDT CBC WITH AUTO DIFFERENTIAL STAT 05/30/2025 8:18 PM CDT ECG 12-LEAD STAT 05/30/2025 8:09 PM CDT HEPATITIS PANEL, ACUTE Routine 4:59 AM CDT from Last 3 Months or Most Recently Relevant to Health Maintenance Results * Troponin T high-sensitivity series (baseline, 2hr, 4hr, 6hr) (05/30/2025 8:18 PM CDT) Trop T hs <6 <=22 ng/L Comment: Interpretive Data For further hscTnT resources including the diagnostic algorithm and an aid in interpretation, copy and paste this link: https://nrl.testcatalog.org/show/hsTrop Current Interpretive Data last revised 2020. Blood 05/30/2025 8:18 PM CDT 05/30/2025 8:20 PM CDT us Randy Sandoval MD LAB BLOOD ORDERABLES Fi nal Result [facility] [address] [facility] [place] [address] * eGFR (05/30/2025 8:18 PM CDT) eGFR >90 >=60 mL/min/1. 73 [...] Inclusion of Race in Diagnosing Kidney Disease, LENISManuel 2020). The CKD-EPI equation should not be used for patients with unstable renal function and has not been validated in children and those over 70. Current interpretive data was last reviewed 2021. Blood 05/30/2025 8:18 PM CDT 05/30/2025 8:20 PM CDT us Randy Sandoval MD LAB BLOOD ORDERABLES nal Result [facility] [address] [facility] [place] [address] * Differential, auto (05/30/2025 8:18 PM CDT) Pathologist [facility] Neutrophil abs 3.75 1.50 - 6.50 K/cumm Imm gran abs 0.02 0.00 - 0.10 K/cumm [facility] Lymphocyte abs 1.16 0.80 - 3.30 K/cumm [facility] Monocyte abs 0.35 0.20 - 0.80 K/cumm [facility] Eosinophil abs 0.01 0.00 - 0.50 K/cumm [facility] Basophil abs 0.07 0.00 - 0.10 K/cumm [facility] Neutrophil pct 70.0 % [facility] Comment: Interpretive Data Percent cell count reference ranges are not reported, since discordance with absolute values may lead to misinterpretation of CBC data. Current Interpretive Data was last revised on 2017. Imm gran pct 0.4 % [facility] Comment: Interpretive Data Percent cell count reference ranges are not reported, since discordance with absolute values may lead to misinterpretation of CBC data. Current Interpretive Data was last revised on 2017. Lymphocyte pct 21.6 % [facility] Comment: Interpretive Data Percent cell count reference ranges are not reported, since discordance with absolute values may lead to misinterpretation of CBC data. Current Interpretive Data was last revised on 2017. Monocyte pct 6.5 % [facility] Comment: Interpretive Data Percent cell count reference ranges are not reported, since discordance with absolute values may lead to misinterpretation of CBC data. Current Interpretive Data was last revised on 2017. Eosinophil pct 0.2 % [facility] Comment: Interpretive Data Percent cell count reference ranges are not reported, since discordance with absolute values may lead to misinterpretation of CBC data. Current Interpretive Data was last revised on 2017. Basophil pct 1.3 % [facility] Comment: Interpretive Data Percent cell count reference ranges are not reported, since discordance with absolute values may lead to misinterpretation of CBC data. Current Interpretive Data was last revised on 2017. Blood 05/30/2025 8:18 PM CDT 05/30/2025 8:20 PM CDT us Randy Sandoval MD LAB BLOOD ORDERABLES Fi nal Result [facility] [address] [facility] Department of Laboratories [place], [place] [id number] * (ABNORMAL) CBC with auto differential (05/30/2025 8:18 PM CDT) Pathologist [facility] WBC 5.36 3.80 - 9.90 K/cumm Hgb 17.5 13.0 - 17.5 g/dL [facility] Hct 49.2 38.9 - 50.3 % [facility] Plt 267 150 - 400 K/cumm [facility] MPV 8.8(L) 9.1 - 12.3 fL [facility] RBC 5.77 4.30 - 5.80 M/cumm [facility] MCV 85.3 81.3 - 96.4 fL [facility] MCH 30.3 27.1 - 33.3 pg [facility] MCHC 35.6 32.3 - 35.7 g/dL [facility] RDW CV 13.2 11.1 - 14.9 % [facility] RDW SD 40.6 35.7 - 48.1 fL [facility] NRBC abs 0.00 0.00 - 0.01 K/cumm [facility] Blood Venous blood specimen / Unknown 05/30/2025 8:18 PM CDT 05/30/2025 8:20 PM CDT Randy Sandoval MD LAB BLOOD ORDERABLES [facility] Result Performing Organization Address [facility] Co de Phone Number [address] [address] * (ABNORMAL) Ethanol (05/30/2025 8:18 PM CDT) Ethanol 356(H) <=10 mg/dL Comment: Interpretive Data Legal limit of intoxication > or = 80 mg/dL Levels > or = 400 mg/dL are potentially TOXIC. Current interpretive data was last revised on 2018. Blood 05/30/2025 8:18 PM CDT 05/30/2025 8:20 PM CDT Randy Sandoval MD LAB BLOOD ORDERABLES [facility] Result Performing Organization Address [facility] de Phone Number [address] [address] * (ABNORMAL) Comprehensive metabolic panel (05/30/2025 8:18 PM CDT) Pathologist [facility] Sodium 142 135 - 145 mmol/L Potassium, pl 3.4 3.3 - 4.9 mmol/L [facility] Chloride 95(L) 97 - 110 mmol/L [facility] CO2 25 22 - 32 mmol/L [facility] Anion gap 22(H) 2 - 15 mmol/L [facility] BUN 3(L) 6 - 25 mg/dL [facility] Creatinine 0.51(L) 0.80 - 1.30 mg/dL [facility] Glucose 138 70 - 199 mg/dL [facility] Comment: Interpretive Data Fasting glucose >/= 126 [...] classification and Diagnosis of Diabetes Diabetes Care 2022; 46: S19-S40. Current interpretive data was last revised 2022. Calcium 9.5 8.5 - 10.3 mg/dL [facility] Bilirubin, total 0.5 0.1 - 1.2 mg/dL [facility] Protein, pl 8.2 6.5 - 8.5 g/dL [facility] Albumin 4.8 3.5 - 5.0 g/dL [facility] Alk phos 109 40 - 130 Units/L [facility] ALT 146(H) 7 - 55 Units/L [facility] AST 124(H) 10 - 50 Units/L [facility] Blood 05/30/2025 8:18 PM CDT 05/30/2025 8:20 PM CDT Randy Sandoval MD LAB BLOOD ORDERABLES Fi nal Result Performing Organization Address City/[facility]/ZIP Co de Phone Number [facility] [address] [facility] Department [place] [address] * ECG 12 lead (05/30/2025 8:09 PM CDT) Pathologist [facility] Ventricular Rate EKG/Min 118 BPM [facility] Atrial Rate 118 BPM [facility] FL-Interval (MSEC) 122 ms [facility] QRS-Interval (MSEC) 82 ms [facility] QT-Interval (MSEC) 320 ms [facility] QTc 448 ms [facility] P [place] 46 degrees [facility] R [place] 46 degrees [facility] T [place] 54 degrees [facility] Diagnosis Sinus tachycardia Otherwise normal ECG When compared with ECG of 14-FEB-2025 13:26, No significant change was found Confirmed by AMANDA MCCRACKEN M.D. ([id number]) on 05/31/2025 9:42:03 AM [facility] 05/30/2025 8:09 PM CDT 05/31/2025 9:42 AM CDT Randy Sandoval MD ECG ORDERABLES Final R esult Performing Organization Address City/[facility]/ZIP Co de Phone Number [facility] * Hepatitis panel, acute Blood (01/29/2024 4:59 AM CDT) Hep A IgM Nonreactive Nonreactive Comment: Interpretive Data: If Hep A IgM Ab is reported as Equivocal, a new sample should be drawn in two weeks for testing. Current interpretive data was last revised on 19. Hep B core IgM Nonreactive Nonreactive [facility] Comment: Interpretive Data If HepB Core IgM Ab is reported as Equivocal, a new sample should be drawn in two weeks for testing. Current interpretive data was last revised on 19. Hep C Ab Nonreactive Nonreactive [facility] Comment: Antibodies to HCV not detected. Does [...] last revised on 2019. HepBsAg Nonreactive Nonreactive [facility] Blood 01/29/2024 4:59 AM CDT 01/29/2024 5:09 AM CDT Santana Chaudhry MD LAB MICROBIOLOGY - [facility] ORDERABLES Final Result Performing Organization Address City/State/[facility] Co de Phone Number [facility] [address] [facility] Department [place] [address] from Last 3 Months or Most Recently Relevant to Health Maintenance Insurance [employer] PPO [facility] PPO * Guarantor: Matt Forman Account Type Relation to Patient Date of Phone Billing Address Personal/Family Self 1995 [id number] [place] [address] [facility] PPO Advance Directives For more information, please contact: [phone] * Full Code (Latest Code Status on File) Date Activated Date Inactivated Comments 02/05/2025 4:29 PM 02/06/2025 3:10 PM * Full Code Date Activated Date Inactivated Comments 01/28/2024 5:53 PM 01/29/2024 4:04 PM * Full Code Date Activated Date Inactivated Comments 08/25/2021 9:18 AM 08/25/2021 4:55 PM Care Teams Inspector Finishing Relationship Specialty Start Date End Date No, Physician PCP - General 08/24/21
[2025-06-01 14:43] LABS: Troponin I < 0.012 ng/mL (0.000-0.034)
[2025-06-01 14:57] LABS: Lipase 351 U/L (23-300)
[2025-06-01 15:20] LABS: Influenza A QL RT-PCR Negative (Negative); Influenza B QL RT-PCR Negative (Negative); RSV RNA, RT-PCR Negative (Negative); SARS-CoV-2 RNA PCR Negative (Negative)
[2025-06-01] MEDS: diazePAM INJ (*CRX) 10 MG/2 ML SYRINGE 5 MG IV PUSH ×2 (18:03→19:41)
[2025-06-01] MEDS: PANTOPRAZOLE SODIUM IV 40 MG VIAL (18:03)
[2025-06-01] MEDS: SODIUM CHLORIDE 0.9% IV 1,000 ML 999 ML IV CONT ×2 (18:05→18:19)
[2025-06-01] MEDS: POTASSIUM CHLORIDE 20 MEQ ER TABLET 40 MEQ PO (18:17)
--- OUTSIDE RECORDS SUMMARY | 2025-06-01 18:28 | XMS_ITS | Clinical Summary ---
Author Organization [facility] Address [address] [place] [phone] Care Team Providers Care Books Salesperson Name Role Phone No, Physician Primary Care Provider [phone] Allergies No known active allergies Medications No known medications Active Problems Problem Noted Date Diagnosed Date Alcohol abuse with withdrawal without complicati on 02/05/2025 Alcohol withdrawal syndrome without complication 01/28/2024 Atrial fibrillation with RVR 08/24/2021 Alcohol abuse Encounters Date Type Department Care Team Description 05/30/2025 8:05 PM CDT - 05/30/2025 9:02 PM CDT Emergency [address] [address] Discharge Disposition: Left Against Medical Advice from Last 3 Months Social History Tobacco Use Types Packs/Day Years Used Date Smoking Tobacco: Never Smokeless Tobacco: Never Tobacco Cessation:Counseling Given: Not Answered Alcohol Use Standard Drinks/Week Comments Yes 6 (1 standard drink = 0.6 oz pur e alcohol) [facility] Utilities Answer Date Recorded In the past 12 months has [employer], gas, oil, or water [employer] threatened to shut off services in your [...] How often do you attend chur or sikhism services? 1 to 4 times per year 02/06/2025 Do you belong to any clubs o r organizations such as alevism groups, unions, fraternal or athletic groups, or [...] any time in the past 12 m [facility], were you homeless or living in a senior living (including now)? No 02/06/2025 Personal Safety Answer Date Recorded Have you ever been in or are you currently in a harmful physical or emotional relationship or is someone making you feel afraid or unsafe? 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 Gender Identity Male 08/26/2023 6:42 AM INTEGRITY MANAGER Sexual Orientation Not on file Obstetrics History [...] LAB BLOOD ORDERABLES Fi nal Result [facility] [address] [facility] Department [place] [address] * eGFR (05/30/2025 8:18 PM [...] Sandoval MD LAB BLOOD ORDERABLES nal Result [facility] [address] [facility] [place] [address] * Differential, auto (05/30/2025 8:18 PM CDT) Pathologist [facility] Neutrophil abs 3.75 1.50 - 6.50 K/cumm Imm gran abs 0.02 0.00 - 0.10 K/cumm [facility] Lymphocyte abs 1.16 0.80 - 3.30 K/cumm [facility] Monocyte abs 0.35 0.20 - 0.80 K/cumm [facility] Eosinophil abs 0.01 0.00 - 0.50 K/cumm [facility] Basophil abs 0.07 0.00 - 0.10 K/cumm [facility] Neutrophil pct 70.0 % [facility] Comment: Interpretive Data Percent cell count reference ranges are not reported, since discordance with absolute values may lead to misinterpretation of CBC data. Current Interpretive Data was last revised on 2017. Imm gran pct 0.4 % [facility] Comment: Interpretive Data Percent cell count reference ranges are not reported, since discordance with absolute values may lead to misinterpretation of CBC data. Current Interpretive Data was last revised on 2017. Lymphocyte pct 21.6 % [facility] Comment: Interpretive Data Percent cell count reference ranges are not reported, since discordance with absolute values may lead to misinterpretation of CBC data. Current Interpretive Data was last revised on 2017. Monocyte pct 6.5 % [facility] Comment: Interpretive Data Percent cell count reference ranges are not reported, since discordance with absolute values may lead to misinterpretation of CBC data. Current Interpretive Data was last revised on 2017. Eosinophil pct 0.2 % [facility] Comment: Interpretive Data Percent cell count reference ranges are not reported, since discordance with absolute values may lead to misinterpretation of CBC data. Current Interpretive Data was last revised on 2017. Basophil pct 1.3 % [facility] Comment: Interpretive Data Percent cell count reference ranges are not reported, since discordance with absolute values may lead to misinterpretation of CBC data. Current Interpretive Data was last revised on 2017. Blood 05/30/2025 8:18 PM CDT 05/30/2025 8:20 PM CDT us Randy Sandoval MD LAB BLOOD ORDERABLES Fi nal Result [facility] [address] [facility] Department of Laboratories [place], [place] [id number] * (ABNORMAL) CBC with auto differential (05/30/2025 8:18 PM CDT) Pathologist [facility] WBC 5.36 3.80 - 9.90 K/cumm Hgb 17.5 13.0 - 17.5 g/dL [facility] Hct 49.2 38.9 - 50.3 % [facility] Plt 267 150 - 400 K/cumm [facility] MPV 8.8(L) 9.1 - 12.3 fL [facility] RBC 5.77 4.30 - 5.80 M/cumm [facility] MCV 85.3 81.3 - 96.4 fL [facility] MCH 30.3 27.1 - 33.3 pg [facility] MCHC 35.6 32.3 - 35.7 g/dL [facility] RDW CV 13.2 11.1 - 14.9 % [facility] RDW SD 40.6 35.7 - 48.1 fL [facility] NRBC abs 0.00 0.00 - 0.01 K/cumm [facility] Blood Venous blood specimen / Unknown 05/30/2025 8:18 PM CDT 05/30/2025 8:20 PM CDT Randy Sandoval MD LAB BLOOD ORDERABLES [facility] Result Performing Organization Address [facility] Co de Phone Number [address] [address] * (ABNORMAL) Ethanol (05/30/2025 8:18 PM CDT) Ethanol 356(H) <=10 mg/dL Comment: Interpretive Data Legal limit of intoxication > or = 80 mg/dL Levels > or = 400 mg/dL are potentially TOXIC. Current interpretive data was last revised on 2018. Blood 05/30/2025 8:18 PM CDT 05/30/2025 8:20 PM CDT Randy Sandoval MD LAB BLOOD ORDERABLES [facility] Result Performing Organization Address [facility] de Phone Number [address] [address] * (ABNORMAL) Comprehensive metabolic panel (05/30/2025 8:18 PM CDT) Pathologist [facility] Sodium 142 135 - 145 mmol/L Potassium, pl 3.4 3.3 - 4.9 mmol/L [facility] Chloride 95(L) 97 - 110 mmol/L [facility] CO2 25 22 - 32 mmol/L [facility] Anion gap 22(H) 2 - 15 mmol/L [facility] BUN 3(L) 6 - 25 mg/dL [facility] Creatinine 0.51(L) 0.80 - 1.30 mg/dL [facility] Glucose 138 70 - 199 mg/dL [facility] Comment: Interpretive Data Fasting glucose >/= [...] 2022. Calcium 9.5 8.5 - 10.3 mg/dL [facility] Bilirubin, total 0.5 0.1 - 1.2 mg/dL [facility] Protein, pl 8.2 6.5 - 8.5 g/dL [facility] Albumin 4.8 3.5 - 5.0 g/dL [facility] Alk phos 109 40 - 130 Units/L [facility] ALT 146(H) 7 - 55 Units/L [facility] AST 124(H) 10 - 50 Units/L [facility] Blood 05/30/2025 8:18 PM CDT 05/30/2025 8:20 PM CDT Randy Sandoval MD LAB BLOOD ORDERABLES Fi nal Result Performing Organization Address City/[facility]/ZIP Co de Phone Number [facility] [address] [facility] [place] [address] * ECG 12 lead (05/30/2025 8:09 PM CDT) Pathologist [facility] Ventricular Rate EKG/Min 118 BPM [facility] Atrial Rate 118 BPM [facility] MI-Interval (MSEC) 122 ms [facility] QRS-Interval (MSEC) 82 ms [facility] QT-Interval (MSEC) 320 ms [facility] QTc 448 ms [facility] P [place] 46 degrees [facility] R [place] 46 degrees [facility] T [place] 54 degrees [facility] Diagnosis Sinus tachycardia Otherwise normal ECG When compared with ECG of 14-FEB-2025 13:26, No significant change was found Confirmed by AMANDA MCCRACKEN M.D. ([id number]) on 05/31/2025 9:42:03 AM [facility] 05/30/2025 8:09 PM CDT 05/31/2025 9:42 AM CDT Randy Sandoval MD ECG ORDERABLES Final R esult Performing Organization Address City/[facility]/ZIP Co de Phone Number [facility] * Hepatitis panel, acute Blood (01/29/2024 4:59 AM CDT) Hep A IgM Nonreactive Nonreactive Comment: Interpretive Data: If Hep A IgM Ab is reported as Equivocal, a new sample should be drawn in two weeks for testing. Current interpretive data was last revised on 19. Hep B core IgM Nonreactive Nonreactive [facility] Comment: Interpretive Data If HepB Core IgM Ab is reported as Equivocal, a new sample should be drawn in two weeks for testing. Current interpretive data was last revised on 19. Hep C Ab Nonreactive Nonreactive [facility] Comment: Antibodies to HCV not detected. [...] last revised on 2019. HepBsAg Nonreactive Nonreactive [facility] Blood 01/29/2024 4:59 AM CDT 01/29/2024 5:09 AM CDT Santana Chaudhry MD LAB MICROBIOLOGY - [facility] ORDERABLES Final Result Performing Organization Address City/State/[facility] Co de Phone Number [facility] [address] [facility] [place] [address] from Last 3 Months or Most Recently Relevant to Health Maintenance Insurance [employer] PPO [facility] [place] PPO * Guarantor: aMtt Forman Account Type Relation to Patient Date of Phone Billing Address Personal/Family Self 1995 [id number] [place] [address] [facility] [place] PPO Advance Directives For more information, please contact: [phone] * Full Code (Latest Code Status on File) Date Activated Date Inactivated Comments 02/05/2025 4:29 PM 02/06/2025 3:10 PM * Full Code Date Activated Date Inactivated Comments 01/28/2024 5:53 PM 01/29/2024 4:04 PM * Full Code Date Activated Date Inactivated Comments 08/25/2021 9:18 AM 08/25/2021 4:55 PM Care Teams Books Salesperson Relationship Specialty Start Date End Date No, Physician PCP - General 08/24/21
--- OUTSIDE RECORDS SUMMARY | 2025-06-01 18:28 | XMS_ITS | Clinical Summary ---
Author Organization [facility] Address [address] [place] [address] Care Team Providers Care Manager R D Name Role Phone Lebron Tanner MD Primary Care Provider [phone] Source Comments [facility],non-owned Affiliates and Associated Physician Practices is amultiple site organization consisting of ambulatory clinics and hospital sitesin [place], [place], [place] and [place]. This disclosure is being madepursuant to the Care Everywhere program and may not contain all information available regarding this patient. 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
--- NOTE | 2025-06-01 20:44 | PM.IMHP ---
H&P: HPI History of Present Illness Date/Time: 06/01/25 20:44 Chief Complaint: Nausea vomiting, alcohol withdrawal Narrative: 30-year-old male with history of current alcohol use disorder, history of alcohol withdrawal presents to [facility] ER on 06/01/2025 complaining of nausea vomiting and alcohol withdrawal symptoms. He drinks between 12 and 24 beers per day, reports he has had some withdrawal for a week or so, tries to drink alcohol to curb his symptoms. Last time he drank beer was on the morning of 06/01/2025, however he had nausea and vomiting associated with burning chest pain worse when he is lying down. He saw specks of blood in his vomitus but has not vomited since. ER evaluation demonstrates a cooperative male with low potassium at 3.1, anion gap metabolic acidosis 19, transaminitis, elevated lipase at 351, quad viral screen negative, chest x-ray with no acute findings, CT abdomen pelvis with contrast demonstrating normal pancreas, no acute findings,, liver enlargement and severe hepatic steatosis. He had sinus tachycardia with a normal troponin and EKG without significant ST changes, he had tremors. No hallucinations. Given potassium pill, Valium 5 mg IV x2, 2 L normal saline bolus. Protonix 40 mg IV x1, Pepcid 20 mg IV x1. Admitted on 06/01/2025 for alcohol withdrawal, hypokalemia, nausea vomiting. Review of Systems Review of Systems: All systems reviewed & are unremarkable except as noted in HPI and below (Subjective) [facility] Past Medical History Medical History (Updated 06/01/25 @ 20:49 by Edie Moreno MD) Alcoholism History of atrial fibrillation Social History Social History Alcohol intake: current Meds Home Medications and Allergies Home Medications ?Medication ?Instructions ?Recorded ?Confirmed ?Type chlordiazepoxide HCl 25 mg capsule See Rx Instructions .Route 02/14/25 Rx .COMPLEX PRN alcohol withdrawal #20 caps pantoprazole 40 mg tablet,delayed 40 mg PO HS 4 weeks #28 tabs 02/14/25 Rx release chlordiazepoxide HCl 25 mg capsule See Rx Instructions .Route 02/15/25 Rx .COMPLEX PRN alcohol withdrawal #20 caps chlordiazepoxide HCl 25 mg capsule See Rx Instructions .Route 03/13/25 Rx .COMPLEX #20 caps chlordiazepoxide HCl 25 mg capsule See Rx Instructions .Route 03/13/25 Rx .COMPLEX alcohol withdrawal #20 caps chlordiazepoxide HCl 25 mg capsule See Rx Instructions .Route 06/01/25 Rx .COMPLEX PRN alcohol withdrawal #20 caps ondansetron 4 mg disintegrating 4 mg PO Q6H PRN nausea and 06/01/25 Rx tablet vomiting #10 tabs pantoprazole 20 mg tablet,delayed 20 mg PO BID #20 tabs 06/01/25 Rx release Allergies Allergy/AdvReac Type Severity Reaction Status Date / Time No Known Allergies Allergy Verified 03/13/25 03:16 Vital Signs Vital Signs - 24 hr 06/01/25 13:50 06/01/25 16:42 06/01/25 17:21 Temperature 98 F 98.3 F Pulse Rate 109 H 110 H 116 H Respiratory Rate 16 17 22 H Blood Pressure 152/93 H 168/107 H 160/116 H Pulse Oximetry 98 98 100 Oxygen Delivery Room Air 06/01/25 17:34 06/01/25 17:34 06/01/25 18:01 Temperature Pulse Rate 100 109 H Respiratory Rate 20 21 H Blood Pressure 140/96 H 144/97 H Pulse Oximetry 99 98 97 Oxygen Delivery Room Air Room Air 06/01/25 18:02 06/01/25 18:37 06/01/25 18:46 Temperature Pulse Rate 106 H 95 92 Respiratory Rate 21 H 19 23 H Blood Pressure 144/98 H Pulse Oximetry 98 99 97 Oxygen Delivery 06/01/25 19:00 06/01/25 19:01 06/01/25 19:15 Temperature Pulse Rate 109 H 97 108 H Respiratory Rate 18 19 18 Blood Pressure 140/100 H Pulse Oximetry 96 98 98 Oxygen Delivery 06/01/25 19:42 06/01/25 19:56 06/01/25 20:00 Temperature Pulse Rate 102 H 102 H 95 Respiratory Rate 21 H 16 17 Blood Pressure 123/84 Pulse Oximetry 98 100 99 Oxygen Delivery 06/01/25 20:01 06/01/25 20:15 Temperature Pulse Rate 97 99 Respiratory Rate 14 15 Blood Pressure Pulse Oximetry 99 99 Oxygen Delivery Exam Const: General: comfortable and no acute distress Other: Visible tremor, pleasant and cooperative, slightly withdrawn. HENMT: Mouth: Yes moist mucous membranes Eyes: Pupils: Equal, round and reactive pupils present Resp: Effort & Inspection: normal respiratory effort Auscultation: clear to auscultation bilaterally Cardio: Rate: regular rate Rhythm: regular rhythm Heart sounds: no gallops, no murmurs and no rubs GI: Inspection: distended GI Palp: Yes Soft to palpation, No Tenderness to palpation present (GI) and No Guarding due to palpation present (GI) Auscultation: normal bowel sounds : General: Yes bladder normal to palpation Neuro: Motor exam (neuro): 5/5 motor strength present throughout Extrem: General: no edema H&P: Results Labs Labs: Short CBC 06/01/25 Range/Units 14:08 WBC 5.4 (4.5-10.0) K/mm3 Hgb 17.3 (14.0-18.0) g/dL Hct 47.9 (42.0-52.0) % Plt Count 197 (150-375) k/mm3 BMP 06/01/25 14:08 Sodium 135 L Potassium 3.1 L Chloride 90 L Carbon Dioxide 26 BUN 5 L Creatinine 0.51 L Glucose 157 H Calcium 9.2 Cardiac Enzymes 06/01/25 Range/Units 14:08 Troponin I < 0.012 (0.000-0.034) ng/mL Liver Function 06/01/25 Range/Units 14:08 Total Bilirubin 0.9 (0.2-1.3) mg/dL AST 159 H (17-59) U/L ALT 143 H (6-50) U/L Alkaline Phosphatase 102 (38-126) U/L Albumin 5.1 (3.5-5.1) g/dL Assessment and Plan Assessment and plan (1) Acute alcoholic gastritis: Code(s): K29.20 - Alcoholic gastritis without bleeding Status: Acute (2) Alcoholic hepatitis: Code(s): K70.10 - Alcoholic hepatitis without ascites Status: Acute (3) Hypokalemia: Code(s): E87.6 - Hypokalemia Status: Acute (4) Alcoholism: Code(s): F10.20 - Alcohol dependence, uncomplicated Status: Acute (5) Alcohol withdrawal: Code(s): F10.939 - Alcohol use, unspecified with withdrawal, unspecified Status: Acute (6) High anion gap metabolic acidosis: Code(s): E87.29 - Other acidosis Status: Acute Plan 30-year-old male with history of current alcohol use disorder, history of alcohol withdrawal presents to [facility] ER on 06/01/2025 complaining of nausea vomiting and alcohol withdrawal symptoms. He drinks between 12 and 24 beers per day, reports he has had some withdrawal for a week or so, tries to drink alcohol to curb his symptoms. Last time he drank beer was on the morning of 06/01/2025, however he had nausea and vomiting associated with burning chest pain worse when he is lying down. He saw specks of blood in his vomitus but has not vomited since. ER evaluation demonstrates a cooperative male with low potassium at 3.1, anion gap metabolic acidosis 19, transaminitis, elevated lipase at 351, quad viral screen negative, chest x-ray with no acute findings, CT abdomen pelvis with contrast demonstrating normal pancreas, no acute findings,, liver enlargement and severe hepatic steatosis. He had sinus tachycardia with a normal troponin and EKG without significant ST changes, he had tremors. No hallucinations. Given potassium pill, Valium 5 mg IV x2, 2 L normal saline bolus. Protonix 40 mg IV x1, Pepcid 20 mg IV x1. Admitted on 06/01/2025 for alcohol withdrawal, hypokalemia, nausea vomiting. ----- Alcohol withdrawal -CIWA protocol, Valium 5 mg IV q.2 hours p.r.n. for CIWA scale greater than 15 -seizure precaution, fall precaution -start Librium 50 mg p.o. q.6 hours -D5 normal saline -thiamine, folic acid, daily multivitamin Alcohol use disorder -patient is amenable to rehab in resources. Care coordination consult. Counseling provided. Alcoholic hepatitis -trend liver function enzymes Alcoholic gastritis -last time he vomited was on the morning of 06/01/2025, he appears comfortable otherwise. Reports a speck of blood, likely due to gastritis. Report for worsening and signs of hemorrhage/tear and consult Gastroenterology if appropriate. -continue Protonix 40 mg IV b.i.d. Hypokalemia -likely due to vomiting/poor oral intake -replaced, recheck, magnesium High anion gap metabolic acidosis -likely due to starvation/alcoholic ketosis -D5 normal saline, repeat BMP ----- Drinks between 12-24 beers per day. Denies tobacco, marijuana, recreational drug abuse. Care coordination consultation. Fall precautions/seizure precaution. D5 normal saline Protonix 40 mg IV b.i.d. SCDs only, monitor for further bloody vomitus. Patient reports he lives at home with family. Patient would like to be full code. Admission to IMU with telemetry alcohol withdrawal. Greater than 2 midnights expected for further evaluation and management. Greater than 55 minute spent o [id number], patient Education, medical decision making. Hospitalist MIPS Advance Care Plan I have confirmed that the patient's Advanced Care Plan is present, code status is documented, or surrogate decision maker is listed in patient medical record.: Yes Medication Reconciliation I have utilized all available resources to obtain, update and review the patients current medications (includes all prescriptions, OTC, herbals, cannabis, and nutritional supplements).: Yes
--- NOTE | 2025-06-01 20:49 | ADMGEN ---
This patient, Matt Forman, was admitted to IMU Room 232-01. Patient/family oriented to hospital policies and general routines including ID bracelet, bed and alarms, visiting hours, pain management, procedures, bathroom and other care routines, personal items, smoking policy, room service/diet, and visiting hours. Information on how to activate the Rapid Response Team has been discussed. Patient/Family are encouraged to report perceived risks to care and to ask questions if they do not understand what they are told or what they should do.
[2025-06-01 20:57] LABS: Magnesium 1.9 mg/dL (1.6-2.3)
[2025-06-01] MEDS: DEXTROSE 5%/0.9% SOD CHL 1,000 ML 125 ML IV CONT (21:30)
[2025-06-01] MEDS: THIAMINE HCL 200 MG/2 ML VIAL 100 MG IV PUSH (21:31)
[2025-06-01] MEDS: FOLIC ACID 1 MG/0.2 ML INJ IV PUSH (21:31)
[2025-06-01] MEDS: ONDANSETRON INJ 4 MG/2 ML VIAL IV PUSH (21:32)
[2025-06-01] MEDS: chlordiazePOXIDE (*CRX) 25 MG CAPSULE 50 MG PO (21:33)
[2025-06-01] MEDS: FLUTICASONE PROPIONATE 0.05% NA SPR 16 GM BTL (*BKC) 1 SPRAY NASAL (21:44)
[2025-06-01] MEDS: diazePAM (*CRX) 5 MG TABLET PO (21:47)
[2025-06-01 23:54] LABS: Anion Gap 9 mmol/L (4-12); Blood Urea Nitrogen 3 mg/dL (9-20); Calcium 8.8 mg/dL (8.4-10.2); Carbon Dioxide 29 mmol/L (22-30); Chloride 99 mmol/L (98-107); Estimated CRCL calculation 195 ml/min; Estimated Glomerular Filt Rate > 60; Glucose 108 mg/dL (65-110); Magnesium 1.4 mg/dL (1.6-2.3); Potassium 3.2 mmol/L (3.4-5.0); Sodium 137 mmol/L (137-145)
[2025-06-02] VITALS (13 sets, daily range): BP systolic 121–146; BP diastolic 65–97; PULSE 63–114; RESP 15–18; TEMP 36.7–36.9; O2SAT 97–100
[2025-06-02] MEDS: ACETAMINOPHEN 325 MG TABLET 650 MG PO (00:14)
[2025-06-02] MEDS: MAGNESIUM SULF 4 GM/WATER100ML 4 GM/100 ML BAG IVPB (01:02)
[2025-06-02] MEDS: KCL 20 MEQ/SW 100 ML 100 ML 50 MEQ IVPB (01:02)
[2025-06-02] MEDS: NICOTINE (*PBKC) 21 MG PATCH 1 PATCH TRANSDERM (01:04)
[2025-06-02] MEDS: chlordiazePOXIDE (*CRX) 25 MG CAPSULE 50 MG PO ×4 (03:46→20:49)
[2025-06-02 04:15] LABS: Hematocrit 39.9 % (42.0-52.0); Hemoglobin 14.2 g/dL (14.0-18.0); Immature Granulocyte Percent A 0.3 % (0-0.5); Immature Platelet Fraction Pct 3.8 % (0.9-11.2); Lymphocytes Absolute Auto 0.93 K/mm3 (0.9-3.2); Mean Corpuscular HGB Conc 35.6 g/dl (32-36); Mean Corpuscular Hemoglobin 30.5 pg (26-34); Mean Corpuscular Volume 85.6 fl (80-100); Nucleated Red Blood Cells Absolute Auto 0.000 K/mm3 (0.0-0.012); Nucleated Red Blood Cells Perc 0.0 % (0.0-0.2); Platelet Count Result 145 k/mm3 (150-375); Red Blood Count 4.66 M/mm3 (4.6-6.20); White Blood Count 6.8 K/mm3 (4.5-10.0)
[2025-06-02 04:36] LABS: Alanine Aminotransferase 152 U/L (6-50); Albumin Level 4.0 g/dL (3.5-5.1); Alkaline Phosphatase 108 U/L (38-126); Anion Gap 8 mmol/L (4-12); Aspartate Amino Transferase 373 U/L (17-59); Bilirubin,Total 2.7 mg/dL (0.2-1.3); Blood Urea Nitrogen 4 mg/dL (9-20); Calcium 8.8 mg/dL (8.4-10.2); Carbon Dioxide 27 mmol/L (22-30); Chloride 100 mmol/L (98-107); Estimated CRCL calculation 181 ml/min; Estimated Glomerular Filt Rate > 60; Glucose 94 mg/dL (65-110); Magnesium 2.9 mg/dL (1.6-2.3); Potassium 3.6 mmol/L (3.4-5.0); Sodium 135 mmol/L (137-145); Total Protein 6.7 g/dL (6.3-8.2)
[2025-06-02] MEDS: THIAMINE HCL 200 MG/2 ML VIAL 100 MG IV PUSH (09:25)
[2025-06-02] MEDS: FOLIC ACID 1 MG/0.2 ML INJ IV PUSH (09:25)
[2025-06-02] MEDS: MULTIVITAMINS THERAPEUTIC TAB (*BKC) 1 TABLET PO (09:25)
[2025-06-02] MEDS: PANTOPRAZOLE SODIUM IV 40 MG VIAL IV PUSH ×2 (09:25→20:50)
[2025-06-02] MEDS: FLUTICASONE PROPIONATE 0.05% NA SPR 16 GM BTL (*BKC) 1 SPRAY NASAL ×2 (09:26→20:50)
--- NOTE | 2025-06-02 09:51 | PM.IMPN ---
Progress Note: A&P Assessment and Plan (1) Acute alcoholic gastritis: Code(s): K29.20 - Alcoholic gastritis without bleeding Status: Acute (2) Alcoholic hepatitis: Code(s): K70.10 - Alcoholic hepatitis without ascites Status: Acute (3) Hypokalemia: Code(s): E87.6 - Hypokalemia Status: Acute (4) Alcoholism: Code(s): F10.20 - Alcohol dependence, uncomplicated Status: Acute (5) Alcohol withdrawal: Code(s): F10.939 - Alcohol use, unspecified with withdrawal, unspecified Status: Acute (6) High anion gap metabolic acidosis: Code(s): E87.29 - Other acidosis Status: Acute Plan 30-year-old male with history of current alcohol use disorder, history of alcohol withdrawal presents to [facility] ER on 06/01/2025 complaining of nausea vomiting and alcohol withdrawal symptoms. He drinks between 12 and 24 beers per day, reports he has had some withdrawal for a week or so, tries to drink alcohol to curb his symptoms. Last time he drank beer was on the morning of 06/01/2025, however he had nausea and vomiting associated with burning chest pain worse when he is lying down. He saw specks of blood in his vomitus but has not vomited since. ER evaluation demonstrates a cooperative male with low potassium at 3.1, anion gap metabolic acidosis 19, transaminitis, elevated lipase at 351, quad viral screen negative, chest x-ray with no acute findings, CT abdomen pelvis with contrast demonstrating normal pancreas, no acute findings,, liver enlargement and severe hepatic steatosis. He had sinus tachycardia with a normal troponin and EKG without significant ST changes, he had tremors. No hallucinations. Given potassium pill, Valium 5 mg IV x2, 2 L normal saline bolus. Protonix 40 mg IV x1, Pepcid 20 mg IV x1. Admitted on 06/01/2025 for alcohol withdrawal, hypokalemia, nausea vomiting. Alcohol withdrawal -CIWA protocol, Valium 5 mg IV q.2 hours p.r.n. for CIWA scale greater than 15 -seizure precaution, fall precaution -start Librium 50 mg p.o. q.6 hours -D5 normal saline -thiamine, folic acid, daily multivitamin Alcohol use disorder -patient is amenable to rehab in resources. Care coordination consult. Counseling provided. Alcoholic hepatitis -trend liver function enzymes Alcoholic gastritis -last time he vomited was on the morning of 06/01/2025, he appears comfortable otherwise. Reports a speck of blood, likely due to gastritis. Report for worsening and signs of hemorrhage/tear and consult Gastroenterology if appropriate. -continue Protonix 40 mg IV b.i.d. Elevated lipase mild continue to monitor CT negative for pancreatitis Hypokalemia -likely due to vomiting/poor oral intake -replaced, recheck, magnesium High anion gap metabolic acidosis -likely due to starvation/alcoholic ketosis -D5 normal saline, repeat BMP DVT prophylaxis: SCDs Code status full code Wants to discharge. Not ready for discharge. Subjective Date/time seen: 06/02/25 09:51 Interval history: Chart reviewed. No new complaints. Presents with alcohol withdrawal. Patient feels better and wants to discharge today. Review of Systems Review of Systems: All systems reviewed & are unremarkable except as noted in HPI and below (Subjective) Exam Narrative: GENERAL: Well-appearing, well-nourished, and in no acute distress. HEAD: Normocephalic, atraumatic. ENT: Mucous membranes moist. CHEST: Clear to auscultation. No respiratory distress. HEART: Tachycardic and regular. Normal peripheral pulses. ABDOMEN: Soft, nontender, nondistended. EXTREMITIES: Normal range of motion. No edema. SKIN: Warm, dry, no rash. NEURO: Mildly tremulous. Alert and oriented x3. PSYCH: Normal mood and affect. Objective Data Vital Signs Vital Signs: Vital Signs - 24 hr 06/01/25 13:50 06/01/25 16:42 06/01/25 17:21 Temperature 98 F 98.3 F Pulse Rate 109 H 110 H 116 H Pulse Rate [Monitor] Respiratory Rate 16 17 22 H Blood Pressure 152/93 H 168/107 H 160/116 H Pulse Oximetry 98 98 100 Oxygen Delivery Room Air 06/01/25 17:34 06/01/25 17:34 06/01/25 18:01 Temperature Pulse Rate 100 109 H Pulse Rate [Monitor] Respiratory Rate 20 21 H Blood Pressure 140/96 H 144/97 H Pulse Oximetry 99 98 97 Oxygen Delivery Room Air Room Air 06/01/25 18:02 06/01/25 18:37 06/01/25 18:46 Temperature Pulse Rate 106 H 95 92 Pulse Rate [Monitor] Respiratory Rate 21 H 19 23 H Blood Pressure 144/98 H Pulse Oximetry 98 99 97 Oxygen Delivery 06/01/25 19:00 06/01/25 19:01 06/01/25 19:15 Temperature Pulse Rate 109 H 97 108 H Pulse Rate [Monitor] Respiratory Rate 18 19 18 Blood Pressure 140/100 H Pulse Oximetry 96 98 98 Oxygen Delivery 06/01/25 19:42 06/01/25 19:56 06/01/25 20:00 Temperature Pulse Rate 102 H 102 H 95 Pulse Rate [Monitor] Respiratory Rate 21 H 16 17 Blood Pressure 123/84 Pulse Oximetry 98 100 99 Oxygen Delivery 06/01/25 20:01 06/01/25 20:15 06/01/25 20:42 Temperature Pulse Rate 97 99 Pulse Rate [Monitor] 94 Respiratory Rate 14 15 Blood Pressure Pulse Oximetry 99 99 Oxygen Delivery 06/01/25 22:00 06/01/25 22:53 06/01/25 23:43 Temperature 98.8 F Pulse Rate 101 H 74 Pulse Rate [Monitor] Respiratory Rate 15 Blood Pressure 149/97 H Pulse Oximetry 98 Oxygen Delivery Room Air 06/02/25 00:00 06/02/25 02:00 06/02/25 03:47 Temperature Pulse Rate 99 63 Pulse Rate [Monitor] 67 Respiratory Rate Blood Pressure Pulse Oximetry Oxygen Delivery 06/02/25 03:47 06/02/25 04:00 06/02/25 04:00 Temperature 98.4 F Pulse Rate 78 68 Pulse Rate [Monitor] Respiratory Rate 15 Blood Pressure 125/65 Pulse Oximetry 99 Oxygen Delivery Room Air 06/02/25 06:00 06/02/25 08:00 Temperature 98.1 F Pulse Rate 74 87 Pulse Rate [Monitor] Respiratory Rate 16 Blood Pressure 137/97 H Pulse Oximetry 100 Oxygen Delivery Intake/Output Intake/Output: Intake & Output 05/30/25 05/31/25 06/01/25 06/02/25 23:59 23:59 23:59 23:59 Intake Total 1999 683.8 Output Total 700 400 Balance 1300 283.8 Meds/Results Medications: Active Medications Generic Name Dose Route Start Last Admin Trade Name Freq PRN Reason Stop Dose Admin Acetaminophen 650 mg 06/01/25 19:38 06/02/25 00:14 Acetaminophen 325 Mg Tablet PO 650 mg Q4H PRN Administration Mild Pain (1-3) or Fever Chlordiazepoxide HCl 50 mg 06/01/25 03:00 06/02/25 09:28 Chlordiazepoxide (*Crx) 25 Mg Capsule PO 50 mg Q6H ZA Administration Diazepam 5 mg 06/01/25 20:41 06/01/25 21:47 Diazepam (*Crx) 5 Mg Tablet PO 5 mg Q2H PRN Administration CIWA > 15 Fluticasone Propionate 1 spray 06/01/25 21:00 06/02/25 09:26 Fluticasone Propionate 0.05% Na Spr 16 Gm Btl (*Bkc) NASAL 1 spray Q12HR ZA Administration Folic Acid 1 mg 06/02/25 09:00 06/02/25 09:25 Folic Acid 1 Mg/0.2 Ml Inj IV PUSH 1 mg QAM ZA Administration Dextrose/Sodium Chloride 1,000 mls @ 125 mls/hr 06/01/25 20:45 06/02/25 05:21 Dextrose 5% Sodium Chloride 0.9% IV CONT 125 mls/hr .Q8H ZA Infusion Multivitamins Therapeutic 1 tablet 06/02/25 09:00 06/02/25 09:25 Multivitamins Therapeutic Tab (*Bkc) PO 1 tablet QAM ZA Administration Nicotine 1 patch 06/02/25 00:40 06/02/25 01:04 Nicotine (*Pbkc) 21 Mg Patch TRANSDERM 1 patch DAILY ZA Administration Ondansetron HCl 4 mg 06/01/25 19:38 06/01/25 21:32 Ondansetron Inj 4 Mg/2 Ml Vial IV PUSH 4 mg Q4H PRN Administration Nausea Pantoprazole Sodium 40 mg 06/02/25 09:00 06/02/25 09:25 Pantoprazole Sodium Iv 40 Mg Vial IV PUSH 40 mg Q12HR ZA Administration Thiamine HCl 100 mg 06/02/25 09:00 06/02/25 09:25 Thiamine Hcl 200 Mg/2 Ml Vial IV PUSH 100 mg QAM ZA Administration Radiology Results: ITS Impressions Chest X-Ray 06/01/25 14:29 Impression: No acute cardiopulmonary abnormality. Abdomen/Pelvis CT 06/01/25 15:26 IMPRESSION: 1. No acute intra-abdominal process. Incidental findings above Labs Labs: Laboratory Results - last 24 hr 06/01/25 06/01/25 06/01/25 14:08 23:33 23:40 WBC 5.4 RBC 5.70 Hgb 17.3 Hct 47.9 MCV 84.0 MCH 30.4 MCHC 36.1 H RDW 12.8 Plt Count 197 MPV 9.0 Immature Gran % (Auto) 0.4 Neut % (Auto) 77.6 H Lymph % (Auto) 13.8 L [place] % (Auto) 7.1 Eos % (Auto) 0.2 Baso % (Auto) 0.9 Lymph # (Auto) 0.74 L [place] # (Auto) 0.4 Eos # (Auto) 0.0 Baso # (Auto) 0.1 Abs Immat Gran (auto) 0.02 Absolute Neuts (auto) 4.2 Absolute Nucleated RBC 0.000 Nucleated RBC % 0.0 % Immature Plt Fraction Sodium 135 L 137 Potassium 3.1 L 3.2 L Chloride 90 L 99 Carbon Dioxide 26 29 Anion Gap 19 H 9 BUN 5 L 3 L Creatinine 0.51 L 0.45 L Estim Creat Clear Calc 174 195 Estimated GFR > 60 > 60 Glucose 157 H 108 POC Capillary Glucose 110 H Calcium 9.2 8.8 Phosphorus Magnesium 1.9 1.4 L Total Bilirubin 0.9 AST 159 H ALT 143 H Alkaline Phosphatase 102 Troponin I < 0.012 Total Protein 8.5 H Albumin 5.1 Lipase 351 H Ethyl Alcohol 210 Influenza A (RT-PCR) Negative Influenza B (RT-PCR) Negative RSV (RT-PCR) Negative SARS-CoV-2 RNA (RT-PCR) Negative Blood Type O Positive Antibody Screen Negative 06/02/25 04:01 WBC 6.8 RBC 4.66 Hgb 14.2 D Hct 39.9 L MCV 85.6 MCH 30.5 MCHC 35.6 RDW 12.9 Plt Count 145 L MPV 9.5 Immature Gran % (Auto) 0.3 Neut % (Auto) 79.7 H Lymph % (Auto) 13.7 L [place] % (Auto) 5.0 Eos % (Auto) 0.6 Baso % (Auto) 0.7 Lymph # (Auto) 0.93 [place] # (Auto) 0.3 Eos # (Auto) 0.0 Baso # (Auto) 0.1 Abs Immat Gran (auto) 0.02 Absolute Neuts (auto) 5.4 Absolute Nucleated RBC 0.000 Nucleated RBC % 0.0 % Immature Plt Fraction 3.8 Sodium 135 L Potassium 3.6 Chloride 100 Carbon Dioxide 27 Anion Gap 8 BUN 4 L Creatinine 0.49 L Estim Creat Clear Calc 181 Estimated GFR > 60 Glucose 94 POC Capillary Glucose Calcium 8.8 Phosphorus 3.2 Magnesium 2.9 H Total Bilirubin 2.7 H AST 373 H ALT 152 H Alkaline Phosphatase 108 Troponin I Total Protein 6.7 Albumin 4.0 Lipase Ethyl Alcohol Influenza A (RT-PCR) Influenza B (RT-PCR) RSV (RT-PCR) SARS-CoV-2 RNA (RT-PCR) Blood Type Antibody Screen
[2025-06-02 10:20] LABS: Lipase 586 U/L (23-300)
--- NOTE | 2025-06-02 22:00 | PC.NURSE ---
Pt in bathroom and HR went up to 150's. RN went in to check on pt and once pt got out of bathroom, RN advised him that he should sit down for a few minutes to help his heart rate. Pt then told RN he wanted to leave. RN came to get this RN to talk to patient. This RN talked to pt and educated him on risks of leaving. Pt stated he felt better and felt that he did not need to be here. This RN notified provider Lenore Shetty. Pt read and signed AMA form and this RN witnessed it. Lenore Shetty signed AMA form as the provider.
--- NOTE | 2025-06-02 22:07 | P.PNCROSS_ITS ---
Event Note Event Note Event Note: Patient did not wish to remain admitted to the hospital and requested to leave against medical advice. Bedside RN explained the importance of remaining in the hospital for monitoring his symptoms and to properly manage his care. Bedside RN explained the risk of further decompensation and the risk of should he choose to leave against medical advice. Patient is A&Ox4, makes his own medical decisions, and is ambulatory. Patient verbalized understanding and wished to p roceed with signing AMA paperwork. Patient signed the paper stating he understood the risks. Patient left with his belongings, requiring no assistance.
== END 2025-06-02 21:55 | disposition left against medical advice (07) ==
LOC: ANHED 19:45 → ANHIMU 21:18
PROVIDERS: Nurse Practitioner Family; Admitting Provider General Practice; Emergency Provider Emergency Medicine; Visit Provider Internal Medicine
DX: K29.20 Alcoholic gastritis without bleeding (principal); K70.10 Alcoholic hepatitis without ascites; F10.239 Alcohol dependence with withdrawal, unspecified; F10.229 Alcohol dependence with intoxication, unspecified; Y90.7 Blood alcohol level of 200-239 mg/100 ml; E87.29 Other acidosis; E87.6 Hypokalemia; I48.91 Unspecified atrial fibrillation; Z20.822 Contact with and (suspected) exposure to COVID-19; Z53.29 Procedure and treatment not carried out because of patient's decision for other reasons
CPT/HCPCS: 36415; 71046; 74177; 80048; 80053; 82077; 82948; 83690; 83735; 84100; 84484; 85025; 85055; 86850; 86900; 86901; 87637; 93005; 96361; 96374; 96375; 96376; 99285; A9270; G0378; G0379; J2405; J2470; J3360; J3411; J3475; J3480; J7030; J7042; Q9967